=== PATIENT | female | born 1970 | race Hispanic/Latino ===

== ENCOUNTER 2018-03-12 22:17 | Inpatient (IN) | payer OTHER ==
[2018-03-12 23:12] LABS: Absolute Lymphocytes (CBC) 3.1 K/uL (0.7-4.9); Absolute Monocytes 0.7 K/uL (0.1-1.3); Basophils % 0.6 % (0-1.3); Eosinophils % 1.7 % (0-4.4); Lymphocytes % 28.1 % (15.3-44.8); MCV 89.2 fL (80-100); MPV 8.4 fL (7.6-11.3); Monocytes % 6.1 % (3.3-12.3); RBC Red Blood Cell Count 4.37 M/uL (3.86-4.86)
[2018-03-12] MEDS ORDERED: MORPHINE 4 MG/ML SYR ONE (23:13)
[2018-03-12] MEDS ORDERED: NA CHLORIDE 0.9% 2,000 ML ONE (23:13)
[2018-03-12] MEDS ORDERED: ONDANSETRON 4 MG/2 ML VIAL ONE (23:13)
[2018-03-12 23:29] LABS: Urine Blood NEGATIVE (NEG); Urine Glucose NEGATIVE (NEG); Urine Protein NEGATIVE (NEG)
[2018-03-12 23:30] LABS: Urine RBC <5 /HPF (NONE SEEN)
[2018-03-12 23:30] LABS: ALT/SGPT 24 U/L (12-78); AST/SGOT 13 U/L (15-37); Albumin 3.5 g/dL (3.4-5.0); Alkaline Phosphatase 88 U/L (45-117); Amylase Level 52 U/L (25-115); BUN Blood Urea Nitrogen 13 mg/dL (7-18); Bicarbonate 31 mmol/L (21-32); Bilirubin Direct 0.1 mg/dL (0-0.2); Bilirubin Total 0.3 mg/dL (0.2-1.0); Glucose Level 93 mg/dL (74-106); Lipase 123 U/L (73-393); Potassium 3.5 mmol/L (3.5-5.1); Protein, Total 7.2 g/dL (6.4-8.2); Sodium Level 142 mmol/L (136-145)
[2018-03-12 23:31] LABS: Urine Bacteria <20 /HPF (<20); Urine Culture Reflex Order NOT NEEDED
[2018-03-13] MEDS ORDERED: MORPHINE 4 MG/ML SYR ONE (01:11)
--- NOTE | 2018-03-13 01:21 | EDPHYS ---
Physician Documentation [facility] Name: Catherine Rockwell Age: 48 yrs Sex: Female : 1970 Arrival Date: 03/12/2018 Time: 22:22 Bed 18 Private MD: ED Physician Sourav Webster HPI: 03/12 22:54 This 48 yrs old Female presents to ER via Ambulatory with complaints of pkl Abdominal Pain, Pelvic Pain. 22:54 The patient presents with abdominal pain in the left lower quadrant. Onset: The pkl symptoms/episode began/occurred 2 month(s) ago, and became worse today. 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 - Social history:: Smoking status: Patient uses tobacco products, smokes one-half pack cigarettes per day. - Ebola Screening: : No symptoms or risks identified at this time. ROS: 22:54 Eyes: Negative for injury, pain, redness, and discharge, ENT: Negative for injury, pkl pain, and discharge, Neck: Negative for injury, pain, and swelling, Cardiovascular: Negative for chest pain, palpitations, and edema, Respiratory: Negative for shortness of breath, cough, wheezing, and pleuritic chest pain. 22:54 Abdomen/GI: Positive for abdominal pain, of the left lower quadrant. 22:54 Back: Negative for acute changes. 22:54 : Negative for urinary symptoms. 22:54 MS/extremity: Negative for acute changes. 22:54 Skin: Negative for rash. 22:54 Neuro: Negative for altered mental status. Exam: 22:54 Head/Face: Normocephalic, atraumatic. Eyes: Pupils equal round and reactive to light, pkl extra-ocular motions intact. Lids and lashes normal. Conjunctiva and sclera are non-icteric and not injected. Cornea within normal limits. Periorbital areas with no swelling, redness, or edema. ENT: Nares patent. No nasal discharge, no septal abnormalities noted. Tympanic membranes are normal and external auditory canals are clear. Oropharynx with no redness, swelling, or masses, exudates, or evidence of obstruction, uvula midline. Mucous membranes moist. Neck: Trachea midline, no thyromegaly or masses palpated, and no cervical lymphadenopathy. Supple, full range of motion without nuchal rigidity, or vertebral point tenderness. No Meningismus. Chest/axilla: Normal chest wall appearance and motion. Nontender with no deformity. No lesions are appreciated. Cardiovascular: Regular rate and rhythm with a normal S1 and S2. No gallops, murmurs, or rubs. Normal PMI, no JVD. No pulse deficits. Respiratory: Lungs have equal breath sounds bilaterally, clear to auscultation and percussion. No rales, rhonchi or wheezes noted. No increased work of breathing, no retractions or nasal flaring. 22:54 Abdomen/GI: Bowel sounds: normal, Palpation: soft, mild abdominal tenderness, in the left lower quadrant. 22:54 Back: Exam negative for acute changes. 22:54 : Exam negative for acute changes. 22:54 Musculoskeletal/extremity: Exam is negative for acute changes. 22:54 Skin: Exam negative for rash. 22:54 Neuro: Orientation: is normal, Mentation: is normal, Cranial nerves: grossly normal, Motor: is normal. Vital Signs: 22:32 BP 120 / 49; Pulse 97; Resp 18; Temp 97.9(O); Pulse Ox 97% on R/A; Weight 90.72 kg; lp1 Height 5 ft. 3 in. (160.02 cm); Pain 6/10; 03/13 00:55 BP 122 / 55; Pulse 85; Resp 18; Pulse Ox 99% on R/A; Pain 5/10; lp1 02:02 BP 135 / 58; Pulse 88; Resp 16; Pulse Ox 99% ; Pain 0/10; ao 03/12 22:32 Body Mass Index 35.43 (90.72 kg, 160.02 cm) lp1 MDM: 03/12 22:44 Patient medically screened. pkl 03/13 00:21 Data reviewed: vital signs, nurses notes, lab test result(s), radiologic studies, CT pkl scan. 01:16 ED course: Talked to Dr. Lee. Admit. pkl 03/12 22:52 Order name: Amylase, Serum pkl 03/12 22:52 Order name: Basic Metabolic Panel pkl 03/12 22:52 Order name: CBC with Diff; Complete Time: 23:26 pkl 03/12 22:52 Order name: Creatinine for Radiology; Complete Time: 23:32 pkl 03/12 22:52 Order name: Hepatic Function; Complete Time: 23:32 pkl 03/12 22:52 Order name: Lipase; Complete Time: 23:32 pkl 03/12 22:52 Order name: Urine Microscopic Only; Complete Time: 23:32 pkl 03/12 22:52 Order name: CT Abd/Pelvis - W/Contrast pkl 03/12 22:53 Order name: Amylase Level; Complete Time: 23:32 EDMS 03/12 22:53 Order name: Basic Metabolic Panel; Complete Time: 23:32 EDMS 03/12 23:02 Order name: Urine Dipstick--Ancillary (enter results); Complete Time: 23:32 2 03/12 23:02 Order name: Urine --Ancillary (enter results); Complete Time: 23:32 2 03/12 22:52 Order name: IV Saline Lock; Complete Time: 23:17 pkl 03/12 22:52 Order name: Labs collected and sent; Complete Time: 23:16 pkl 03/12 22:52 Order name: Urine Dipstick-Ancillary (obtain specimen); Complete Time: 23:16 pkl Administered Medications: 03/12 23:16 Drug: NS 0.9% 1000 ml Route: IV; Rate: 1000 ml; Site: left antecubital; lp1 03/13 02:16 Follow up: IV Status: Completed infusion; IV Intake: 1000ml ao 03/12 23:16 Drug: morphine 4 mg Route: IVP; Site: left antecubital; lp1 03/13 00:00 Follow up: Response: Pain is decreased lp1 03/12 23:16 Drug: Zofran 4 mg Route: IVP; Site: left antecubital; lp1 03/13 00:00 Follow up: Response: No adverse reaction lp1 01:10 Drug: morphine 4 mg Route: IVP; Site: left antecubital; ao 01:48 Follow up: Response: No adverse reaction ao 02:00 Drug: NS 0.9% 1000 ml Route: IV; Rate: 125 ml/hr; Site: left antecubital; ao 02:16 Follow up: IV Status: Infusion continued upon admission ao Disposition: 03/13/18 01:20 Hospitalization ordered by Vijay Lee for Inpatient Admission. Preliminary diagnosis is Diverticulitis with contained perforation. - Bed requested for Telemetry/MedSurg (Inpatient). - Status is Inpatient Admission. fc - Condition is Stable. - Problem is new. - Symptoms are unchanged. UTI on Admission? No Signatures: Dispatcher [employer] EDMS Asuncion Brown RN RN Sourav Summers MD MD pkRosangela Julian RN RN Yeimi Dinero RN RN lp1 Osiel Mclean RN RN ao Corrections: (The following items were deleted from the chart) 01:56 01:20 Hospitalization Ordered by Vijay Lee MD for Inpatient Admission. Preliminary kl diagnosis is Diverticulitis with contained perforation. Bed requested for Telemetry/MedSurg (Inpatient). Status is Inpatient Admission. Condition is Stable. Problem is new. Symptoms are unchanged. UTI on Admission? No. pkl 02:24 01:56 03/13/2018 01:20 Hospitalization Ordered by Vijay Lee MD for Inpatient fc Admission. Preliminary diagnosis is Diverticulitis with contained perforation. Bed requested for Telemetry/MedSurg (Inpatient). Status is Inpatient Admission. Condition is Stable. Problem is new. Symptoms are unchanged. UTI on Admission? No. kl
--- NOTE | 2018-03-13 01:21 | ER ---
Nurse's Notes [facility] Name: Catherine Rockwell Age: 48 yrs Sex: Female : 1970 Arrival Date: 03/12/2018 Time: 22:22 Bed 18 Private MD: Diagnosis: Diverticulitis with contained perforation Presentation: 03/12 22:31 Presenting complaint: Patient states: Pelvic pressure/pain that has been for 2 months, lp1 but today began to have pain to LLQ of abdomen; Denies any fever, N/V; Diarrhea x 1 today. Transition of care: patient was not received from another setting of care. Onset of symptoms was March 12, 2018. Risk Assessment: Do you want to hurt yourself or someone else? Patient reports no desire to harm self or others. Initial Sepsis Screen: Does the patient meet any 2 criteria? No. Patient's initial sepsis screen is negative. Does the patient have a suspected source of infection? No. Patient's initial sepsis screen is negative. Care prior to arrival: None. 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 - Social history:: Smoking status: Patient uses tobacco products, smokes one-half pack cigarettes per day. - Ebola Screening: : No symptoms or risks identified at this time. Screenin:36 Abuse screen: Denies threats or abuse. Denies injuries from another. Nutritional lp1 screening: No deficits noted. Tuberculosis screening: No symptoms or risk factors identified. Fall Risk None identified. Assessment: 22:34 General: Appears in no apparent distress. Behavior is appropriate for age. Pain: lp1 Complains of pain in suprapubic area and left lower quadrant Pain currently is 6 out of 10 on a pain scale. Quality of pain is described as "spasm-like" Pain began today. Neuro: Level of Consciousness is awake, alert, obeys commands. Cardiovascular: Patient's skin is warm and dry. Respiratory: Respiratory effort is even, unlabored. GI: Abdomen is non-distended, Bowel sounds present X 4 quads. Abdomen is tender to palpation in suprapubic area and left lower quadrant. : Denies burning with urination, discharge. EENT: No signs and/or symptoms were reported regarding the EENT system. Derm: Skin is pink, warm \\T\\ dry. Musculoskeletal: Circulation, motion, and sensation intact. 23:17 Reassessment: CT notified of patient completing oral contrast at 2309. lp1 03/13 00:55 Reassessment: Returned from CT; States pain to LLQ of abdomen is coming back; Provider lp1 notified. 01:20 Reassessment: Received report from TESS Jalloh who was move to a different pot. Patient ao is AOX3 with stable VS. Patient o be medicated with morphine for patient. Awaiting on admission orders at this time. Patient is aware of admission. 02:02 Reassessment: Patient appears in no apparent distress at this time. Patient and/or ao family updated on plan of care and expected duration. Pain level reassessed. Patient is alert, oriented x 3, equal unlabored respirations, skin warm/dry/pink. Waiting on room assignment. Vital Signs: 03/12 22:32 BP 120 / 49; Pulse 97; Resp 18; Temp 97.9(O); Pulse Ox 97% on R/A; Weight 90.72 kg; lp1 Height 5 ft. 3 in. (160.02 cm); Pain 6/10; 03/13 00:55 BP 122 / 55; Pulse 85; Resp 18; Pulse Ox 99% on R/A; Pain 5/10; lp1 02:02 BP 135 / 58; Pulse 88; Resp 16; Pulse Ox 99% ; Pain 0/10; ao 03/12 22:32 Body Mass Index 35.43 (90.72 kg, 160.02 cm) lp1 ED Course: 03/12 22:22 Patient arrived in ED. es 22:31 Yeimi Dinero, RN is Primary Nurse. lp1 22:32 Triage completed. lp1 22:33 Arm band placed on right wrist. lp1 22:36 Patient has correct armband on for positive identification. Bed in low position. lp1 22:44 Sourav Webster MD is Attending Physician. pkl 23:00 Inserted saline lock: 20 gauge in left antecubital area, using aseptic technique. Blood lp1 collected. 23:00 Urine collected: clean catch specimen, clear. lp1 09 00:[address] via wheelchair. kw1 00:41 CT Abd/Pelvis - W/Contrast In Process Unspecified. EDMS 00:42 CT completed. Patient tolerated procedure well. Patient moved back from CT. kw1 00:59 Report given to Osiel Mclean RN. lp1 01:18 Vijay Lee MD is Hospitalizing Provider. pkl 02:12 No provider procedures requiring assistance completed. Patient admitted, IV remains in ao place. Administered Medications: 03/12 23:16 Drug: NS 0.9% 1000 ml Route: IV; Rate: 1000 ml; Site: left antecubital; lp1 03/13 02:16 Follow up: IV Status: Completed infusion; IV Intake: 1000ml ao 03/12 23:16 Drug: morphine 4 mg Route: IVP; Site: left antecubital; lp1 03/13 00:00 Follow up: Response: Pain is decreased lp1 03/12 23:16 Drug: Zofran 4 mg Route: IVP; Site: left antecubital; lp1 03/13 00:00 Follow up: Response: No adverse reaction lp1 01:10 Drug: morphine 4 mg Route: IVP; Site: left antecubital; ao 01:48 Follow up: Response: No adverse reaction ao 02:00 Drug: NS 0.9% 1000 ml Route: IV; Rate: 125 ml/hr; Site: left antecubital; ao 02:16 Follow up: IV Status: Infusion continued upon admission ao Intake: 02:16 IV: 1000ml; Total: 1000ml. ao Outcome: 01:20 Decision to Hospitalize by Provider. pkl 02:15 Admitted to Med/surg accompanied by nurse, room 204, Report called to TESS Colón ao 02:15 Condition: stable 02:15 Instructed on the need for admit. 02:24 Patient left the ED. fc Signatures: Dispatcher [employer] EDMS Sourav Webster MD MD pkClover Reaves Felicia, RN RN Yeimi Dinero RN RN lp1 Osiel Mclean RN RN ao Wilhelm, Kimberly kw1
[2018-03-13] MEDS ORDERED: ACETAMINOPHEN 500 MG TAB PO PRN (01:31)
[2018-03-13] MEDS: D5 0.45 NS 1,000 ML IV SCH ×4 (02:38→22:24)
[2018-03-13] MEDS: Levofloxacin500mg IV 500 MG/100 ML BAG IV SCH (02:42)
[2018-03-13] MEDS ORDERED: PNEUMOCOCCAL VACCINE 0.5 ML IMVAC ONE (05:00)
[2018-03-13] MEDS: MORPHINE 4 MG/ML SYR IV PRN ×5 (05:14→22:25)
[2018-03-13] MEDS: METRONIDAZOLE 500mg IVPB 500 MG/100 ML BAG IV SCH ×3 (05:15→18:10)
--- NOTE | 2018-03-13 06:57 | RAD REPORT ---
EXAM DESCRIPTION: CT - Abdomen Pelvis W Contrast - 03/13/2018 3:34 am CLINICAL HISTORY: Abdominal pain, pelvic pressure and pain, left lower quadrant localization A preliminary report was provided at the time of the study and reviewed prior to final report. COMPARISON: None. TECHNIQUE: Biphasic, helical CT imaging of the abdomen and pelvis was performed following 100 ml non -ionic IV contrast. Oral contrast was given. All CT scans are performed using dose optimization technique as appropriate and may include automated exposure control or mA/KV adjustment according to patient size. FINDINGS: No suspicious findings in the lung bases. The liver, spleen, and pancreas show no suspicious findings. Liver is borderline fatty infiltrated. G allbladder is absent. Biliary tree within normal limits for post cholecystectomy patient. Symmetric renal function is seen with no hydronephrosis or suspicious renal mass. No pyelonephritis o r acute renal parenchymal process. No adrenal abnormality. No gastric dilatation or wall thickening. No small bowel abnormality. Appendix is normal. From cecum through descending colon there is no significant finding. Patient has a relatively mild sigmoid diverticulosis pattern. At the proximal sigmoid there is relati vely mild wall thickening. Extending anteriorly and medially towards the midline there is a 3.5 centi meter area of edematous/inflammatory stranding and punctate free air. The stranding and abuts the ant erior bladder wall with secondary urinary bladder wall involvement. No air within the lumen of the bl adder. Trace amount of fluid is present within the central portion of the inflammatory extraluminal m ass. This is not yet a drainable fluid collection. Uterus is absent. No suspicious ovarian finding. There is a small 15 millimeter cyst of the right ova ry. No pneumatosis. No other area of free air. No abnormal fluid collection. No hernia, mass or bulk y lymphadenopathy. No suspicious bony findings. IMPRESSION: Acute diverticulitis of the proximal sigmoid colon with a 3.5 centimeter area of extralu flako inflammatory stranding, free air and trace free fluid. This collection is medial to the sigmoid colon where there is secondary involvement of the anterior u rinary bladder wall. This is not yet a drainable fluid collection.
--- NOTE | 2018-03-13 15:25 | P.HP ---
Date of Service: 03/13/18 PC: This 48-year-old female presents emergency room with severe lower abdominal pain for diagnosis and treatment. HPC: Patient has been having intermittent pain off and on for the last few weeks. Describes it as appearing to be used cramping in nature. Located just beyond the pubic symphysis. It shoots up the inside his house she describes it. PMH: Morbid obesity PSHx: Negative SOC: No known allergy SYS REVIEW: No cough, wheeze, shortness of breath. No chest pain or palpitations. States he may have sleep apnea. No altercation bowel habit. O/E awake alert comfortable at the moment HEENT: Not jaundiced Chest: Air movement equal bilaterally ABD: Soft. Mild suprapubic tenderness but no guarding or rebound LOCO: Intact DATA: CT scan shows diverticular disease with 2 small areas of inflammatory processes p.m. the bladder IMPRESSION: Diverticulitis, possible developing abscess PLAN: The patient has been admitted to the hospital for observation and pain control. She will also receive entered the antibiotics. We will follow closer clinical results and her white cell count. At the current time she is stable, and is not requiring any emergency surgical intervention. The patient leave the hospital for the next 24-48 hr on IV antibiotics. She will most likely be discharged on the time an oral medication. We will talk to her further down the line about possible elective resection. She inner has been understand, questions were answered, and they are content with this outlined treatment.
[2018-03-14] MEDS: METRONIDAZOLE 500mg IVPB 500 MG/100 ML BAG IV SCH ×5 (00:21→23:44)
[2018-03-14] MEDS: Levofloxacin500mg IV 500 MG/100 ML BAG IV SCH (01:27)
[2018-03-14] MEDS: MORPHINE 4 MG/ML SYR IV PRN ×2 (03:58→13:00)
[2018-03-14 05:45] LABS: Absolute Lymphocytes (CBC) 1.9 K/uL (0.7-4.9); Absolute Monocytes 0.5 K/uL (0.1-1.3); Absolute Neutrophil 7.7 K/uL (1.8-8.0); Basophils % 0.7 % (0-1.3); Hematocrit 36.7 % (36.0-45.0); Lymphocytes % 18.3 % (15.3-44.8); MCV 89.8 fL (80-100); MPV 8.4 fL (7.6-11.3); Monocytes % 5.3 % (3.3-12.3); RBC Red Blood Cell Count 4.09 M/uL (3.86-4.86)
[2018-03-14] MEDS: PROMETHAZINE 25 MG/ML VIAL IV PRN ×2 (05:47→19:40)
[2018-03-14 05:52] LABS: BUN Blood Urea Nitrogen 6 mg/dL (7-18); Bicarbonate 28 mmol/L (21-32); Glucose Level 130 mg/dL (74-106); Potassium 3.8 mmol/L (3.5-5.1); Sodium Level 138 mmol/L (136-145)
[2018-03-14] MEDS: D5 0.45 NS 1,000 ML IV SCH ×2 (10:28→18:06)
--- NOTE | 2018-03-14 15:39 | P.PN ---
Date of Service: 03/14/18 No complaints today, tolerated her full liquids. Feels much better. Has only had 1 route 2 twinges of pain from her lower abdomen. O: Abdomen is soft, nontender, no guarding or rebound. White cell count is improved. A: Improving P: Continue IV antibiotics, advance diet as tolerated. Anticipate discharge soon.
[2018-03-14] MEDS: HYDROCODONE/APAP 7.5/325 MG TAB PO PRN (18:06)
[2018-03-15] MEDS: Levofloxacin500mg IV 500 MG/100 ML BAG IV SCH (01:50)
[2018-03-15] MEDS: MORPHINE 4 MG/ML SYR IV PRN ×2 (03:04→22:20)
[2018-03-15] MEDS: METRONIDAZOLE 500mg IVPB 500 MG/100 ML BAG IV SCH ×3 (05:00→18:19)
[2018-03-15] MEDS: D5 0.45 NS 1,000 ML IV SCH ×3 (09:46→18:20)
[2018-03-15] MEDS: HYDROCODONE/APAP 7.5/325 MG TAB PO PRN ×2 (10:22→14:28)
--- NOTE | 2018-03-15 22:36 | P.PN ---
Date of Service: 03/15/18 S: Patient states she is doing better today, less pain. He has some discomfort late this evening. Had 2 bowel movements, and is tolerating a diet. States her discomfort occurs when her bladder gets full. O: Abdomen is soft, minimal tenderness on deep palpation A: White cell count is normal with slight left shift P: I will repeat her CBC in the a.m.. If it remains normal, and she is still tolerating a diet, will discharge her at that time. She will be sent home on antibiotics as well as pain medicine. She will follow up with me in my office on Tuesday. At that point we will evaluate whether not of repeat CT scan would be of benefit. I have discussed this plan with the patient and her spouse. lázaro
[2018-03-16] MEDS: METRONIDAZOLE 500mg IVPB 500 MG/100 ML BAG IV SCH ×3 (00:19→13:39)
[2018-03-16] MEDS: Levofloxacin500mg IV 500 MG/100 ML BAG IV SCH (01:51)
[2018-03-16] MEDS: D5 0.45 NS 1,000 ML IV SCH ×2 (01:51→10:00)
[2018-03-16] MEDS: MORPHINE 4 MG/ML SYR IV PRN (02:02)
[2018-03-16 04:45] LABS: Absolute Lymphocytes (CBC) 2.6 K/uL (0.7-4.9); Absolute Monocytes 0.8 K/uL (0.1-1.3); Absolute Neutrophil 7.7 K/uL (1.8-8.0); Basophils % 0.5 % (0-1.3); Eosinophils % 1.8 % (0-4.4); Hematocrit 40.4 % (36.0-45.0); MCH 30.3 pg (27.0-35.0); MCV 89.5 fL (80-100); MPV 8.6 fL (7.6-11.3); Monocytes % 7.2 % (3.3-12.3); RBC Red Blood Cell Count 4.52 M/uL (3.86-4.86)
[2018-03-16] MEDS: PROMETHAZINE 25 MG/ML VIAL IV PRN (14:32)
--- NOTE | 2018-03-16 17:05 | RAD REPORT ---
EXAM DESCRIPTION: CT - Chest Abd Pelvis Wo Con - 03/16/2018 4:50 pm CLINICAL HISTORY: Chest and abdominal pain. COMPARISON: March 12, 2018 TECHNIQUE: Computed axial tomography of the chest, abdomen and pelvis was obtained. Oral contrast wa s given. IV contrast was not requested. All CT scans are performed using dose optimization technique as appropriate and may include automated exposure control or mA/KV adjustment according to patient size. FINDINGS: The evaluation of mediastinum, chanell, vessels and solid organs is limited secondary to the lack of IV contrast administration No mediastinal or hilar lymphadenopathy is seen. A pleural effusion is not present. A pericardial effusion is not seen. Lungs are clear. The liver, spleen, pancreas, adrenals and kidneys appear grossly normal. The gallbladder has been removed The wall of the proximal sigmoid colon is thickened. Diverticula are noted. The phlegmonous collectio n anteromedial to the sigmoid colon is minimally diminished in size. A couple of the air bubbles have resolved. The wall of the adjacent bladder is thickened. A fluid-filled abscess is not noted IMPRESSION: Minimal improvement in a perforated sigmoid diverticulitis
--- NOTE | 2018-03-16 17:31 | P.DS ---
Admission Date: 03/13/18 Discharge Date: 03/16/18 Disposition: ROUTINE DISCHARGE Discharge Condition: GOOD Reason for Admission: Abdominal pain Brief History of Present Illness: This patient presented emergency room with severe abdominal pain for diagnosis and treatment. Has noticed that she has been having pain, particularly when she has to empty her bladder. Describes it as severe, shooting pain, up into her back. Hospital Course: The patient was seen in the emergency room. A CT scan demonstrated in the area between the bladder and the sigmoid colon with some phlegmonous changes and some small pockets of air in the subcutaneous tissue. The patient was admitted with a presumptive diagnosis of diverticulitis with inflammatory changes. She was started on IV antibiotics. She has responded to the point were her pain is a lot less, she is tolerating a diet, and she feels much better. The white cell count this morning showed that her white count had bumped to 11,000. The repeat CT scan shows minimal improvement to the area with IV antibiotics however some of the air pockets appear to have resolved. I have discussed with her and her her options. At the current time she would like to go home , continue on oral antibiotics, and have some pain medicine as backup. She understands issues she wished are running temperature, fever, notice a pain in the quality of her discomfort that she has returned to the emergency room, or contact me. She will be see me in my office on Tuesday. I have explained to within is possible that she may develop an abscess, but its location being so close to the anterior wall with no intervening bowel it may possibly be percutaneously drained. To take her to the operating room now for a sigmoid resection would necessitate the most likely having to perform a colostomy and a second-stage procedure. She would prefer outpatient therapy to see if all her issues resolve with a follow-up CT scan a couple weeks. Vital Signs/Physical Exam: Temp Pulse Resp BP Pulse Ox 97.7 F 81 18 120/73 94 03/16/18 12:00 03/16/18 12:00 03/16/18 12:00 03/16/18 12:00 03/16/18 12:00 Laboratory Data at Discharge: WBC 11.4 K/uL (4.3-10.9) H 03/16/18 04:15 Hgb 13.7 g/dL (12.0-15.0) 03/16/18 04:15 Hct 40.4 % (36.0-45.0) 03/16/18 04:15 Plt Count 303 K/uL (152-406) 03/16/18 04:15 Sodium 138 mmol/L (136-145) 03/14/18 05:20 Potassium 3.8 mmol/L (3.5-5.1) 03/14/18 05:20 BUN 6 mg/dL (7-18) L 03/14/18 05:20 Creatinine 0.70 mg/dL (0.55-1.3) 03/14/18 05:20 Glucose 130 mg/dL (74-106) H 03/14/18 05:20 Total Bilirubin 0.3 mg/dL (0.2-1.0) 03/12/18 23:00 AST 13 U/L (15-37) L 03/12/18 23:00 ALT 24 U/L (12-78) 03/12/18 23:00 Alkaline Phosphatase 88 U/L (45-117) 03/12/18 23:00 Amylase 52 U/L (25-115) 03/12/18 23:00 Lipase 123 U/L (73-393) 03/12/18 23:00 Home Medications: Biotin 1 tab PO DAILY 03/13/18 Lactobacillus Acidophilus [Acidophilus] 1 tab PO DAILY 03/13/18
== END 2018-03-16 18:51 | disposition home or self-care (01) | DRG 392 ==
LOC: ER 22:17 → ERHOLD 03-13 01:29 → 2ND 03-13 02:07
PROVIDERS: ADMIT Surgery; ATTEND Surgery
DX: K57.92 Diverticulitis of intestine, part unspecified, without perforation or abscess without bleeding (principal); Z23 Encounter for immunization
CPT/HCPCS: 36415; 71250; 74176; 74177; 80048; 80076; 81003; 81015; 81025; 82150; 83690; 85025; 90670; 96361; 96374; 96375; 99285; G0009; J2405; J2550; J7030; Q9967

== ENCOUNTER 2019-01-04 16:18 | Inpatient (IN) | payer OTHER ==
--- OUTSIDE RECORDS SUMMARY | 2019-01-04 16:23 | XMS REPORT | Continuity of Care Document ---
:1970 Author Organization [facility] Care Team Providers Name Role Phone [employer] Unavailable Unavailable Problems Problem Status Onset Classification Date Comments Source Date Reported Discharge 01/05/2017 [place] Diagnosis: 7 [place] Diverticulitis Discharge 01/05/2017 [place] Diagnosis: Urinary 7 [place] tract infection Discharge 10/12/2016 [place] Diagnosis: Upper 7 [place] respiratory infection FEVER Active [place] 7 [place] Discharge 10/11/2016 [place] Diagnosis: Cough 7 [place] Discharge 10/11/2016 [place] Diagnosis: Tobacco 7 [place] use disorder Discharge 10/11/2016 [place] Diagnosis: Viral 7 [place] syndrome FEVER, DIARRHEA Active [place] 7 [place] Medications Medication Details Route Status Patient Ordering Order Source Instructions Provider Date Acetaminophen 300 1 - 2 tab, PO, Active MH MG / Codeine Q4H, PRN Pain, X 2017 [place] Phosphate 30 MG 3 day, # 20 tab, [place] Oral Tablet 0 Refill(s) [Tylenol with Codeine #3] ciprofloxacin 500 500 mg=1 tab, Active 01/02/ MH mg oral tablet PO, Q12H, X 10 2017 [place] day, # 20 tab, 0 [place] Refill(s) Metronidazole 500 500 mg=1 tab, Active 01/02/ MH MG Oral Tablet PO, Q8H, X 10 2017 [place] [Flagyl] day, # 30 tab, 0 [place] Refill(s) 200 ML 400 mg, 200 mL, Inactive Ciprofloxacin 2 Route: IVPB, 2016 [place] MG/ML Injection Drug form: INJ, [place] [id number], Dosing Weight 82.045, kg, Start date: 01/02/17 3:00:00 CDT, Duration: 10 day, Stop date: 01/11/17 15:00:00 CDT, ABX Indication: Intra-abdominal InfectionNotes: Do not refrigerate Flagyl 500 mg, 100 mL, No Longer Route: IVPB, Active 2016 [place] Drug form: INJ, [place] Q8H, Dosing Weight 82.045, kg, Start date: 01/01/17 22:00:00 CDT, Duration: 10 day, Stop date: 01/11/17 14:00:00 CDT, ABX Indication: Intra-abdominal InfectionNotes: (Same as: Flagyl) Avoid alcohol. sodium chloride 1,000 mL, Rate: No Longer 0.9% 1000 ml INJ 100 ml/hr, Active 2016 [place] 1,000 mL Infuse over: 10 [place] hr, Route: IV, Dosing Weight 82.045 kg, Total Volume: 1,000, Start date: 01/01/17 14:08:00 CDT, Duration: 30 day, Stop date: 01/31/17 14:07:00 CDT tramadol 50 mg, 1 tab, No Longer hydrochloride 50 Route: PO, Drug Active 2016 [place] MG Oral Tablet form: TAB, Q6H, [place] Dosing Weight 82.045, kg, PRN Pain Score 1-3, Start date: 01/01/17 14:06:00 CDT, Duration: 30 day, Stop date: 01/31/17 14:05:00 CDTNotes: Not to exceed 400mg/day. (Same As: Ultram) Morphine 2 mg, 0.5 mL, No Longer Route: IVP, Drug Active 2016 [place] form: SOLN, Q4H, [place] Dosing Weight 82.045, kg, PRN Pain Score 4-6, Start date: 01/01/17 14:06:00 CDT, Duration: 30 day, Stop date: 01/31/17 14:05:00 CDTNotes: (Same as:MORPhine Sulfate) Zofran 4 mg, 2 mL, No Longer Route: IVP, Drug Active 2016 [place] form: INJ, Q4H, [place] Dosing Weight 82.045, kg, PRN Nausea, Start date: 01/01/17 14:06:00 CDT, Duration: 30 day, Stop date: 01/31/17 14:05:00 CDTNotes: (Same as: Zofran) MEDICATION WASTE Product Size: 4 mg Product Wasted: ___ mg Tylenol 650 mg, 2 tab, No Longer Route: PO, Drug Active 2016 [place] form: TAB, Q4H, [place] Dosing Weight 82.045, kg, PRN For Temp > 100.4 F, Start date: 01/01/17 14:06:00 CDT, Duration: 30 day, Stop date: 01/31/17 14:05:00 CDTNotes: Do not exceed 4 gm/day. (Same as: Tylenol) Dilaudid 1 mg, Route: Inactive IVP, ONCE, 2016 [place] Dosing Weight [place] 82.045, kg, Priority: STAT, Start date: 01/01/17 13:13:00 CDT, Stop date: 01/01/17 13:13:00 CDT Flagyl 500 mg, Route: Inactive IVPB, ONCE, 2016 [place] Dosing Weight [place] 82.045, kg, Priority: STAT, Start date: 01/01/17 13:05:00 CDT, Duration: 1 doses or times, Stop date: 01/01/17 13:05:00 CDT, ABX Indication: Intra-abdominal Infection Cipro 400 mg, 200 mL, Inactive Route: IVPB, 2016 [place] Drug form: INJ, [place] ONCE, Dosing Weight 82.045, kg, Priority: STAT, Start date: 01/01/17 13:05:00 CDT, Duration: 1 doses or times, Stop date: 01/01/17 13:05:00 CDT, ABX Indication: Intra-abdominal InfectionNotes: Do not refrigerate Metronidazole 500 500 mg=1 tab, No Longer MG Oral Tablet PO, Q8H, X 10 Active 2016 [place] [Flagyl] day, # 30 tab, 0 [place] Refill(s) Ondansetron 4 mg, Route: Inactive IVP, ONCE, 2016 [place] Dosing Weight [place] 82.045, kg, Priority: STAT, Start date: 01/01/17 12:11:00 CDT, Stop date: 01/01/17 12:11:00 CDT Ketorolac 30 mg, Route: Inactive IVP, ONCE, 2016 [place] Dosing Weight [place] 82.045, kg, Priority: STAT, Start date: 01/01/17 12:11:00 CDT, Stop date: 01/01/17 12:11:00 CDT Sodium Chloride 1,000 mL, 2,000 Inactive 0.154 MEQ/ML ml/hr, Infuse 2017 [place] Injectable Over: 30 [place] Solution minutes, Route: IV, ONCE, Priority: STAT, Dosing Weight 82.045 kg, Start date: 01/01/17 12:11:00 CDT, Duration: 1 doses or times, Stop date: 01/01/17 12:11:00 CDT Saline Flush 0.9% 10 mL, Route: No Longer IVP, Drug Form: Active 2017 [place] INJ, Dosing [place] Weight 82.045, kg, PRN, PRN Line Flush, Start date: 01/01/17 12:11:00 CDT, Duration: 30 day, Stop date: 01/31/17 12:10:00 CDTNotes: (Same as: BD Posiflush) Tylenol 650 mg, 2 tab, Inactive Route: PO, Drug 2017 [place] form: TAB, ONCE, [place] Dosing Weight 89.148, kg, Priority: STAT, Start date: 10/09/16 5:55:00 CDT, Stop date: 10/09/16 5:55:00 CDTNotes: Do not exceed 4 gm/day. (Same as: Tylenol) 12 HR Loratadine 1 tab, PO, Q12H, Active 5 MG / X 7 day, # 14 2016 [place] Pseudoephedrine tab, 0 Refill(s) [place] sulfate 120 MG Extended Release Tablet [Claritin-D] ibuprofen 600 mg 600 mg=1 tab, Active oral tablet PO, Q8H, PRN 2017 [place] Pain or Fever, Land Take with food, X 10 day, # 30 tab, 0 Refill(s) acetaminophen 500 500 mg=1 tab, Active mg oral tablet PO, Q4H, PRN 2017 [place] Pain, X 10 day, Land # 60 tab, 0 Refill(s) Albuterol 0.833 3 mL, Route: Inactive MG/ML / NEB, Drug Form: 2017 [place] Ipratropium SOLN, Dosing [place] 0.167 Weight 89.148, MG/ML Inhalant kg, ONCE, STAT, Solution Start date: 10/09/16 5:37:00 CDT, Stop date: 10/09/16 5:37:00 CDTNotes: (Same as: Duoneb) Ibuprofen 600 mg, 1 tab, Inactive Route: PO, Drug 2016 [place] form: TAB, ONCE, Land Dosing Weight 89.148, kg, Priority: STAT, Start date: 10/09/16 5:37:00 CDT, Stop date: 10/09/16 5:37:00 CDTNotes: (Same as: Motrin) "Do Not Crush" Take with food. 200 ACTUAT 2 puff, Active Albuterol 0.09 INHALATION, Q6H, 2016 [place] MG/ACTUAT Metered PRN Cough, # 9 Land Dose Inhaler gm, 0 Refill(s) Albuterol 0.83 2.49 mg, Route: Inactive MG/ML Inhalant NEB, Drug form: 2017 [place] Solution SOLN, ONCE, Land Dosing Weight 89.364, kg, Priority: STAT, Start date: 10/08/16 22:00:00 CDT, Stop date: 10/08/16 22:00:00 CDT Ketorolac 30 mg, 1 mL, Inactive Route: IM, Drug 2016 [place] form: INJ, ONCE, [place] Dosing Weight 89.364, kg, Priority: STAT, Start date: 10/08/16 21:43:00 CDT, Stop date: 10/08/16 21:43:00 CDTNotes: (Same as:Toradol) IV bolus must be given >15 seconds. Give IM administration slowly and deeply into the muscle. Not for use > 4 days MEDICATION WASTE Product Size: 30 mg Product Wasted: ___ mg Zofran ODT 8 mg, 2 tab, Inactive Route: PO, Drug 2016 [place] form: TABDIS, [place] ONCE, Dosing Weight 89.364, kg, Priority: STAT, Start date: 10/08/16 21:40:00 CDT, Stop date: 10/08/16 21:40:00 CDTNotes: (Same as: Zofran ODT) Ibuprofen 600 mg, Route: Inactive PO, Drug form: 2016 [place] TAB, ONCE, [place] Dosing Weight 89.364, kg, Priority: STAT, Start date: 10/08/16 21:40:00 CDT, Stop date: 10/08/16 21:40:00 CDT Allergies, Adverse Reactions, Alerts No Known Medication Allergies Immunizations No Data Provided for This Section Results Order Name Results Value Reference Date Interpretation Comments Source Range CHEM PANEL Magnesium Lvl 1.8 1.8 - 2.4 01/02 [place] CHEM PANEL Phosphorus 3.0 2.5 - 4.5 01/02 [place] CHEM PANEL eGFR 101 01/02 Result Comment: The [place] eGFR is Land calculated using the CKD-EPI formula. In most young, healthy individuals the eGFR will be >90 mL/min/1.73m2 . The eGFR declines with age. An eGFR of 60-89 may be normal in some populations, particularly the elderly, for whom the CKD-EPI formula has not been extensively validated. Use of the eGFR is not recommended in the following populations:< br/>
Zelda viduals with unstable creatinine concentration s, including patients and those with serious co-morbid conditions.<b r/>
Patie nts with extremes in muscle mass or diet.

The data above are obtained from the National Kidney Disease Education Program (NKDEP) which additionally recommends that when the eGFR is used in patients with extremes of body mass index for purposes of drug dosing, the eGFR should be multiplied by the estimated BMI. CHEM PANEL Potassium Lvl 3.7 3.5 - 5.1 01/02 [place] CHEM PANEL Chloride Lvl 110 95 - 109 01/02 [place] CHEM PANEL Creatinine Lvl 0.73 0.50 - 01/02 [facility] 1.40 [place] CHEM PANEL Sodium Lvl 143 135 - 145 01/02 [place] CHEM PANEL CO2 29 24 - 32 01/02 [place] CHEM PANEL AGAP 7.7 10.0 - 01/02 [facility] 20.0 [place] CHEM PANEL Calcium Lvl 7.5 8.5 - 10.5 01/02 [place] CHEM PANEL Glucose Lvl 97 70 - 99 01/02 [place] CHEM PANEL BUN 9 7 - 22 07/ /2016 [place] HEMATOLOGY Platelet 188 133 - 450 07/ /2016 [place] HEMATOLOGY RDW 12.6 11.5 - 07/ MH 14.5 /2016 [place] HEMATOLOGY MPV 9.0 7.4 - 10.4 07/ /2016 [place] HEMATOLOGY Hgb 11.4 12.0 - 07/ MH 16.0 /2016 [place] HEMATOLOGY MCV 90.2 80.0 - 07/ MH 98.0 /2017 [place] HEMATOLOGY Hct 34.3 36.0 - 07/ MH 48.0 /2016 [place] HEMATOLOGY WBC 9.0 3.7 - 10.4 07/ /2016 [place] HEMATOLOGY RBC 3.80 4.20 - 07 MH 5.40 /2016 [place] HEMATOLOGY MCH 30.0 27.0 - 07/ MH 31.0 /2016 [place] HEMATOLOGY MCHC 33.2 32.0 - 07 MH 36.0 /2016 [place] HEMATOLOGY Lymphocytes 24.8 20.0 - 07 MH 40.0 /2016 [place] HEMATOLOGY Segs 66.6 45.0 - 07/ MH 75.0 /2016 [place] HEMATOLOGY Monocytes 6.4 2.0 - 12.0 / /2016 [place] HEMATOLOGY Eosinophils 1.3 0.0 - 4.0 / [place] HEMATOLOGY Basophils 0.9 0.0 - 1.0 / /2016 [place] HEMATOLOGY Segs-Bands # 6.0 1.5 - 8.1 01/02 [place] HEMATOLOGY Basophils # 0.1 0.0 - 0.2 / [place] HEMATOLOGY Monocytes # 0.6 0.0 - 0.8 / [place] HEMATOLOGY Eosinophils # 0.1 0.0 - 0.5 / [place] HEMATOLOGY Lymphocytes # 2.2 1.0 - 5.5 01/02 [place] CHEM PANEL Lactic Acid 1.6 0.5 - 2.2 07/ MH Lvl /2016 [place] CHEM PANEL Lipase Lvl 102 73 - 393 01/01 [place] CHEM PANEL eGFR 77 07/ [facility] Comment: The [place] eGFR is [place] calculated using the CKD-EPI formula. In most young, healthy individuals the eGFR will be >90 mL/min/1.73m2 . The eGFR declines with age. An eGFR of 60-89 may be normal in some populations, particularly the elderly, for whom the CKD-EPI formula has not been extensively validated. Use of the eGFR is not recommended in the following populations:< br/>
Zelda viduals with unstable creatinine concentration s, including patients and those with serious co-morbid conditions.<b r/>
Patie nts with extremes in muscle mass or diet.

The data above are obtained from the National Kidney Disease Education Program (NKDEP) which additionally recommends that when the eGFR is used in patients with extremes of body mass index for purposes of drug dosing, the eGFR should be multiplied by the estimated BMI. CHEM PANEL Bili Total 0.8 0.2 - 1.3 01/01 [place] CHEM PANEL AST 11 0 - 37 01/01 [place] CHEM PANEL ALT 22 0 - 65 01/01 [place] CHEM PANEL Alk Phos 82 39 - 136 01/01 [place] CHEM PANEL CO2 27 24 - 32 01/01 [place] CHEM PANEL Albumin Lvl 3.8 3.5 - 5.0 01/01 [place] CHEM PANEL Total Protein 7.9 6.4 - 8.4 01/01 [place] CHEM PANEL Calcium Lvl 9.4 8.5 - 10.5 01/01 [place] CHEM PANEL Potassium Lvl 3.7 3.5 - 5.1 01/01 [place] CHEM PANEL Chloride Lvl 104 95 - 109 01/01 [place] CHEM PANEL Sodium Lvl 140 135 - 145 01/01 [place] CHEM PANEL Glucose Lvl 111 70 - 99 01/01 [place] CHEM PANEL Creatinine Lvl 0.91 0.50 - 07/ MH 1.40 /2017 [place] CHEM PANEL BUN 12 7 - 22 01/01 [place] CHEM PANEL A/G Ratio 0.9 0.7 - 1.6 01/01 [place] CHEM PANEL AGAP 12.7 10.0 - 07/ MH 20.0 /2016 [place] CHEM PANEL Globulin 4.1 2.7 - 4.2 01/01 [place] CHEM PANEL B/C Ratio 13 6 - 25 07/ /2016 [place] HEMATOLOGY Segs 80.5 45.0 - 07 MH 75.0 /2016 [place] HEMATOLOGY Eosinophils 0.3 0.0 - 4.0 01/01 [place] HEMATOLOGY Lymphocytes 13.9 20.0 - 07 MH 40.0 /2016 [place] HEMATOLOGY Monocytes 5.1 2.0 - 12.0 01/01 [place] HEMATOLOGY Plt Morph Normal 01/01 MH (01/01/17 12:16 PM) [place] HEMATOLOGY RBC Morph Normal 01/01 MH (01/01/17 12:16 PM) [place] HEMATOLOGY Basophils # 0.0 0.0 - 0.2 01/01 [place] HEMATOLOGY Eosinophils # 0.1 0.0 - 0.5 01/01 [place] HEMATOLOGY Basophils 0.2 0.0 - 1.0 01/01 [place] HEMATOLOGY Segs-Bands # 13.7 1.5 - 8.1 01/01 [place] HEMATOLOGY Lymphocytes # 2.4 1.0 - 5.5 01/01 [place] HEMATOLOGY Monocytes # 0.9 0.0 - 0.8 01/01 [place] HEMATOLOGY MPV 9.1 7.4 - 10.4 01/01 [place] HEMATOLOGY Platelet 272 133 - 450 01/01 [place] HEMATOLOGY Hct 44.3 36.0 - 01/01 MH 48.0 /2016 [place] HEMATOLOGY MCV 89.6 80.0 - 01/01 MH 98.0 /2016 [place] HEMATOLOGY MCH 29.6 27.0 - 07 MH 31.0 [place] HEMATOLOGY RDW 12.7 11.5 - 07 MH 14.5 /2016 [place] HEMATOLOGY MCHC 33.1 32.0 - 07 MH 36.0 /2016 [place] HEMATOLOGY WBC 17.0 3.7 - 10.4 01/01 [place] HEMATOLOGY Hgb 14.7 12.0 - 01/01 MH 16.0 [place] HEMATOLOGY RBC 4.95 4.20 - 01/01 MH 5.40 /2016 [place] URINE AND UA Protein Negative Negative 01/01 [facility] mg/dL mg/dL [place] URINE AND UA Ketones Negative Negative 01/01 [facility] mg/dL mg/dL [place] URINE AND UA Glucose Negative Negative 01/01 [facility] mg/dL mg/dL [place] URINE AND UA Color Yellow Yellow 01/01 [facility] *NA* /2016 [place] (01/01/17 12:16 PM) [place] URINE AND UA Turbidity Slight Clear 01/01 [facility] *ABN* /2016 [place] (01/01/17 12:16 PM) [place] URINE AND UA pH 6.0 5.0 - 8.0 01/01 STOOL [place] URINE AND UA Spec Grav 1.016 <=1.030 01/01 STOOL [place] URINE AND UA <=1.0 0.1 - 1.0 01/01 [facility] Urobilinogen mg/dL /2016 [place] URINE AND UA RBC 1 0 - 2 01/01 STOOL [place] URINE AND UA WBC 6 0 - 5 01/01 STOOL [place] URINE AND UA Hyal Cast 1 0 - 2 01/01 STOOL [place] URINE AND UA Mucus Few /LPF None Seen 01/01 [facility] /LPF /2016 [place] URINE AND UA Bili Negative Negative 01/01 [facility] *NA* /2016 [place] (01/01/17 12:16 PM) [place] URINE AND UA Blood Negative Negative 01/01 [facility] (01/01/17 12:16 PM) [place] URINE AND UA Leuk Est Trace Negative 01/01 [facility] *ABN* /2016 [place] (01/01/17 12:16 PM) [place] URINE AND UA Nitrite Negative Negative 01/01 [facility] (01/01/17 12:16 PM) [place] URINE AND UA Sq Epi Moderate Few /LPF 01/01 MH STOOL /LPF /2016 [place] URINE AND UA 2.0 0.1 - 1.0 10/09 [facility] Urobilinogen /2016 [place] URINE AND UA Sq Epi Many /LPF Few /LPF 10/09 STOOL [place] URINE AND UA Nitrite Negative Negative 10/09 [facility] (10/09/16 5:21 AM) [place] URINE AND UA WBC 5 0 - 5 10/09 STOOL [place] URINE AND UA Leuk Est Negative Negative 10/09 [facility] (10/09/16 5:21 AM) [place] URINE AND UA Mucus Few /LPF None Seen 10/09 STOOL /LPF /2016 [place] URINE AND UA Spec Grav 1.030 <=1.030 10/09 STOOL [place] URINE AND UA RBC 4 0 - 2 10/09 STOOL [place] URINE AND UA Glucose Negative Negative 10/09 [facility] mg/dL mg/dL [place] URINE AND UA Blood Small Negative 10/09 [facility] *ABN* [place] (10/09/16 5:21 AM) [place] URINE AND UA Bili Negative Negative 10/09 [facility] *NA* [place] (10/09/16 5:21 AM) [place] URINE AND UA Ketones Negative Negative 10/09 [facility] mg/dL mg/dL [place] URINE AND UA Protein 30 mg/dL Negative 10/09 [facility] mg/dL [place] URINE AND UA pH 5.0 5.0 - 8.0 10/09 STOOL [place] URINE AND UA Turbidity Marked Clear 10/09 [facility] *ABN* [facility] (10/09/16 5:21 AM) [place] URINE AND UA Color Dark Yellow Yellow 10/09 [facility] *NA* [place] (10/09/16 5:21 AM) [place] URINE CHEM U Preg Negative Negative 10/09 (10/09/16 5:21 AM) [place] VIRAL - Influ B Negative Negative 10/09 SEROLOGY (10/08/16 9:33 PM) [place] VIRAL - Influ A Negative Negative 10/09 SEROLOGY (10/08/16 9:33 PM) [place] Pathology Reports No Data Provided for This Section Diagnostic Reports Report Value Date Source Renal Stone CT EXAM: CT ABDOMEN/PELVIS WITHOUT CONTRAST (RENAL STONE) 2016 [facility] DATE: 01/01/2017 12:11 PM CDT . CLINICAL INDICATION: Constant left flank pain radiating to the pelvis, vomiting TECHNIQUE: Volumetric acquisition of abdomen from the level of the domes of the diaphragm to the symphysis pubis using 5mm collimation without the use of intravenous or oral contrast as per our renal CT protocol. Axial and coronal images were reviewed. This exam was performed according to our departmental dose-optimization protocol, which includes automated exposure control, adjustment of the mA and/ or kV according to patient size and/or use of iterative reconstruction technique. DLP - 626 mGy-cm COMPARISON: Unavailable FINDINGS: Kidneys: Unremarkable kidneys and ureters Urinary bladder: Unremarkable. GI tract: -- Rectum: Unremarkable. -- Colon: Inflammatory thickening of the distal descending colon syncope sigmoid junction. There is moderate colonic diverticulosis. -- Appendix: Unremarkable. -- Small bowel: Unremarkable. -- Stomach: Unremarkable. -- GE junction: Unremarkable Liver: Unremarkable noncontrast evaluation. Spleen: Unremarkable noncontrast evaluation. Adrenal Glands: Unremarkable Pancreas: Unremarkable noncontrast evaluation Reproductive organs: Unremarkable. Vasculature: Unremarkable noncontrast evaluation Gallbladder/biliary tree: Cholecystectomy Mesentery: Unremarkable. Lymph Nodes: No Lymphadenopathy Skeleton: Unremarkable. Pelvis: Unremarkable Lung bases: Unremarkable . Heart: Unremarkable where visualized. IMPRESSION: 1. Findings most in keeping with acute, uncomplicated descending colon diverticulitis 2. Unremarkable kidneys and ureters Chest 1view DX CLINICAL HISTORY PROVIDED: Cough and fever - 46-year-old female presents with fever and cough. 10/09/2016 [place] : 1970. PROCEDURE: Frontal chest radiograph has been obtained. COMPARISON: No prior chest imaging available. FINDINGS: Cardiac silhouette: Within normal limits. Remaining mediastinal and Yany: Within normal limits. Pulmonary consolidation: None. Pleural effusion: None. Pneumothorax: None. Bones: No acute abnormality. IMPRESSION: 1. No acute cardiopulmonary process. Consultation Notes No Data Provided for This Section Discharge Summaries No Data Provided for This Section History and Physicals No Data Provided for This Section Vital Signs Vital Sign Value Date Comments Source Temperature Oral (F) 98.9 F 01/02/2017 [place] Systolic (mm Hg) 118 01/02/2017 MH [place] Diastolic (mm Hg) 75 01/02/2017 [place] Heart Rate 82 01/02/2017 [place] Respitory Rate 16 01/02/2017 MH [place] Heart Rate 80 01/02/2017 MH [place] Respitory Rate 16 01/02/2017 MH [place] Temperature Oral (F) 97.9 F 01/02/2017 MH [place] Systolic (mm Hg) 93 01/02/2017 MH [place] Diastolic (mm Hg) 60 01/02/2017 [place] Temperature Oral (F) 98.1 F 01/02/2017 MH [place] Respitory Rate 16 01/02/2017 MH [place] Heart Rate 80 01/02/2017 MH [place] Systolic (mm Hg) 96 01/02/2017 [place] Diastolic (mm Hg) 59 01/02/2017 [place] Height 160.02 cm 01/01/2017 [place] BMI Calculated 31.95 01/01/2017 [place] Weight 81.818 01/01/2017 [place] Weight 82.045 01/01/2017 [place] BMI Calculated 32.04 01/01/2017 [place] Height 160.02 cm 01/01/2017 [place] Temperature Oral (F) 100.0 F 10/09/2016 MH [place] Systolic (mm Hg) 115 10/09/2016 MH [place] Diastolic (mm Hg) 89 10/09/2016 [place] Respitory Rate 18 10/09/2016 [place] Heart Rate 99 10/09/2016 MH [place] Systolic (mm Hg) 129 10/09/2016 [place] Diastolic (mm Hg) 99 10/09/2016 [place] Temperature Oral (F) 100.7 F 10/09/2016 [place] Weight 89.148 10/09/2016 [place] Heart Rate 102 10/09/2016 [place] Respitory Rate 18 10/09/2016 [place] Respitory Rate 18 10/09/2016 [place] Heart Rate 99 10/09/2016 [place] Systolic (mm Hg) 115 10/09/2016 MH [place] Diastolic (mm Hg) 62 10/09/2016 [place] Temperature Oral (F) 99.2 F 10/09/2016 [place] Height 160.02 cm 10/09/2016 [place] BMI Calculated 34.9 10/09/2016 [place] Weight 89.364 10/09/2016 [place] Systolic (mm Hg) 110 10/09/2016 MH [place] Diastolic (mm Hg) 65 10/09/2016 [place] Temperature Oral (F) 99.6 F 10/09/2016 [place] Respitory Rate 20 10/09/2016 [place] Heart Rate 109 10/09/2016 [place] Encounters Location Location Encounter Encounter Reason Attending ADM DC Status Source Details Type Number For Provider Date [facility] [id number] Bob 10/09 10/09 LAZ Whittaker [facility]2016 [facility] [place] [facility] [id number] [place] 10/09 10/09 LAZ Hutchinson [facility] [place] [facility] [id number] Casie Devine 01/01 01/02 LAZ Mckenna /2016 [facility] [place] Durani [facility] Procedures Procedure Code Date Perfomer Comments Source Cholecystectomy [id number] [place] Hysterectomy [id number] [place] Assessment and Plan Assessment and Plan Date Source Extracted from:Title: Discharge Summary * 01/02/2017 Clary Crawley Author: Casie Harrison MD Date: 01/02/17 Discharge Plan Discharge Summary Plan Discharge Status: improved. Discharge instructions given: to patient. Discharge disposition: discharge to home self care. Prescriptions: written and given to patient. Course Improving. Education and Follow-up Counseled: patient. Extracted from:Title: Admission H&P * Author: Casie Harrison MD Date: 01/01/17 Impression and Plan 1. Acute diverticulitis. clear liq diet, IV fluids, cipro and flagyl IV. 2. Acute LLQ abdominal pain. 2/2 above. 3. Leukocytosis. repeat labs in AM 4. Tobacco use d/o. counselled Plan of Care No Data Provided for This Section Social History Social History Date Source Social History TypeResponse 01/01/2017 Clary Crawley Substance Abuse Use: None. Alcohol Current, Frequency: 1-2 times per week. Smoking Status Current every day smoker; Type: Cigarettes; Ready to change: No; Concerns about tobacco use in household: No; Exposure to Tobacco Smoke pt smokes; Cigarette Smoking Last 365 Days No; Reg Smoking Cessation Counseling Yes Family History No Data Provided for This Section Advance Directives No Data Provided for This Section Functional Status No Data Provided for This Section
[2019-01-04 17:34] LABS: Absolute Lymphocytes (CBC) 2.8 K/uL (0.7-4.9); Basophils % 0.7 % (0-1.3); Eosinophils % 0.8 % (0-4.4); Hematocrit 47.6 % (36.0-45.0); Lymphocytes % 18.8 % (15.3-44.8); MPV 9.3 fL (7.6-11.3); Monocytes % 5.1 % (3.3-12.3)
[2019-01-04] MEDS ORDERED: NA CHLORIDE 0.9% 1,000 ML ONE (17:39)
[2019-01-04] MEDS ORDERED: MORPHINE 4 MG/ML SYR ONE ×2 (17:39→21:12)
[2019-01-04] MEDS ORDERED: FAMOTIDINE 20 MG/2 ML VIAL IV ONE (17:39)
[2019-01-04] MEDS ORDERED: ONDANSETRON 4 MG/2 ML VIAL ONE ×2 (17:39→21:13)
[2019-01-04 17:53] LABS: ALT/SGPT 33 U/L (12-78); AST/SGOT 19 U/L (15-37); Alkaline Phosphatase 102 U/L (45-117); BUN Blood Urea Nitrogen 13 mg/dL (7-18); Bicarbonate 28 mmol/L (21-32); Bilirubin Direct < 0.1 mg/dL (0-0.2); Bilirubin Total 0.4 mg/dL (0.2-1.0); Glucose Level 131 mg/dL (74-106); Lipase 63 U/L (73-393); Potassium 3.6 mmol/L (3.5-5.1); Protein, Total 8.3 g/dL (6.4-8.2); Sodium Level 140 mmol/L (136-145)
[2019-01-04 18:20] LABS: Urine Bacteria <20 /HPF (<20); Urine Culture Reflex Order NOT NEEDED; Urine RBC <5 /HPF (NONE SEEN)
[2019-01-04 20:10] LABS: Urine Blood NEGATIVE (NEG); Urine Glucose NEGATIVE (NEG); Urine Protein NEGATIVE (NEG); Urine Specific Gravity <1.005 (1.005-1.030)
--- NOTE | 2019-01-04 20:24 | RAD REPORT ---
EXAM DESCRIPTION: CT - Abdomen Pelvis W Contrast - 01/04/2019 8:14 pm CLINICAL HISTORY: Abdominal pain. COMPARISON: March 2018 TECHNIQUE: Computed axial tomography of the abdomen and pelvis was obtained. 100 cc Isovue-300 is ad ministered intravenously. Oral contrast was given. All CT scans are performed using dose optimization technique as appropriate and may include automated exposure control or mA/KV adjustment according to patient size. FINDINGS: Cholecystectomy. Mild fatty liver Spleen, pancreas, adrenals and kidneys appear unremarkable. The appendix is normal caliber. Diverticula stem from the colon. Thickening of the wall of the sigmoid colon is present. Soft tissue extends from the sigmoid to the bladder. 12 millimeter low-density area is present containing an air bubble. This is compatible with a small abscess. IMPRESSION: Sigmoid diverticulitis with small abscess abutting the bladder.
--- NOTE | 2019-01-04 20:48 | EDPHYS ---
Physician Documentation [facility] Name: Catherine Rockwell Age: 48 yrs Sex: Female : 1970 Arrival Date: 01/04/2019 Time: 16:22 Bed 28 Private MD: Unknown, Unknown ED Physician Anselmo Osman HPI: 01/04 17:20 This 48 yrs old Female presents to ER via Ambulatory with complaints of cp Abdominal Cramping, Abdominal Pain, Diarrhea. 17:20 The patient presents with abdominal pain left side of abdomen. cp 17:20 Onset: The symptoms/episode began/occurred this morning. Associated signs and symptoms: cp Pertinent positives: nausea, vomiting, and diarrhea, Pertinent negatives: blood in stools, constipation, vomiting blood. The symptoms are described as constant. Modifying factors: the symptoms are aggravated by movement, pressure. Severity of pain: in the emergency department the pain is unchanged despite home interventions. 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 - Social history:: Smoking status: Patient/guardian denies using tobacco. - Ebola Screening: : No symptoms or risks identified at this time. ROS: 17:30 Constitutional: Negative for body aches, chills, fever, poor PO intake. cp 17:30 Eyes: Negative for injury, pain, redness, and discharge. cp 17:30 ENT: Negative for drainage from ear(s), ear pain, sore throat, difficulty swallowing, difficulty handling secretions. 17:30 Cardiovascular: Negative for chest pain, palpitations. 17:30 Respiratory: Negative for cough, shortness of breath, wheezing. 17:30 Abdomen/GI: Positive for abdominal pain, nausea, vomiting, and diarrhea, Negative for constipation, hematemesis, black/tarry stool, rectal bleeding. 17:30 : Negative for urinary symptoms. 17:30 Neuro: Negative for altered mental status, headache, weakness. 17:30 All other systems are negative. Exam: 17:35 Constitutional: The patient appears in no acute distress, alert, awake, cp non-diaphoretic, non-toxic, well developed, well nourished, uncomfortable. 17:35 Head/Face: Normocephalic, atraumatic. cp 17:35 Eyes: Periorbital structures: appear normal, Conjunctiva: normal, no exudate, no injection, Sclera: no appreciated abnormality, Lids and lashes: appear normal, bilaterally. 17:35 ENT: External ear(s): are unremarkable, Nose: is normal, Mouth: Lips: moist, Oral mucosa: pink and intact, moist, Posterior pharynx: is normal, airway is patent, no erythema, no exudate. 17:35 Chest/axilla: Inspection: normal, Palpation: is normal, no crepitus, no tenderness. 17:35 Cardiovascular: Rate: normal, Rhythm: regular. 17:35 Respiratory: the patient does not display signs of respiratory distress, Respirations: normal, no use of accessory muscles, no retractions, no splinting, no tachypnea, labored breathing, is not present, Breath sounds: are clear throughout, no decreased breath sounds, no stridor, no wheezing. 17:35 Abdomen/GI: Inspection: abdomen appears normal, Bowel sounds: active, all quadrants, Palpation: soft, in all quadrants, moderate abdominal tenderness, in the anterior aspect of left lateral abdomen, left upper quadrant and left lower quadrant, rebound tenderness, is not appreciated, voluntary guarding. 17:35 Back: CVA tenderness, is absent. Vital Signs: 16:44 BP 148 / 79; Pulse 107; Resp 18 S; Temp 98.4(TE); Pulse Ox 100% on R/A; Height 5 ft. 3 aa5 in. (160.02 cm) (R); Pain 10/10; 16:48 Weight 95.71 kg (M); aa5 17:30 BP 124 / 84; Pulse 89; Resp 17 S; Pulse Ox 100% on R/A; ca1 17:47 BP 124 / 75; Pulse 94; Resp 15; Temp 98.3; Pulse Ox 97% ; rv 18:07 Pain 3/10; rv 19:18 BP 116 / 82; Pulse 92; Resp 16; Pulse Ox 100% on R/A; jb4 20:00 BP 127 / 77; Pulse 88; Resp 18; Pulse Ox 96% on R/A; jb4 21:47 BP 122 / 61; Pulse 94; Resp 18; Pulse Ox 95% on R/A; jb4 22:50 BP 103 / 78; Pulse 76; Resp 16; Temp 98.8(O); Pulse Ox 94% on R/A; jb4 16:48 Body Mass Index 37.38 (95.71 kg, 160.02 cm) aa5 MDM: 16:53 Patient medically screened. edel 18:00 Differential diagnosis: bowel obstruction, cholecystitis, Cholelithiasis, cp diverticulitis, non-specific abd pain, pancreatitis. 20:43 Physician consultation: Benitez Molina MD was contacted at 20:43, regarding consult, cp patient's condition, would like admission per Dr. Rayo Roth MD. 20:45 Data reviewed: vital signs, nurses notes, lab test result(s), radiologic studies, CT cp scan. 20:46 Physician consultation: Rayo Roth MD was called at 20:46, was contacted at 20:46, cp regarding admission, to the medical/surgical unit. patient's condition. 01/04 17:14 Order name: Basic Metabolic Panel 01/04 17:14 Order name: CBC with Diff; Complete Time: 17:57 01/04 17:57 Interpretation: Normal except: WBC 14.8; RBC 5.30; HGB 15.4; HCT 47.6; MANJU% 74.6; NEUT cp A 11.0. 01/04 17:14 Order name: Creatinine for Radiology; Complete Time: 17:57 01/04 17:14 Order name: Hepatic Function; Complete Time: 17:57 01/04 18:46 Interpretation: Normal except: TP 8.3; GLOB 4.3; A/G 0.9. / 17:14 Order name: Lipase; Complete Time: 17:57 cp 01/04 17:14 Order name: Urine Microscopic Only; Complete Time: 18:46 01/04 18:46 Interpretation: Reviewed. 01/04 17:14 Order name: CT Abd/Pelvis - PO and IV Contrast; Complete Time: 20:30 /04 20:45 Interpretation: Report reviewed. 01/04 17:14 Order name: Basic Metabolic Panel; Complete Time: 17:57 EDMS 01/04 17:57 Interpretation: Normal except: GLUC 131; GFR 61. cp 01/04 17:35 Order name: Urine Dipstick--Ancillary (enter results) ag 01/04 17:35 Order name: Urine Dipstick-Ancillary EDMS 01/04 22:19 Order name: Abdomen Acute Series; Complete Time: 23:17 EDMS 01/04 17:14 Order name: IV Saline Lock; Complete Time: 17:29 cp 01/04 17:14 Order name: Labs collected and sent; Complete Time: 17:29 cp 01/04 17:14 Order name: Urine Dipstick-Ancillary (obtain specimen); Complete Time: 17:29 cp 01/04 17:14 Order name: Urine Test (obtain specimen); Complete Time: 17:29 cp 01/04 20:34 Order name: NPO; Complete Time: 20:37 cp 01/04 22:18 Order name: CONS Physician Consult EDGA 01/04 22:19 Order name: NPO EDMS Administered Medications: 17:20 Drug: Pepcid 20 mg Route: IVP; Site: left antecubital; rv 18:05 Follow up: Response: No adverse reaction rv 17:20 Drug: NS 0.9% 1000 ml Route: IV; Rate: 1 bolus; Site: left antecubital; rv 19:30 Follow up: Response: No adverse reaction; IV Status: Completed infusion; IV Intake: jb4 1000ml 17:22 Drug: Zofran 4 mg Route: IVP; Site: left antecubital; rv 18:07 Follow up: Response: Nausea is decreased rv 17:26 Drug: morphine 4 mg Route: IVP; Site: left antecubital; rv 18:07 Follow up: Pain 3/10 Adult; Response: Marked relief of symptoms; Pain is decreased rv 20:50 Drug: Ciprofloxacin 400 mg Volume: 200 ml; Route: IVPB; Infused Over: 60 mins; Site: [facility] left antecubital; 21:50 Follow up: Response: No adverse reaction; IV Status: Completed infusion; IV Intake: jb4 200ml 20:51 Drug: metroNIDAZOLE 500 mg Volume: 100 ml; Route: IVPB; Infused Over: 30 mins; Site: [facility] left antecubital; 21:21 Follow up: Response: No adverse reaction; IV Status: Completed infusion; IV Intake: jb4 100ml 20:55 Drug: Zofran 4 mg Route: IVP; Site: left antecubital; jb4 21:25 Follow up: Response: No adverse reaction; Nausea is decreased jb4 21:00 Drug: morphine 4 mg Route: IVP; Site: left antecubital; jb4 21:30 Follow up: Response: No adverse reaction; Pain is decreased jb4 Disposition: 01/04/19 20:47 Hospitalization ordered by Rayo Roth for Inpatient Admission. Preliminary diagnosis is Diverticulitis of large intestine with perforation and abscess without bleeding - Sigmoid. - Bed requested for Telemetry/MedSurg (Inpatient). - Status is Inpatient Admission. jb4 - Condition is Stable. - Problem is new. - Symptoms have improved. UTI on Admission? No Addendum: 01/10/2019 16:48 Co-signature as Attending Physician, Anselmo Osman MD I agree with the assessment and c streeter plan of care. Signatures: Dispatcher [employer] EDAnselmo Monson MD MD cha Calderon, Audri, RN RN aa5 Anselmo Wong PA PA Jackie Delgadillo RN RN cg Vijay Oh, TESS RN jb4 Alfred Diaz RN RN rv Corrections: (The following items were deleted from the chart) 01/04 22:21 20:47 Hospitalization Ordered by Rayo Roth MD for Inpatient Admission. Preliminary cg diagnosis is Diverticulitis of large intestine with perforation and abscess without bleeding - Sigmoid. Bed requested for Telemetry/MedSurg (Inpatient). Status is Inpatient Admission. Condition is Stable. Problem is new. Symptoms have improved. UTI on Admission? No. cp 23:36 22:21 01/04/2019 20:47 Hospitalization Ordered by Rayo Roth MD for Inpatient jb4 Admission. Preliminary diagnosis is Diverticulitis of large intestine with perforation and abscess without bleeding - Sigmoid. Bed requested for Telemetry/MedSurg (Inpatient). Status is Inpatient Admission. Condition is Stable. Problem is new. Symptoms have improved. UTI on Admission? No. cg
--- NOTE | 2019-01-04 20:48 | ER ---
Nurse's Notes [facility] Name: Catherine Rockwell Age: 48 yrs Sex: Female : 1970 Arrival Date: 01/04/2019 Time: 16:22 Bed 28 Private MD: Unknown, Unknown Diagnosis: Diverticulitis of large intestine with perforation and abscess without bleeding-Sigmoid Presentation: 01/04 16:41 Presenting complaint: Patient states: generalized abd pain and nausea/vomiting/diarrhea aa5 that began this morning. Transition of care: patient was not received from another setting of care. Onset of symptoms was January 04, 2019. Risk Assessment: Do you want to hurt yourself or someone else? Patient reports no desire to harm self or others. Initial Sepsis Screen: Does the patient meet any 2 criteria? No. Patient's initial sepsis screen is negative. Does the patient have a suspected source of infection? No. Patient's initial sepsis screen is negative. Care prior to arrival: None. 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 - Social history:: Smoking status: Patient/guardian denies using tobacco. - Ebola Screening: : No symptoms or risks identified at this time. Screenin:58 Abuse screen: Denies threats or abuse. Denies injuries from another. Nutritional rv screening: No deficits noted. Tuberculosis screening: No symptoms or risk factors identified. Fall Risk None identified. Assessment: 16:58 General: Appears in no apparent distress. comfortable, Behavior is calm, cooperative. rv Pain: Complains of pain in abdomen. Neuro: Level of Consciousness is awake, alert, obeys commands, Oriented to person, place, time, situation. Cardiovascular: Patient's skin is warm and dry. Respiratory: Airway is patent. GI: Bowel sounds present X 4 quads. Abd is soft and non tender X 4 quads. : No signs and/or symptoms were reported regarding the genitourinary system. EENT: No signs and/or symptoms were reported regarding the EENT system. Derm: Skin is intact. Musculoskeletal: No signs and/or symptoms reported regarding the musculoskeletal system. 17:48 Reassessment: Patient appears in no apparent distress at this time. Patient and/or rv family updated on plan of care and expected duration. Pain level reassessed. Patient is alert, oriented x 3, equal unlabored respirations, skin warm/dry/pink. 17:50 Reassessment: finished the contrast at 1735. rv 19:18 Reassessment: Patient appears in no apparent distress at this time. Patient and/or jb4 family updated on plan of care and expected duration. Pain level reassessed. Patient is alert, oriented x 3, equal unlabored respirations, skin warm/dry/pink. 20:24 Reassessment: Patient appears in no apparent distress at this time. Patient and/or jb4 family updated on plan of care and expected duration. Pain level reassessed. Patient is alert, oriented x 3, equal unlabored respirations, skin warm/dry/pink. 21:47 Reassessment: Patient appears in no apparent distress at this time. Patient and/or jb4 family updated on plan of care and expected duration. Pain level reassessed. Patient is alert, oriented x 3, equal unlabored respirations, skin warm/dry/pink. Patient states feeling better. 22:50 Reassessment: Patient appears in no apparent distress at this time. Patient and/or jb4 family updated on plan of care and expected duration. Pain level reassessed. Patient is alert, oriented x 3, equal unlabored respirations, skin warm/dry/pink. Patient states feeling better. 23:32 Reassessment: Patient appears in no apparent distress at this time. Patient and/or jb4 family updated on plan of care and expected duration. Pain level reassessed. Patient is alert, oriented x 3, equal unlabored respirations, skin warm/dry/pink. Pt transferred upstairs via wheelchair, belongings with patient. Vital Signs: 16:44 BP 148 / 79; Pulse 107; Resp 18 S; Temp 98.4(TE); Pulse Ox 100% on R/A; Height 5 ft. 3 aa5 in. (160.02 cm) (R); Pain 10/10; 16:48 Weight 95.71 kg (M); aa5 17:30 BP 124 / 84; Pulse 89; Resp 17 S; Pulse Ox 100% on R/A; ca1 17:47 BP 124 / 75; Pulse 94; Resp 15; Temp 98.3; Pulse Ox 97% ; rv 18:07 Pain 3/10; rv 19:18 BP 116 / 82; Pulse 92; Resp 16; Pulse Ox 100% on R/A; jb4 20:00 BP 127 / 77; Pulse 88; Resp 18; Pulse Ox 96% on R/A; jb4 21:47 BP 122 / 61; Pulse 94; Resp 18; Pulse Ox 95% on R/A; jb4 22:50 BP 103 / 78; Pulse 76; Resp 16; Temp 98.8(O); Pulse Ox 94% on R/A; jb4 16:48 Body Mass Index 37.38 (95.71 kg, 160.02 cm) aa5 ED Course: 16:22 Patient arrived in ED. ag5 16:23 Unknown, Unknown is Private Physician. ag5 16:41 Anselmo Wong PA is PHCP. cp 16:41 Anselmo Osman MD is Attending Physician. cp 16:41 Arm band placed on. aa5 16:43 Triage completed. aa5 16:46 Alfred Diaz, TESS is Primary Nurse. rv 16:58 Inserted saline lock: 20 gauge in left antecubital area, using aseptic technique. Blood rv collected. 16:59 Patient has correct armband on for positive identification. Bed in low position. Call rv light in reach. Side rails up X 1. Pulse ox on. NIBP on. 17:36 Basic Metabolic Panel Sent. rv 19:[address] via wheelchair. nj 19:36 CT completed. Patient tolerated procedure well. Patient moved back from CT. nj 19:36 CT Abd/Pelvis - PO and IV Contrast In Process Unspecified. EDMS 20:46 Rayo Roth MD is Hospitalizing Provider. cp 22:37 Abdomen Acute Series In Process Unspecified. EDMS 23:32 No provider procedures requiring assistance completed. Patient admitted, IV remains in jb4 place. Administered Medications: 17:20 Drug: Pepcid 20 mg Route: IVP; Site: left antecubital; rv 18:05 Follow up: Response: No adverse reaction rv 17:20 Drug: NS 0.9% 1000 ml Route: IV; Rate: 1 bolus; Site: left antecubital; rv 19:30 Follow up: Response: No adverse reaction; IV Status: Completed infusion; IV Intake: jb4 1000ml 17:22 Drug: Zofran 4 mg Route: IVP; Site: left antecubital; rv 18:07 Follow up: Response: Nausea is decreased rv 17:26 Drug: morphine 4 mg Route: IVP; Site: left antecubital; rv 18:07 Follow up: Pain 310 Adult; Response: Marked relief of symptoms; Pain is decreased rv 20:50 Drug: Ciprofloxacin 400 mg Volume: 200 ml; Route: IVPB; Infused Over: 60 mins; Site: [facility] left antecubital; 21:50 Follow up: Response: No adverse reaction; IV Status: Completed infusion; IV Intake: jb4 200ml 20:51 Drug: metroNIDAZOLE 500 mg Volume: 100 ml; Route: IVPB; Infused Over: 30 mins; Site: [facility] left antecubital; 21:21 Follow up: Response: No adverse reaction; IV Status: Completed infusion; IV Intake: jb4 100ml 20:55 Drug: Zofran 4 mg Route: IVP; Site: left antecubital; jb4 21:25 Follow up: Response: No adverse reaction; Nausea is decreased jb4 21:00 Drug: morphine 4 mg Route: IVP; Site: left antecubital; jb4 21:30 Follow up: Response: No adverse reaction; Pain is decreased jb4 Intake: 19:30 IV: 1000ml; Total: 1000ml. jb4 21:21 IV: 100ml; Total: 1100ml. jb4 21:50 IV: 200ml; Total: 1300ml. jb4 Outcome: 20:47 Decision to Hospitalize by Provider. cp 23:32 Admitted to Tele accompanied by nurse, via wheelchair, room 415, with chart, Report jb4 called to TESS billings 23:32 Condition: stable 23:32 Discharge instructions given to patient, Instructed on the need for admit, Demonstrated understanding of instructions. 23:36 Patient left the ED. jb4 Signatures: Dispatcher [employer] EDPA Nneka Hunter RN RN aa5 Anselmo Wong PA PA Vijay Luque RN RN jb4 Michael Hicks Ronaldo, RN RN La Espinoza RN RN ca1 Joseph Dodge ag5 Corrections: (The following items were deleted from the chart) 23:36 23:32 Reassessment: Patient appears in no apparent distress at this time. Patient jb4 and/or family updated on plan of care and expected duration. Pain level reassessed. Patient is alert, oriented x 3, equal unlabored respirations, skin warm/dry/pink. Pt transferred upstairs via strecher, belongings with patient. jb4
[2019-01-04] MEDS ORDERED: CIPROFLOXACIN 400mg IV 400 MG/200 ML BAG IV ONE (20:55)
[2019-01-04] MEDS ORDERED: METRONIDAZOLE 500mg IVPB 500 MG/100 ML BAG IV ONE (20:55)
[2019-01-04] MEDS ORDERED: ACETAMINOPHEN 500 MG TAB PO PRN (22:08)
--- NOTE | 2019-01-04 23:06 | RAD REPORT ---
EXAM DESCRIPTION: RAD - Abdomen Acute Series - 01/04/2019 10:38 pm CLINICAL HISTORY: Abdominal pain FINDINGS: Free air is not seen beneath the diaphragm. Lungs appear clear. Diverticula stem from the colon
[2019-01-04] MEDS ORDERED: KCL 20 MEQ/100 mL IVPB 20 MEQ/100 ML BAG IV SCH (23:45)
[2019-01-05] MEDS: NA CHLORIDE 0.9% 1,000 ML IV SCH ×3 (00:06→23:48)
[2019-01-05] MEDS: Levofloxacin500mg IV 500 MG/100 ML BAG IV SCH ×2 (00:37→23:48)
[2019-01-05] MEDS: HYDROMORPHONE HCL 1 MG/ML INJ IV PRN ×6 (00:43→22:05)
[2019-01-05] MEDS: ONDANSETRON 4 MG/2 ML VIAL IV PRN ×4 (03:08→22:05)
[2019-01-05] MEDS: METRONIDAZOLE 500mg IVPB 500 MG/100 ML BAG IV SCH ×4 (03:08→23:48)
[2019-01-05 06:30] LABS: Absolute Lymphocytes (CBC) 2.4 K/uL (0.7-4.9); Basophils % 0.4 % (0-1.3); Eosinophils % 1.8 % (0-4.4); Hematocrit 41.2 % (36.0-45.0); Lymphocytes % 23.6 % (15.3-44.8); MPV 9.3 fL (7.6-11.3); Monocytes % 7.2 % (3.3-12.3); RBC Red Blood Cell Count 4.62 M/uL (3.86-4.86)
[2019-01-05 06:45] LABS: Albumin 3.3 g/dL (3.4-5.0); Bilirubin Total 0.8 mg/dL (0.2-1.0); Magnesium 1.8 mg/dL (1.8-2.4); Phosphorus 3.7 mg/dL (2.5-4.9); Potassium 3.9 mmol/L (3.5-5.1)
[2019-01-05] MEDS ORDERED: KCL 20 MEQ/100 mL IVPB 20 MEQ/100 ML BAG IV SCH (08:00)
--- NOTE | 2019-01-05 08:24 | P.HP ---
Date of Service: 01/04/19 [id number]
--- NOTE | 2019-01-05 09:22 | HP ---
Date of Admission: 01/04/2019 Reason For Admission: 1.Abdominal pain. 2.The patient with sigmoid colitis status post perforation. History Of Present Illness: This is a 48-year-old female, who has a history of diverticulosis, who s tarted having significant abdominal pain after cooking breakfast. Pain was diffuse. She said when s he had her prior episode of diverticulitis, she had pain in one area of her left lower quadrant. How ever, this time the pain was all over her abdomen. Her wanted her to come into the hospital right away, but she wanted to wait and see if it would improve. However, her abdominal pain was not improving, so she came into the emergency room for further evaluation. In the ER, she had a CT of th e abdomen and pelvis, which revealed a perforated sigmoid diverticulum. She had a small abscess, whi ch measured about 12 mm. She will be admitted to the hospital for IV antibiotic treatment and surgic al evaluation. The patient will need inpatient hospitalization to get treated for this perforated si gmoid colon. We will discuss with Surgery regarding long-term plan of care. Review of Systems: A 10-point review of systems is otherwise unremarkable. Past Medical History: Denies any significant medical issues. Past Surgical History: Hysterectomy, bilateral tubal ligation, cholecystectomy, ankle surgery. Allergies: NO KNOWN DRUG ALLERGIES. Social History: She does smoke nor does she drink or do any drugs. Home Medications: Denies any home medications. Family History: Noncontributory. Physical Examination: VITAL SIGNS: The patient has a temp of 98.4, heart rate was 107, respirations 18, blood pressure 150 /80, saturating 100%, pain is 10/10. General: The patient is lying in bed, comfortable, no distress. Awake, alert, oriented to person, p lace, and time. HEENT: Normocephalic, atraumatic. Pupils are equal and reactive to light. Extraocular muscles inta ct. There is no JVP. No bruits. Oropharynx pink, moist. No lymphadenopathy. No thyromegaly. TMs normal. Cardiovascular: Regular rate and rhythm. No murmur. Lungs: Clear bilaterally. Abdomen: Soft, tender in the left lower quadrant. No rebound. No guarding. Bowel sounds positive. Extremities: No clubbing, no cyanosis, no edema. Neurologic: Cranial nerves 2 through 12 intact. Motor is 5/5. Sensation intact to light touch. Skin: No deformities. No lymphadenopathy noted on physical exam. Laboratory Data: Labs have been reviewed. Assessment: Perforated sigmoid diverticulum with diverticulitis and abscess formation. Plan: 1.We will continue with IV antibiotic therapy. 2.Continue with IV hydration. 3.General SURGERY consultation. 4.Pain control. 5.Repeat abdominal films in the morning. 6.GI and DVT prophylaxis. FADY Voice ID: [id number]
--- NOTE | 2019-01-05 09:26 | P.PN ---
Subjective Date of Service: 01/05/19 Primary Care Provider: Dr. Luz Chief Complaint: Abdominal pain Subjective: Other (Abdominal pain improved with medication. Some diarrhea noted today.) Physical Examination - Vital Signs Temperature: 97.1 F Blood Pressure: 103/63 Pulse: 75 Respirations: 16 Pulse Ox (%): 98 - Physical Exam General: Alert, In no apparent distress, Oriented x3, Cooperative HEENT: Atraumatic Neck: Supple Respiratory: Clear to auscultation bilaterally, Normal air movement Cardiovascular: Normal pulses, Regular rate/rhythm Gastrointestinal: Hypoactive, Soft and benign, Non-distended, No masses, No rebound, No guarding, Tenderness (Pain to the lower quad) Integumentary: No tenderness/swelling, No erythema, No warmth, No cyanosis Neurological: Normal speech, Normal strength at 5/5 x4 extr, Normal tone, Normal affect - Studies Laboratory Data (last 24 hrs) 01/04/19 16:55: Creatinine 0.93 01/04/19 16:55: WBC 14.8 H, Hgb 15.4 H, Hct 47.6 H, Plt Count 287 01/04/19 16:55: Sodium 140, Potassium 3.6, BUN 13, Creatinine 0.98, Glucose 131 H, Total Bilirubin 0.4, AST 19, ALT 33, Alkaline Phosphatase 102, Lipase 63 L Medications List Reviewed: Yes Assessment & Plan Discharge Plan: Home Plan to discharge in: Greater than 2 days Physician Review Additional Text: Impression: Abdominal pain secondary to sigmoid diverticulitis with small abscess with history of diverticulitis Plan: Abdominal pain secondary to sigmoid diverticulitis with small abscess with history of diverticulitis: Continue with IV antibiotic therapy and IV fluids. Will continue with DVT prophylaxis. Will provide incentive spirometer. Continue with medication for nausea and pain. Case discussed with surgery. Will continue to monitor closely. Will keep the patient NPO for at least 24-48 hr. Will consider advancement of diet once significantly improved. Will consult infectious disease for further recommendation. Patient may require long -term IV antibiotic therapy. Surgical intervention will likely be required but hopefully this can be done as an outpatient if clinically improved. Await further recommendations from surgery and infectious disease. Time Spent Managing Pts Care (In Minutes): 55
--- NOTE | 2019-01-05 17:04 | CON ---
History Of Present Illness: The patient is a 48-year-old female I was consulted for colitis and abdo flako abscess. The patient is being followed by surgical team. The patient denies any headache. Co ntinued to have nausea. No vomiting. Also had diarrhea. The patient was initially admitted for sig moid colitis with status post perforation with abscess formation. The patient is continuing to have some abdominal discomfort also, but feels better now that she is on IV antibiotic. Past Medical History: None. Past Surgical History: Hysterectomy, bilateral tubal ligation, cholecystectomy, ankle surgery. Social History: Nonsmoker. Occasional drinker, social drinking. Family History: Noncontributory. Medications: Tylenol, Lovenox, Dilaudid, Levaquin, Flagyl. Allergies: NO KNOWN ALLERGIES. Review of Systems: A 10-point review was performed. Physical Examination: General: This is a 48-year-old female, lying in bed, not in any acute cardiopulmonary distress. Vital Signs: Temperature 97, pulse 81, respirations 17, blood pressure 107/66. HEENT: Unremarkable. Neck: Supple. Lungs: Clear to auscultation. Heart: S1, S2. Regular. Abdomen: Bowel sounds present. Tenderness in upper quadrant. EXTREMITIES: No edema. Laboratory Data: Shows WBC 10.3, down from 14.8, hemoglobin 13.8, platelets 257. Sodium 142, potass ium 3.9, chloride 108, bicarb 27, BUN 11, creatinine 0.93, glucose 125. Micro data; No blood culture s done. Stool cultures are pending. CT scan of the abdomen shows sigmoid diverticulitis with small abscess abutting the bladder. Assessment And Plan: Abdominal pain secondary to sigmoid diverticulitis with small abscess; leukocyt osis, improving on Levaquin and Flagyl. Continue current antibiotic for a total of 2 weeks. We will follow the patient as needed. Thank you for consult. OLIVA/MODL Voice ID: [id number] Report ID: [id number]
[2019-01-05] MEDS: ENOXAPARIN 30 MG/0.3 ML SQ SCH (17:37)
--- NOTE | 2019-01-05 18:49 | CON ---
Date of Consultation: 01/05/2019 Diagnosis: Diverticulitis. History Of Present Illness: This is a case of a 48-year-old patient, who comes with abdominal pain f or at least 3 days' duration associated with bloating, vomiting, and nausea. She denies any prior ep isodes. Denies any recent travelling out of the country. Denies any family members sick at home. S he denies any dysuria, hematuria, hematochezia, or melena. The patient has no previous colonoscopies . Social History: She does not smoke. She does not drink alcohol. No drugs. Past Surgical History: Hysterectomy, cholecystectomy, ankle surgery, and bilateral tubal ligation. Medications: None. Allergies: NONE. Family History: Noncontributory. Review of Systems: Ten points otherwise unremarkable. Physical Examination: General: The patient is awake and alert. HEENT: Pupils are equal and reactive, anicteric. Neck: Supple. Chest: Clear. Abdomen: Soft and depressible. There is left lower quadrant tenderness with guarding. No rebound. Pelvic: Deferred. Rectal: Deferred. Extremities: Good capillary refill. Laboratory Data: Blood work shows WBC count of 14.8, hemoglobin 15.4. Potassium 3.9. CAT scan of a bdomen and pelvis interpreted by Dr. Weaver as sigmoid diverticulitis small abscess. No free air in the abdomen. Assessment: This is a 48-year-old patient with sigmoid diverticulitis, possible small abscess, so we are going to keep the patient n.p.o., on IV fluid. We explained to her the options of emergent lapa rotomy, possible resection, possible ostomy. Obviously she preferred conservative treatme nt with antibiotics and n.p.o. for several days and continue accordingly. She understand that even t negra she survives this event or she does not have any surgery during this event, she is still going to be evaluated for possible elective resection. She was advised to come to our office when she gets discharged. Over the weekend, Dr. Knight will be following this patient. The patient understands. DAVID/MOHAMUD Voice ID: [id number] Report ID: [id number]
[2019-01-06] MEDS: HYDROMORPHONE HCL 1 MG/ML INJ IV PRN ×3 (02:28→21:48)
[2019-01-06] MEDS: NA CHLORIDE 0.9% 1,000 ML IV SCH ×2 (04:39→17:31)
[2019-01-06] MEDS: ONDANSETRON 4 MG/2 ML VIAL IV PRN ×3 (05:10→18:20)
[2019-01-06] MEDS: METRONIDAZOLE 500mg IVPB 500 MG/100 ML BAG IV SCH ×3 (05:10→17:32)
[2019-01-06 06:02] LABS: Absolute Lymphocytes (CBC) 2.7 K/uL (0.7-4.9); Basophils % 0.5 % (0-1.3); Eosinophils % 0.9 % (0-4.4); Hematocrit 39.9 % (36.0-45.0); MPV 9.3 fL (7.6-11.3); Monocytes % 6.2 % (3.3-12.3); RBC Red Blood Cell Count 4.49 M/uL (3.86-4.86)
[2019-01-06 06:24] LABS: Magnesium 1.8 mg/dL (1.8-2.4); Potassium 3.7 mmol/L (3.5-5.1)
[2019-01-06] MEDS ORDERED: MAGNESIUM SULFATE 1 gm IVPB 1 GM/100 ML BAG IV ONE (09:00)
[2019-01-06] MEDS ORDERED: KCL 20 MEQ/100 mL IVPB 20 MEQ/100 ML BAG IV SCH (09:00)
--- NOTE | 2019-01-06 09:53 | P.PN ---
Subjective Date of Service: 01/06/19 Primary Care Provider: Dr. Luz Chief Complaint: Abdominal pain Subjective: Improving (Patient is pain free, having bowel function, no nausea) Physical Examination - Vital Signs Temperature: 97.1 F Blood Pressure: 107/74 Pulse: 86 Respirations: 18 Pulse Ox (%): 97 - Physical Exam General: Alert, In no apparent distress, Cooperative Gastrointestinal: Soft and benign, Non-distended, No ascites, No tenderness, No masses, No rebound, No guarding - Studies Medications List Reviewed: Yes Assessment And Plan - Current Problems (Diagnosis) (1) Diverticulitis Onset Date: 03/14/18 Current Visit: No Status: Acute Plan: - start clear liquids, advance to soft if tolerated - 2 weeks of antibiotics - colonoscopy after discharge - serial exams Physician Review Additional Text: Impression: Abdominal pain secondary to sigmoid diverticulitis with small abscess with history of diverticulitis Plan: Abdominal pain secondary to sigmoid diverticulitis with small abscess with history of diverticulitis: Continue with IV antibiotic therapy and IV fluids. Will continue with DVT prophylaxis. Will provide incentive spirometer. Continue with medication for nausea and pain. Case discussed with surgery. Will continue to monitor closely. Will keep the patient NPO for at least 24-48 hr. Will consider advancement of diet once significantly improved. Will consult infectious disease for further recommendation. Patient may require long -term IV antibiotic therapy. Surgical intervention will likely be required but hopefully this can be done as an outpatient if clinically improved. Await further recommendations from surgery and infectious disease.
[2019-01-06] MEDS ORDERED: TRAMADOL HCL 50 MG TAB PO PRN (10:17)
[2019-01-06] MEDS ORDERED: HYDROCODONE/APAP 7.5/325 MG TAB PO PRN (10:18)
--- NOTE | 2019-01-06 10:20 | P.PN ---
Subjective Date of Service: 01/06/19 Primary Care Provider: Dr. Luz Chief Complaint: Abdominal pain Subjective: Improving, Doing well Physical Examination - Vital Signs Temperature: 97.1 F Blood Pressure: 107/74 Pulse: 86 Respirations: 18 Pulse Ox (%): 97 - Physical Exam General: Alert, In no apparent distress, Oriented x3, Cooperative HEENT: Atraumatic Neck: Supple Respiratory: Clear to auscultation bilaterally, Normal air movement Cardiovascular: Normal pulses, Regular rate/rhythm Gastrointestinal: Normal bowel sounds, Soft and benign, Non-distended, No tenderness, No masses, No rebound, No guarding Musculoskeletal: No erythema, No tenderness, No warmth Integumentary: No tenderness/swelling, No erythema, No warmth, No cyanosis Neurological: Normal speech, Normal strength at 5/5 x4 extr, Normal tone, Normal affect - Studies Medications List Reviewed: Yes Assessment & Plan Discharge Plan: Home Plan to discharge in: 24 Hours Physician Review Additional Text: Impression: Abdominal pain secondary to sigmoid diverticulitis with small abscess with history of diverticulitis Plan: Abdominal pain secondary to sigmoid diverticulitis with small abscess with history of diverticulitis: Continue with IV antibiotic therapy and IV fluids. Patient without nausea, vomiting and abdominal pain. Case discussed with surgery. Will start clear liquid diet and advanced to GI soft as tolerated. Likely discharge in the next 24 hr if clinically improved. Will continue to reassess. Patient will require antibiotic therapy for at least 2 weeks. Time Spent Managing Pts Care (In Minutes): 55
[2019-01-06] MEDS: ENOXAPARIN 30 MG/0.3 ML SQ SCH (17:32)
[2019-01-07] MEDS: Levofloxacin500mg IV 500 MG/100 ML BAG IV SCH (00:30)
[2019-01-07] MEDS: NA CHLORIDE 0.9% 1,000 ML IV SCH ×2 (06:32→11:00)
[2019-01-07] MEDS: METRONIDAZOLE 500mg IVPB 500 MG/100 ML BAG IV SCH ×3 (06:32→11:28)
[2019-01-07 06:50] LABS: Absolute Lymphocytes (CBC) 1.5 K/uL (0.7-4.9); Basophils % 0.3 % (0-1.3); Eosinophils % 0.6 % (0-4.4); Hematocrit 38.9 % (36.0-45.0); Lymphocytes % 13.5 % (15.3-44.8); MPV 9.1 fL (7.6-11.3); Monocytes % 6.7 % (3.3-12.3); RBC Red Blood Cell Count 4.43 M/uL (3.86-4.86)
[2019-01-07 07:06] LABS: Magnesium 1.8 mg/dL (1.8-2.4); Potassium 3.7 mmol/L (3.5-5.1)
[2019-01-07] MEDS ORDERED: MAGNESIUM SULFATE 1 gm IVPB 1 GM/100 ML BAG IV ONE (09:53)
[2019-01-07] MEDS ORDERED: POTASSIUM CL SA 10 MEQ TAB PO ONE (09:53)
--- NOTE | 2019-01-07 09:57 | P.DS ---
Admission Date: 01/04/19 Discharge Date: 01/07/19 Primary Care Provider: Dr. Luz Disposition: ROUTINE DISCHARGE Discharge Condition: GOOD Reason for Admission: Abdominal pain Consultations: Surgery-Dr. Molina/Dr. Knight Procedures: CT Scan: FINDINGS: Cholecystectomy. Mild fatty liver Spleen, pancreas, adrenals and kidneys appear unremarkable. The appendix is normal caliber. Diverticula stem from the colon. Thickening of the wall of the sigmoid colon is present. Soft tissue extends from the sigmoid to the bladder. 12 millimeter low- density area is present containing an air bubble. This is compatible with a small abscess. IMPRESSION: Sigmoid diverticulitis with small abscess abutting the bladder. Medical Problem List: Abdominal pain secondary to sigmoid diverticulitis with small abscess with history of diverticulitis Fatty liver Obesity, BMI 37 Brief History of Present Illness: 48-year-old female presented emergency room with abdominal pain. Patient with history of diverticulitis. Pain was mainly to the left lower quadrant. CT scan showed acute sigmoid diverticulitis with small abscess. Patient was admitted for further evaluation and treatment. Hospital Course: Patient presented with abdominal pain secondary to sigmoid diverticulitis with small abscess. Patient with prior history of diverticulitis. Patient received IV fluids and antibiotic therapy. Patient seen and evaluated by surgery. No surgical intervention was required. Patient was given a trial of oral intake. Patient has done well without significant pain, nausea or vomiting. At discharge patient will continue with Cipro 500 mg 1 pill twice daily and Flagyl 500 mg 3 times a day for 2 weeks. Patient may take Tylenol or ibuprofen as needed for pain. A limited supply of tramadol 50 mg 1 pill twice daily as needed for pain will be provided. Patient will continue with a GI low residue soft diet. Recommend to follow up with surgery in 1-2 weeks to follow up this hospitalization. Patient will require colonoscopy in 4-8 weeks to further evaluate. This may be done with the help of GI consultation. Patient will likely require repeat CT scan after treatment to further evaluate her condition. Patient may require surgical intervention as well as an outpatient to further treat. Patient educated if with increasing pain, nausea and vomiting at home, she is to return to the hospital for further evaluation. Patient with underlying fatty liver. Lifestyle modification education provided. Education on fatty liver provided. Patient may benefit with GI evaluation as an outpatient to further monitor. Vital Signs/Physical Exam: Temp Pulse Resp BP Pulse Ox 97.2 F 94 H 18 114/57 L 94 01/07/19 08:00 01/07/19 08:00 01/07/19 08:00 01/07/19 08:00 01/07/19 08:00 General: Alert, In no apparent distress, Oriented x3, Cooperative HEENT: Atraumatic Neck: Supple Respiratory: Clear to auscultation bilaterally, Normal air movement Cardiovascular: Normal pulses, Regular rate/rhythm Gastrointestinal: Normal bowel sounds, Soft and benign, Non-distended, No tenderness, No masses, No rebound, No guarding Musculoskeletal: No erythema, No tenderness, No warmth Integumentary: No tenderness/swelling, No erythema, No warmth, No cyanosis Neurological: Normal speech, Normal strength at 5/5 x4 extr, Normal tone, Normal affect Laboratory Data at Discharge: WBC 11.5 K/uL (4.3-10.9) H 01/07/19 06:06 Hgb 13.4 g/dL (12.0-15.0) 01/07/19 06:06 Hct 38.9 % (36.0-45.0) 01/07/19 06:06 Plt Count 249 K/uL (152-406) 01/07/19 06:06 Sodium 139 mmol/L (136-145) 01/07/19 06:06 Potassium 3.7 mmol/L (3.5-5.1) 01/07/19 06:06 BUN 7 mg/dL (7-18) 01/07/19 06:06 Creatinine 0.90 mg/dL (0.55-1.3) 01/07/19 06:06 Glucose 108 mg/dL (74-106) H 01/07/19 06:06 Phosphorus 3.7 mg/dL (2.5-4.9) 01/05/19 05:54 Magnesium 1.8 mg/dL (1.8-2.4) 01/07/19 06:06 Total Bilirubin 0.8 mg/dL (0.2-1.0) 01/05/19 05:54 AST 19 U/L (15-37) 01/05/19 05:54 ALT 31 U/L (12-78) 01/05/19 05:54 Alkaline Phosphatase 83 U/L (45-117) 01/05/19 05:54 Lipase 63 U/L (73-393) L 01/04/19 16:55 Home Medications: Ciprofloxacin HCl [Cipro 500 MG Tablet] 500 mg PO BID #28 tab 01/07/19 metroNIDAZOLE [Flagyl] 500 mg PO Q8H #42 tablet 01/07/19 traMADol HCL [Ultram*] 50 mg PO TIDP PRN #10 tab 01/07/19 New Medications: Ciprofloxacin HCl [Cipro 500 MG Tablet] 500 mg PO BID #28 tab metroNIDAZOLE [Flagyl] 500 mg PO Q8H #42 tablet traMADol HCL [Ultram*] 50 mg PO TIDP PRN #10 tab PRN Reason: Pain Scale 2-4 (Mild) Patient Discharge Instructions: 1. Recommend a follow up with her PCP in 1 week to follow up this hospitalization. 2. Patient presented with abdominal pain secondary to sigmoid diverticulitis with small abscess. Patient with prior history of diverticulitis. Patient received IV fluids and antibiotic therapy. Patient seen and evaluated by surgery. No surgical intervention was required. Patient was given a trial of oral intake. Patient has done well without significant pain, nausea or vomiting. At discharge patient will continue with Cipro 500 mg 1 pill twice daily and Flagyl 500 mg 3 times a day for 2 weeks. Patient may take Tylenol or ibuprofen as needed for pain. A limited supply of tramadol 50 mg 1 pill twice daily as needed for pain will be provided. Patient will continue with a GI low residue soft diet. Recommend to follow up with surgery in 1-2 weeks to follow up this hospitalization. Patient will require colonoscopy in 4-8 weeks to further evaluate. This may be done with the help of GI consultation. Patient will likely require repeat CT scan after treatment to further evaluate her condition. Patient may require surgical intervention as well as an outpatient to further treat. Patient educated if with increasing pain, nausea and vomiting at home, she is to return to the hospital for further evaluation. 3. Patient with underlying fatty liver. Lifestyle modification education provided. Education on fatty liver provided. Patient may benefit with GI evaluation as an outpatient to further monitor. Diet: GI low residue diet Activity: Ad jero Time spent managing pt's care (in minutes): 55
== END 2019-01-07 16:18 | disposition home or self-care (01) | DRG 392 ==
LOC: ER 16:18 → ERHOLD 22:53 → 4TH 23:16
PROVIDERS: ADMIT Hospitalist; ATTEND Hospitalist
DX: K57.20 Diverticulitis of large intestine with perforation and abscess without bleeding (principal); K76.0 Fatty (change of) liver, not elsewhere classified; E66.9 Obesity, unspecified; Z68.37 Body mass index [BMI] 37.0-37.9, adult
CPT/HCPCS: 36415; 74022; 74177; 80048; 80053; 80076; 81003; 81015; 83690; 83735; 84100; 84145; 85025; 87045; 87046; 87177; 87209; 87493; 96361; 96365; 96375; 99285; J0744; J1170; J1650; J2405; J3475; J7030; Q9967

== ENCOUNTER 2019-02-05 18:20 | Emergency (ER) | payer OTHER ==
--- OUTSIDE RECORDS SUMMARY | 2019-02-05 18:24 | XMS REPORT | Continuity of Care Document ---
:1970 Author Organization [facility] Care Team Providers Name Role Phone [facility] Unavailable Unavailable Problems Problem Status Onset Classification [...] [facility] MG/ML Injection Drug form: INJ, [place] [id number], Dosing Weight 82.045, kg, Start date: 01/02/17 [...] Form: 2017 [facility] Ipratropium SOLN, Dosing [place] Renick 0.167 Weight 89.148, MG/ML Inhalant kg, ONCE, [...] Magnesium Lvl 1.8 1.8 - 2.4 01/02 [place] [facility] Phosphorus 3.0 2.5 - 4.5 01/02 [place] [facility] eGFR 101 01/02 Result Comment: [...] Potassium Lvl 3.7 3.5 - 5.1 01/02 [place] [facility] Chloride Lvl 110 95 - 109 01/02 [place] [facility] Creatinine Lvl 0.73 0.50 - 01/02 [facility] 1.40 [place] [facility]EL Sodium Lvl 143 135 - 145 01/02 [place] [facility]EL CO2 29 24 - 32 01/02 [place] [facility]M PANEL AGAP 7.7 10.0 - 01/02 MH 20.0 [place] [facility]M PANEL Calcium Lvl 7.5 8.5 - 10.5 01/02 [place] [facility]M PANEL Glucose Lvl 97 70 - 99 01/02 [place] [facility] PANEL BUN 9 7 - 22 07/ /2016 [place] HEMATOLOGY Platelet 188 133 - 450 07/ /2016 [place] HEMATOLOGY RDW 12.6 11.5 - 07/ MH 14.5 /2016 [place] HEMATOLOGY MPV 9.0 7.4 - 10.4 07/ /2016 [place] HEMATOLOGY Hgb 11.4 12.0 - 07/ MH 16.0 /2016 [place] HEMATOLOGY MCV 90.2 80.0 - 07/ MH 98.0 /2017 [place] HEMATOLOGY Hct 34.3 36.0 - 07/ MH 48.0 /2016 [place] HEMATOLOGY WBC 9.0 3.7 - 10.4 07/ /2016 [place] HEMATOLOGY RBC 3.80 4.20 - 07 MH 5.40 /2016 [place] HEMATOLOGY MCH 30.0 27.0 - 07/ MH 31.0 /2016 [place] HEMATOLOGY MCHC 33.2 32.0 - 07 MH 36.0 /2016 [place] HEMATOLOGY Lymphocytes 24.8 20.0 - 07 MH 40.0 /2016 [place] HEMATOLOGY Segs 66.6 45.0 - 07/ MH 75.0 /2016 [place] HEMATOLOGY Monocytes 6.4 2.0 - 12.0 / /2016 [place] HEMATOLOGY Eosinophils 1.3 0.0 - 4.0 / [place] [facility]AT[facility] Basophils 0.9 0.0 - 1.0 / /2016 [place] HEMATOLOGY Segs-Bands # 6.0 1.5 - 8.1 01/02 [place] HEMATOLOGY Basophils # 0.1 0.0 - 0.2 / [place] HEMATOLOG[facility] Monocytes # 0.6 0.0 - 0.8 / [place] HEMATOLOGY Eosinophils # 0.1 0.0 - 0.5 / [place] HEMATOLOGY Lymphocytes # 2.2 1.0 - 5.5 01/02 [place] CHEM PANEL Lactic Acid 1.6 0.5 - 2.2 07/ MH Lvl /2016 [place] CHEM PANEL Lipase Lvl 102 73 - 393 01/01 [place] CHEM PANEL eGFR 77 07/ [facility] Comment: The [facility] eGFR is Land calculated [...] Bili Total 0.8 0.2 - 1.3 01/01 [place] CHEM PANEL AST 11 0 - 37 01/01 [place] CHEM PANEL ALT 22 0 - 65 01/01 [place] [facility]M PANEL Alk Phos 82 39 - 136 01/01 [place] CHEM PANEL CO2 27 24 - 32 01/01 [place] CHEM PANEL Albumin Lvl 3.8 3.5 - 5.0 01/01 [place] CHEM PANEL Total Protein 7.9 6.4 - 8.4 01/01 [place] CHEM PANEL Calcium Lvl 9.4 8.5 - 10.5 01/01 [place] CHEM PANEL Potassium Lvl 3.7 3.5 - 5.1 01/01 [place] CHEM PANEL Chloride Lvl 104 95 - 109 01/01 [place] CHEM PANEL Sodium Lvl 140 135 - 145 01/01 [place] CHEM PANEL Glucose Lvl 111 70 - 99 01/01 [place] CHEM PANEL Creatinine Lvl 0.91 0.50 - 07/ MH 1.40 /2017 [place] CHEM PANEL BUN 12 7 - 22 01/01 [place] [facility] PANEL A/G Ratio 0.9 0.7 - 1.6 01/01 [place] CHEM PANEL AGAP 12.7 10.0 - 07/ MH 20.0 /2016 [place] CHEM PANEL Globulin 4.1 2.7 - 4.2 01/01 [place] [facility]M PANEL B/C Ratio 13 6 - 25 07/ /2016 [place] HEMATOLOGY Segs 80.5 45.0 - 07 MH 75.0 /2016 [place] HEMATOLOGY Eosinophils 0.3 0.0 - 4.0 01/01 [place] HEMATOLOGY Lymphocytes 13.9 20.0 - 07 MH 40.0 /2016 [place] HEMATOLOGY Monocytes 5.1 2.0 - 12.0 01/01 [place] HEMATOLOGY Plt Morph Normal 01/01 MH (01/01/17 12:16 PM) [place] HEMATOLOGY RBC Morph Normal 01/01 MH (01/01/17 12:16 PM) [place] HEMATOLOGY Basophils # 0.0 0.0 - 0.2 01/01 [place] HEMATOLOGY Eosinophils # 0.1 0.0 - 0.5 01/01 [place] HEMATOLOGY Basophils 0.2 0.0 - 1.0 01/01 [place] HEMATOLOGY Segs-Bands # 13.7 1.5 - 8.1 01/01 [place] HEMATOLOGY Lymphocytes # 2.4 1.0 - 5.5 01/01 [place] HEMATOLOGY Monocytes # 0.9 0.0 - 0.8 01/01 [place] HEMATOLOGY MPV 9.1 7.4 - 10.4 01/01 [place] HEMATOLOGY Platelet 272 133 - 450 01/01 [place] HEMATOLOGY Hct 44.3 36.0 - 01/01 MH 48.0 /2016 [place] HEMATOLOGY MCV 89.6 80.0 - 01/01 MH 98.0 /2016 [place] HEMATOLOGY MCH 29.6 27.0 - 07 MH 31.0 [place] HEMATOLOGY RDW 12.7 11.5 - 07 MH 14.5 /2016 [place] HEMATOLOGY MCHC 33.1 32.0 - 07 MH 36.0 /2016 [place] HEMATOLOGY WBC 17.0 3.7 - 10.4 01/01 [place] HEMATOLOGY Hgb 14.7 12.0 - 01/01 MH 16.0 [place] HEMATOLOGY RBC 4.95 4.20 - 01/01 MH 5.40 /2016 [place] URINE AND UA Protein Negative Negative 01/01 [facility] mg/dL mg/dL [place] URINE AND UA Ketones Negative Negative 01/01 [facility] mg/dL mg/dL [place] URINE AND UA Glucose Negative Negative 01/01 [facility] mg/dL mg/dL [place] URINE AND UA Color Yellow Yellow 01/01 [facility] *NA* /2016 [place] (01/01/17 12:16 PM) [place] URINE AND UA Turbidity Slight Clear 01/01 [facility] *ABN* /2016 [place] (01/01/17 12:16 PM) [place] URINE AND UA pH 6.0 5.0 - 8.0 01/01 [facility] [place] URINE AND UA Spec Grav 1.016 <=1.030 01/01 [facility] [place] URINE AND UA <=1.0 0.1 - 1.0 01/01 [facility] Urobilinogen mg/dL /2016 [place] URINE AND UA RBC 1 0 - 2 01/01 [facility] [place] URINE AND UA WBC 6 0 - 5 01/01 [facility] [place] URINE AND UA Hyal Cast 1 0 - 2 01/01 [facility] [place] URINE AND UA Mucus Few /LPF None Seen 01/01 [facility] /LPF /2016 [place] URINE AND UA Bili Negative Negative 01/01 [facility] *NA* /2016 [place] (01/01/17 12:16 PM) [place] URINE AND UA Blood Negative Negative 01/01 [facility] (01/01/17 12:16 PM) [place] URINE AND UA Leuk Est Trace Negative 01/01 [facility] *ABN* /2016 [place] (01/01/17 12:16 PM) [place] URINE AND UA Nitrite Negative Negative 01/01 [facility] (01/01/17 12:16 PM) [place] URINE AND UA Sq Epi Moderate Few /LPF 01/01 MH [facility] /LPF /2016 [place] URINE AND UA 2.0 0.1 - 1.0 10/09 [facility] Urobilinogen /2016 [place] URINE AND UA Sq Epi Many /LPF Few /LPF 10/09 ST[facility]OL [place] URINE AND UA Nitrite Negative Negative 10/09 [facility] (10/09/16 5:21 AM) [place] URINE AND UA WBC 5 0 - 5 10/09 STOOL [place] URINE AND UA Leuk Est Negative Negative 10/09 [facility] (10/09/16 5:21 AM) [place] URINE AND UA Mucus Few /LPF None Seen 10/09 [facility] /LPF /2016 [place] URINE AND UA Spec Grav 1.030 <=1.030 10/09 STOOL [place] URINE AND UA RBC 4 0 - 2 10/09 ST[facility] [place] URINE AND UA Glucose Negative Negative 10/09 [facility] mg/dL mg/dL [place] URINE AND UA Blood Small Negative 10/09 [facility] *ABN* [place] (10/09/16 5:21 AM) [place] URINE AND UA Bili Negative Negative 10/09 [facility] *NA* [place] (10/09/16 5:21 AM) [place] URINE AND UA Ketones Negative Negative 10/09 [facility] mg/dL mg/dL [place] URINE AND UA Protein 30 mg/dL Negative 10/09 [facility] mg/dL [place] URINE AND UA pH 5.0 5.0 - 8.0 10/09 STOOL [place] URINE AND UA Turbidity Marked Clear 10/09 [facility] *ABN* [facility] (10/09/16 5:21 AM) [place] URINE AND UA Color Dark Yellow Yellow 10/09 [facility] *NA* [place] (10/09/16 5:21 AM) [place] URINE CHEM U Preg Negative Negative 10/09 (10/09/16 5:21 AM) [place] VIRAL - Influ B Negative Negative 10/09 SEROLOGY (10/08/16 9:33 PM) [place] VIRAL - Influ A Negative Negative 10/09 SEROLOGY (10/08/16 9:33 PM) [place] Pathology Reports No Data Provided for This Section Diagnostic Reports Report Value Date Source Renal Stone CT EXAM: CT ABDOMEN/PELVIS WITHOUT CONTRAST (RENAL STONE) 2016 [facility] DATE: 01/01/2017 12:11 PM CDT . CLINICAL [...] female presents with fever and cough. 10/09/2016 [place] : 1970. PROCEDURE: Frontal chest radiograph has [...] Source Temperature Oral (F) 98.9 F 01/02/2017 [place] Systolic (mm Hg) 118 01/02/2017 MH [place] Diastolic (mm Hg) 75 01/02/2017 [place] Heart Rate 82 01/02/2017 [place] Respitory Rate 16 01/02/2017 MH [place] Heart Rate 80 01/02/2017 MH [place] Respitory Rate 16 01/02/2017 MH [place] Temperature Oral (F) 97.9 F 01/02/2017 MH [place] Systolic (mm Hg) 93 01/02/2017 MH [place] Diastolic (mm Hg) 60 01/02/2017 [place] Temperature Oral (F) 98.1 F 01/02/2017 MH [place] Respitory Rate 16 01/02/2017 MH [place] Heart Rate 80 01/02/2017 MH [place] Systolic (mm Hg) 96 01/02/2017 [place] Diastolic (mm Hg) 59 01/02/2017 [place] Height 160.02 cm 01/01/2017 [place] BMI Calculated 31.95 01/01/2017 [place] Weight 81.818 01/01/2017 [place] Weight 82.045 01/01/2017 [place] BMI Calculated 32.04 01/01/2017 [place] Height 160.02 cm 01/01/2017 [place] Temperature Oral (F) 100.0 F 10/09/2016 MH [place] Systolic (mm Hg) 115 10/09/2016 MH [place] Diastolic (mm Hg) 89 10/09/2016 [place] Respitory Rate 18 10/09/2016 [place] Heart Rate 99 10/09/2016 MH [place] Systolic (mm Hg) 129 10/09/2016 [place] Diastolic (mm Hg) 99 10/09/2016 [place] Temperature Oral (F) 100.7 F 10/09/2016 [place] Weight 89.148 10/09/2016 [place] Heart Rate 102 10/09/2016 [place] Respitory Rate 18 10/09/2016 [place] Respitory Rate 18 10/09/2016 [place] Heart Rate 99 10/09/2016 [place] Systolic (mm Hg) 115 10/09/2016 MH [place] Diastolic (mm Hg) 62 10/09/2016 [place] Temperature Oral (F) 99.2 F 10/09/2016 [place] Height 160.02 cm 10/09/2016 [place] BMI Calculated 34.9 10/09/2016 [place] Weight 89.364 10/09/2016 [place] Systolic (mm Hg) 110 10/09/2016 MH [place] Diastolic (mm Hg) 65 10/09/2016 [place] Temperature Oral (F) 99.6 F 10/09/2016 [place] Respitory Rate 20 10/09/2016 [place] Heart Rate 109 10/09/2016 [place] Encounters Location Location Encounter Encounter Reason Attending ADM DC Status Source Details Type Number For Provider Date Date [facility] [id number] Bob 10/09 10/09 LAZ Whittaker /2016 [facility] [id number] [place] 10/09 10/09 LAZ Hutchinson [facility] [place] [facility] [id number] Casie Devine 01/01 01/02 LAZ Mckenna /2016 [facility] [place] [facility] Procedures Procedure Code Date Perfomer Comments Source Cholecystectomy [id number] [place] Hysterectomy [id number] [place] Assessment and Plan Assessment and Plan Date [...]
--- NOTE | 2019-02-05 20:31 | EDPHYS ---
Physician Documentation [facility] Name: Catherine Rockwell Age: 49 yrs Sex: Female : 1970 Arrival Date: 02/05/2019 Time: 18:24 Bed 9 Private MD: ED Physician Mohan Verduzco HPI: 02/05 20:16 This 49 yrs old Female presents to ER via Wheelchair with complaints of Back ps1 Pain. 20:32 Patient states that she was in [place] but fell approximately 2 months ago. No problems ps1 since. She states that she woke up this morning and had back pain without radiation. No fever. No immunocompromise. No saddle signs. No loss of rectal tone. Pain is rated as moderate, worse with ambulation. . 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 - Social history:: Smoking status: Patient uses tobacco products, denies chronic smoking, but will smoke occasionally. - Ebola Screening: : No symptoms or risks identified at this time. ROS: 20:32 Constitutional: Negative for fever, chills, and weight loss, Eyes: Negative for injury, ps1 pain, redness, and discharge, Cardiovascular: Negative for chest pain, palpitations, and edema, Respiratory: Negative for shortness of breath, cough, wheezing, and pleuritic chest pain, Abdomen/GI: Negative for abdominal pain, nausea, vomiting, diarrhea, and constipation, MS/Extremity: Negative for injury and deformity, Skin: Negative for injury, rash, and discoloration, Neuro: Negative for headache, weakness, numbness, tingling, and seizure. 20:32 Back: Positive for decreased range of motion, pain with movement. Exam: 20:32 Constitutional: This is a well developed, well nourished patient who is awake, alert, ps1 and in no acute distress. Head/Face: Normocephalic, atraumatic. Eyes: Pupils equal round and reactive to light, extra-ocular motions intact. Lids and lashes normal. Conjunctiva and sclera are non-icteric and not injected. Neck: Trachea midline, no thyromegaly or masses palpated, and no cervical lymphadenopathy. Supple, full range of motion without nuchal rigidity, or vertebral point tenderness. No Meningismus. Chest/axilla: Normal chest wall appearance and motion. Nontender with no deformity. No lesions are appreciated. Cardiovascular: Regular rate and rhythm. No gallops, murmurs, or rubs. Normal PMI, no JVD. No pulse deficits. Respiratory: Lungs have equal breath sounds bilaterally, clear to auscultation and percussion. No rales, rhonchi or wheezes noted. No increased work of breathing, no retractions or nasal flaring. Skin: Warm, dry with normal turgor. Normal color with no rashes, no lesions, and no evidence of cellulitis. MS/ Extremity: Pulses equal, no cyanosis. Neurovascular intact. Full, normal range of motion. Neuro: Awake and alert, GCS 15, oriented to person, place, time, and situation. Cranial nerves II-XII grossly intact. Sensory grossly intact. 20:32 Back: pain, that is mild, ROM is decreased, muscle spasm, is appreciated in the right mid back and right low back. Vital Signs: 18:36 BP 140 / 91; Pulse 81; Resp 16; Temp 97.8; Pulse Ox 100% on R/A; Weight 95.25 kg; hb Height 5 ft. 3 in. (160.02 cm); Pain 10/10; 18:36 Body Mass Index 37.20 (95.25 kg, 160.02 cm) hb MDM: 20:31 Patient medically screened. ps1 20:32 Data reviewed: vital signs, nurses notes. Counseling: I had a detailed discussion with ps1 the patient and/or guardian regarding: the historical points, exam findings, and any diagnostic results supporting the discharge/admit diagnosis, to return to the emergency department if symptoms worsen or persist or if there are any questions or concerns that arise at home. ED course: pain and ROM improved after OM with HVLA. Pt stable for discharge. . Administered Medications: No medications were administered Disposition: 02/05/19 20:31 Discharged to Home. Impression: Lumbago. - Condition is Stable. - Discharge Instructions: Back Pain, Adult. - Prescriptions for Anaprox DS 550 mg Oral Tablet - take 1 tablet by ORAL route every 12 hours As needed; 20 tablet. Robaxin 500 mg Oral Tablet - take 2 tablet by ORAL route every 6 hours As needed; 40 tablet. Medrol (Rashawn) 4 mg Oral Tablets, Dose Pack - take 1 tablet by ORAL route as directed - follow package instructions; 1 packet. - Medication Reconciliation Form, Thank You Letter, Antibiotic Education, Prescription Opioid Use form. - Follow up: Private Physician; When: As needed; Reason: Further diagnostic work-up, Recheck today's complaints, Re-evaluation by your physician. Follow up: Emergency Department; When: As needed; Reason: Worsening of condition. - Problem is new. - Symptoms are unchanged. Signatures: Anjali Isaacs RN RN aj1 Tea Reilly RN RN hb Mohan Verduzco MD MD ps1 Corrections: (The following items were deleted from the chart) 21:22 20:31 02/05/2019 20:31 Discharged to Home. Impression: Lumbago. Condition is Stable. aj1 Forms are Medication Reconciliation Form, Thank You Letter, Antibiotic Education, Prescription Opioid Use. Follow up: Private Physician; When: As needed; Reason: Further diagnostic work-up, Recheck today's complaints, Re-evaluation by your physician. Follow up: Emergency Department; When: As needed; Reason: Worsening of condition. Problem is new. Symptoms are unchanged. ps1
--- NOTE | 2019-02-05 20:31 | ER ---
Nurse's Notes [facility] Name: Catherine Rockwell Age: 49 yrs Sex: Female : 1970 Arrival Date: 02/05/2019 Time: 18:24 Bed 9 Private MD: Diagnosis: Lumbago Presentation: 02/05 18:35 Presenting complaint: Low back pain upon waking today. Denies injury. Transition of care: patient was not received from another setting of care. Onset of symptoms was February 05, 2019. Risk Assessment: Do you want to hurt yourself or someone else? Patient reports no desire to harm self or others. Initial Sepsis Screen: Does the patient meet any 2 criteria? No. Patient's initial sepsis screen is negative. Does the patient have a suspected source of infection? No. Patient's initial sepsis screen is negative. Care prior to arrival: None. 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 - Social history:: Smoking status: Patient uses tobacco products, denies chronic smoking, but will smoke occasionally. - Ebola Screening: : No symptoms or risks identified at this time. Screenin:18 Abuse screen: Denies threats or abuse. Denies injuries from another. Nutritional aj1 screening: No deficits noted. Tuberculosis screening: No symptoms or risk factors identified. 20:29 Fall Risk None identified. aj1 Assessment: 19:18 General: Appears in no apparent distress. uncomfortable, Behavior is calm, cooperative, aj1 appropriate for age. Pain: Complains of pain in low back area Pain does not radiate. Neuro: Level of Consciousness is awake, alert, obeys commands, Oriented to person, place, time, situation, Family Advocate are equal bilaterally. Cardiovascular: Patient's skin is warm and dry. Respiratory: Airway is patent Respiratory effort is even, unlabored, Respiratory pattern is regular, symmetrical. GI: No signs and/or symptoms were reported involving the gastrointestinal system. : No signs and/or symptoms were reported regarding the genitourinary system. EENT: No signs and/or symptoms were reported regarding the EENT system. Derm: No signs and/or symptoms reported regarding the dermatologic system. Skin is pink, warm \T\ dry. normal. Musculoskeletal: No signs and/or symptoms reported regarding the musculoskeletal system. Circulation, motion, and sensation intact. 20:00 Reassessment: Dr. Verduzco at bedside. aj1 20:29 Reassessment: Patient appears in no apparent distress at this time. No changes from aj1 previously documented assessment. Patient and/or family updated on plan of care and expected duration. Pain level reassessed. Patient is alert, oriented x 3, equal unlabored respirations, skin warm/dry/pink. 21:21 Reassessment: Patient appears in no apparent distress at this time. No changes from aj1 previously documented assessment. Patient and/or family updated on plan of care and expected duration. Pain level reassessed. Patient is alert, oriented x 3, equal unlabored respirations, skin warm/dry/pink. Vital Signs: 18:36 BP 140 / 91; Pulse 81; Resp 16; Temp 97.8; Pulse Ox 100% on R/A; Weight 95.25 kg; hb Height 5 ft. 3 in. (160.02 cm); Pain 10/10; 18:36 Body Mass Index 37.20 (95.25 kg, 160.02 cm) hb ED Course: 18:24 Patient arrived in ED. mr 18:35 Triage completed. hb 18:36 Arm band placed on right wrist. hb 19:18 Anjali Isaacs, RN is Primary Nurse. aj1 19:18 Patient has correct armband on for positive identification. Bed in low position. Call aj1 light in reach. 19:18 No provider procedures requiring assistance completed. aj1 19:31 Mohan Verduzco MD is Attending Physician. ps1 21:21 Patient did not have IV access during this emergency room visit. aj1 Administered Medications: No medications were administered Outcome: 20:31 Discharge ordered by . ps1 21:21 Discharged to home ambulatory. aj1 21:21 Condition: good 21:21 Discharge instructions given to patient, Instructed on discharge instructions, follow up and referral plans. medication usage, Demonstrated understanding of instructions, follow-up care, medications, Prescriptions given X 3. 21:22 Patient left the ED. aj1 Signatures: Anjali Isaacs RN RN aj1 Mora Orlando Heather, RN RN hb Singer, Phillip, MD MD ps1
== END 2019-02-05 21:22 | disposition home or self-care (01) ==
LOC: ER 18:20
DX: M54.5 Low back pain (principal); Z72.0 Tobacco use
CPT/HCPCS: 99282

== ENCOUNTER 2019-02-11 12:11 | Emergency (ER) | payer OTHER ==
--- OUTSIDE RECORDS SUMMARY | 2019-02-11 12:14 | XMS REPORT | Continuity of Care Document ---
:1970 Author Organization [employer] Care Team Providers Name Role Phone [employer] Unavailable Unavailable Problems Problem Status Onset Classification [...] [place] MG/ML Injection Drug form: INJ, [place] [id number], Dosing Weight 82.045, kg, Start date: 01/02/17 [...] Form: 2017 [place] Ipratropium SOLN, Dosing [place] 0.167 Weight 89.148, MG/ML Inhalant kg, ONCE, [...] Magnesium Lvl 1.8 1.8 - 2.4 01/02 [place] CHEM PANEL Phosphorus 3.0 2.5 - 4.5 01/02 [place] CHEM PANEL eGFR 101 01/02 Result Comment: [...] Potassium Lvl 3.7 3.5 - 5.1 01/02 [place] CHEM PANEL Chloride Lvl 110 95 - 109 01/02 [place] CHEM PANEL Creatinine Lvl 0.73 0.50 - 01/02 MH 1.40 [place] CHEM PANEL Sodium Lvl 143 135 - 145 01/02 [place] CHEM PANEL CO2 29 24 - 32 01/02 [place] CHEM PANEL AGAP 7.7 10.0 - 01/02 MH 20.0 [place] CHEM PANEL Calcium Lvl 7.5 8.5 - 10.5 01/02 [place] CHEM PANEL Glucose Lvl 97 70 - 99 01/02 [place] CHEM PANEL BUN 9 7 - 22 07/ /2016 [place] HEMATOLOGY Platelet 188 133 - 450 07/ /2016 [place] HEMATOLOGY RDW 12.6 11.5 - 07/ MH 14.5 /2016 [place] HEMATOLOGY MPV 9.0 7.4 - 10.4 07/ /2016 [place] HEMATOLOGY Hgb 11.4 12.0 - 07/ MH 16.0 /2016 [place] HEMATOLOGY MCV 90.2 80.0 - 07/ MH 98.0 /2017 [place] HEMATOLOGY Hct 34.3 36.0 - 07/ MH 48.0 /2016 [place] HEMATOLOGY WBC 9.0 3.7 - 10.4 07/ /2016 [place] HEMATOLOGY RBC 3.80 4.20 - 07 MH 5.40 /2016 [place] HEMATOLOGY MCH 30.0 27.0 - 07/ MH 31.0 /2016 [place] HEMATOLOGY MCHC 33.2 32.0 - 07 MH 36.0 /2016 [place] HEMATOLOGY Lymphocytes 24.8 20.0 - 07 MH 40.0 /2016 [place] HEMATOLOGY Segs 66.6 45.0 - 07/ MH 75.0 /2016 [place] HEMATOLOGY Monocytes 6.4 2.0 - 12.0 / /2016 [place] HEMATOLOGY Eosinophils 1.3 0.0 - 4.0 / [place] HEMATOLOGY Basophils 0.9 0.0 - 1.0 / /2016 [place] HEMATOLOGY Segs-Bands # 6.0 1.5 - 8.1 01/02 [place] HEMATOLOGY Basophils # 0.1 0.0 - 0.2 / [place] HEMATOLOGY Monocytes # 0.6 0.0 - 0.8 / [place] HEMATOLOGY Eosinophils # 0.1 0.0 - 0.5 / [place] HEMATOLOGY Lymphocytes # 2.2 1.0 - 5.5 01/02 [place] CHEM PANEL Lactic Acid 1.6 0.5 - 2.2 07/ MH Lvl /2016 [place] CHEM PANEL Lipase Lvl 102 73 - 393 01/01 [place] CHEM PANEL eGFR 77 07/ [facility] Comment: The Sugar eGFR is [...] Bili Total 0.8 0.2 - 1.3 01/01 [place] CHEM PANEL AST 11 0 - 37 01/01 [place] CHEM PANEL ALT 22 0 - 65 01/01 [place] CHEM PANEL Alk Phos 82 39 - 136 01/01 [place] CHEM PANEL CO2 27 24 - 32 01/01 [place] CHEM PANEL Albumin Lvl 3.8 3.5 - 5.0 01/01 [place] CHEM PANEL Total Protein 7.9 6.4 - 8.4 01/01 [place] CHEM PANEL Calcium Lvl 9.4 8.5 - 10.5 01/01 [place] CHEM PANEL Potassium Lvl 3.7 3.5 - 5.1 01/01 [place] CHEM PANEL Chloride Lvl 104 95 - 109 01/01 [place] CHEM PANEL Sodium Lvl 140 135 - 145 01/01 [place] CHEM PANEL Glucose Lvl 111 70 - 99 01/01 [place] CHEM PANEL Creatinine Lvl 0.91 0.50 - 07/ MH 1.40 /2017 [place] CHEM PANEL BUN 12 7 - 22 01/01 [place] CHEM PANEL A/G Ratio 0.9 0.7 - 1.6 01/01 [place] CHEM PANEL AGAP 12.7 10.0 - 07/ MH 20.0 /2016 [place] CHEM PANEL Globulin 4.1 2.7 - 4.2 01/01 [place] CHEM PANEL B/C Ratio 13 6 - 25 07/ /2016 [place] HEMATOLOGY Segs 80.5 45.0 - 07 MH 75.0 /2016 [place] HEMATOLOGY Eosinophils 0.3 0.0 - 4.0 01/01 [place] HEMATOLOGY Lymphocytes 13.9 20.0 - 07 MH 40.0 /2016 [place] HEMATOLOGY Monocytes 5.1 2.0 - 12.0 01/01 [place] HEMATOLOGY Plt Morph Normal 01/01 MH (01/01/17 12:16 PM) [place] HEMATOLOGY RBC Morph Normal 01/01 MH (01/01/17 12:16 PM) [place] HEMATOLOGY Basophils # 0.0 0.0 - 0.2 01/01 [place] HEMATOLOGY Eosinophils # 0.1 0.0 - 0.5 01/01 [place] HEMATOLOGY Basophils 0.2 0.0 - 1.0 01/01 [place] HEMATOLOGY Segs-Bands # 13.7 1.5 - 8.1 01/01 [place] HEMATOLOGY Lymphocytes # 2.4 1.0 - 5.5 01/01 [place] HEMATOLOGY Monocytes # 0.9 0.0 - 0.8 01/01 [place] HEMATOLOGY MPV 9.1 7.4 - 10.4 01/01 [place] HEMATOLOGY Platelet 272 133 - 450 01/01 [place] HEMATOLOGY Hct 44.3 36.0 - 01/01 MH 48.0 /2016 [place] HEMATOLOGY MCV 89.6 80.0 - 01/01 MH 98.0 /2016 [place] HEMATOLOGY MCH 29.6 27.0 - 07 MH 31.0 [place] HEMATOLOGY RDW 12.7 11.5 - 07 MH 14.5 /2016 [place] HEMATOLOGY MCHC 33.1 32.0 - 07 MH 36.0 /2016 [place] HEMATOLOGY WBC 17.0 3.7 - 10.4 01/01 [place] HEMATOLOGY Hgb 14.7 12.0 - 01/01 MH 16.0 [place] HEMATOLOGY RBC 4.95 4.20 - 01/01 MH 5.40 /2016 [place] URINE AND UA Protein Negative Negative 01/01 [facility] mg/dL mg/dL [place] URINE AND UA Ketones Negative Negative 01/01 [facility] mg/dL mg/dL [place] URINE AND UA Glucose Negative Negative 01/01 [facility] mg/dL mg/dL [place] URINE AND UA Color Yellow Yellow 01/01 [facility] *NA* /2016 [place] (01/01/17 12:16 PM) [place] URINE AND UA Turbidity Slight Clear 01/01 [facility] *ABN* /2016 [place] (01/01/17 12:16 PM) [place] URINE AND UA pH 6.0 5.0 - 8.0 01/01 [facility] [place] URINE AND UA Spec Grav 1.016 <=1.030 01/01 [facility] [place] URINE AND UA <=1.0 0.1 - 1.0 01/01 [facility] Urobilinogen mg/dL /2016 [place] URINE AND UA RBC 1 0 - 2 01/01 [facility] [place] URINE AND UA WBC 6 0 - 5 01/01 [facility] [place] URINE AND UA Hyal Cast 1 0 - 2 01/01 [facility] [place] URINE AND UA Mucus Few /LPF None Seen 01/01 [facility] /LPF /2016 [place] URINE AND UA Bili Negative Negative 01/01 [facility] *NA* /2016 [place] (01/01/17 12:16 PM) [place] URINE AND UA Blood Negative Negative 01/01 [facility] (01/01/17 12:16 PM) [place] URINE AND UA Leuk Est Trace Negative 01/01 [facility] *ABN* /2016 [place] (01/01/17 12:16 PM) [place] URINE AND UA Nitrite Negative Negative 01/01 [facility] (01/01/17 12:16 PM) [place] URINE AND UA Sq Epi Moderate Few /LPF 01/01 MH [facility] /LPF /2016 [place] URINE AND UA 2.0 0.1 - 1.0 10/09 [facility] Urobilinogen /2016 [place] URINE AND UA Sq Epi Many /LPF Few /LPF 10/09 [facility] [place] URINE AND UA Nitrite Negative Negative 10/09 [facility] (10/09/16 5:21 AM) [place] URINE AND UA WBC 5 0 - 5 10/09 STOOL [place] URINE AND UA Leuk Est Negative Negative 10/09 [facility] (10/09/16 5:21 AM) [place] URINE AND UA Mucus Few /LPF None Seen 10/09 [facility] /LPF /2016 [place] URINE AND UA Spec Grav 1.030 <=1.030 10/09 STOOL [place] URINE AND UA RBC 4 0 - 2 10/09 [facility] [place] URINE AND UA Glucose Negative Negative 10/09 [facility] mg/dL mg/dL [place] URINE AND UA Blood Small Negative 10/09 [facility] *ABN* [place] (10/09/16 5:21 AM) [place] URINE AND UA Bili Negative Negative 10/09 [facility] *NA* [place] (10/09/16 5:21 AM) [place] URINE AND UA Ketones Negative Negative 10/09 [facility] mg/dL mg/dL [place] URINE AND UA Protein 30 mg/dL Negative 10/09 [facility] mg/dL [place] URINE AND UA pH 5.0 5.0 - 8.0 10/09 STOOL [place] URINE AND UA Turbidity Marked Clear 10/09 [facility] *ABN* [facility] (10/09/16 5:21 AM) [place] URINE AND UA Color Dark Yellow Yellow 10/09 [facility] *NA* [place] (10/09/16 5:21 AM) [place] URINE CHEM U Preg Negative Negative 10/09 (10/09/16 5:21 AM) [place] VIRAL - Influ B Negative Negative 10/09 SEROLOGY (10/08/16 9:33 PM) [place] VIRAL - Influ A Negative Negative 10/09 SEROLOGY (10/08/16 9:33 PM) [place] Pathology Reports No Data Provided for This Section Diagnostic Reports Report Value Date Source Renal Stone CT EXAM: CT ABDOMEN/PELVIS WITHOUT CONTRAST (RENAL STONE) [address] [facility] DATE: 01/01/2017 12:11 PM CDT . [...] female presents with fever and cough. 10/09/2016 [place] : 1970. PROCEDURE: Frontal chest radiograph has [...] Source Temperature Oral (F) 98.9 F 01/02/2017 [place] Systolic (mm Hg) 118 01/02/2017 MH [place] Diastolic (mm Hg) 75 01/02/2017 [place] Heart Rate 82 01/02/2017 [place] Respitory Rate 16 01/02/2017 MH [place] Heart Rate 80 01/02/2017 MH [place] Respitory Rate 16 01/02/2017 MH [place] Temperature Oral (F) 97.9 F 01/02/2017 MH [place] Systolic (mm Hg) 93 01/02/2017 MH [place] Diastolic (mm Hg) 60 01/02/2017 [place] Temperature Oral (F) 98.1 F 01/02/2017 MH [place] Respitory Rate 16 01/02/2017 MH [place] Heart Rate 80 01/02/2017 MH [place] Systolic (mm Hg) 96 01/02/2017 [place] Diastolic (mm Hg) 59 01/02/2017 [place] Height 160.02 cm 01/01/2017 [place] BMI Calculated 31.95 01/01/2017 [place] Weight 81.818 01/01/2017 [place] Weight 82.045 01/01/2017 [place] BMI Calculated 32.04 01/01/2017 [place] Height 160.02 cm 01/01/2017 [place] Temperature Oral (F) 100.0 F 10/09/2016 MH [place] Systolic (mm Hg) 115 10/09/2016 MH [place] Diastolic (mm Hg) 89 10/09/2016 [place] Respitory Rate 18 10/09/2016 [place] Heart Rate 99 10/09/2016 MH [place] Systolic (mm Hg) 129 10/09/2016 [place] Diastolic (mm Hg) 99 10/09/2016 [place] Temperature Oral (F) 100.7 F 10/09/2016 [place] Weight 89.148 10/09/2016 [place] Heart Rate 102 10/09/2016 [place] Respitory Rate 18 10/09/2016 [place] Respitory Rate 18 10/09/2016 [place] Heart Rate 99 10/09/2016 [place] Systolic (mm Hg) 115 10/09/2016 MH [place] Diastolic (mm Hg) 62 10/09/2016 [place] Temperature Oral (F) 99.2 F 10/09/2016 [place] Height 160.02 cm 10/09/2016 [place] BMI Calculated 34.9 10/09/2016 [place] Weight 89.364 10/09/2016 [place] Systolic (mm Hg) 110 10/09/2016 MH [place] Diastolic (mm Hg) 65 10/09/2016 [place] Temperature Oral (F) 99.6 F 10/09/2016 [place] Respitory Rate 20 10/09/2016 [place] Heart Rate 109 10/09/2016 [place] Encounters Location Location Encounter Encounter Reason Attending ADM DC Status Source Details Type Number For Provider Date Date [facility] [id number] Bob 10/09 10/09 LAZ Whittaker /2016 [facility] [place] [facility] [id number] [place] 10/09 10/09 LAZ [place] [facility] [place] [facility] [id number] Casie Devine 01/01 01/02 LAZ Mckenna /2016 [facility] [place] [facility] Procedures Procedure Code Date Perfomer Comments Source Cholecystectomy [id number] [place] Hysterectomy [id number] [place] Assessment and Plan Assessment and Plan Date [...]
[2019-02-11] MEDS ORDERED: MORPHINE 4 MG/ML SYR ONE (12:57)
[2019-02-11] MEDS ORDERED: ONDANSETRON 4 MG/2 ML VIAL ONE (12:57)
[2019-02-11] MEDS ORDERED: NA CHLORIDE 0.9% 1,000 ML ONE (12:57)
[2019-02-11 13:04] LABS: Absolute Lymphocytes (CBC) 3.4 K/uL (0.7-4.9); Basophils % 0.8 % (0-1.3); Hematocrit 41.5 % (36.0-45.0); Lymphocytes % 23.8 % (15.3-44.8); MPV 8.7 fL (7.6-11.3); RBC Red Blood Cell Count 4.64 M/uL (3.86-4.86)
[2019-02-11 13:24] LABS: Albumin 3.8 g/dL (3.4-5.0); Bilirubin Direct 0.1 mg/dL (0-0.2); Bilirubin Total 0.5 mg/dL (0.2-1.0); Potassium 3.6 mmol/L (3.5-5.1); Protein, Total 7.5 g/dL (6.4-8.2)
[2019-02-11 13:27] LABS: Urine Blood TRACE (NEG); Urine Glucose NEGATIVE (NEG); Urine Protein NEGATIVE (NEG); Urine Specific Gravity >1.030 (1.005-1.030)
--- NOTE | 2019-02-11 14:03 | RAD REPORT ---
EXAM DESCRIPTION: CT - Abdomen Pelvis W Contrast - 02/11/2019 1:41 pm CLINICAL HISTORY: Abdominal pain COMPARISON: January 04, 2019 CT study, March 13, 2018 CT study TECHNIQUE: Biphasic, helical CT imaging of the abdomen and pelvis was performed following 100 ml non -ionic IV contrast. No oral contrast administered. All CT scans are performed using dose optimization technique as appropriate and may include automated exposure control or mA/KV adjustment according to patient size. FINDINGS: No suspicious findings in the lung bases. No focal liver lesion. Fatty infiltration is present. Spleen and pancreas show no acute findings. Cho lecystectomy clips are present. No biliary tree dilatation. Symmetric renal function is seen with no hydronephrosis or suspicious renal mass. No pyelonephritis o r acute parenchymal process. No adrenal abnormalities. No gastric dilatation or wall thickening. No acute small bowel finding. There is no appendicitis. Fro m the cecum through the descending colon there is no acute process. Patient has a mild evans diverticul osis pattern through this portion. Sigmoid colon has a slightly more prominent diverticulosis pattern . There is stranding between the proximal sigmoid colon in the dome of the bladder. This was present on the most recent comparison. Acute diverticulitis in this region was seen March 2018. A minimal residual or recurrence of the diverticulitis would be possible. The soft tissue extending from the c olon to the dome of the bladder raises concern for enterovesical fistula. No air in the urinary bladd er. Uterus is absent. No ovarian abnormality. No free air or pneumatosis. No inflammatory changes elsewhe re. No hernia, mass or bulky lymphadenopathy. No suspicious bony findings. IMPRESSION: Sigmoid diverticulosis is present and there is stranding in the fatty tissues between th e sigmoid colon and dome of the bladder similar or fractionally worse than January 04 imaging. Similar finding was present on the January 04 study. A minimal residual or recurrent diverticulitis is p ossible. Additionally, the soft tissue that extends from the dome of the bladder to the proximal sigmoid colon is suspicious for an existing or developing enterovesical fistula. Fatty infiltration of the liver.
[2019-02-11] MEDS ORDERED: PROMETHAZINE 25 MG/ML VIAL ONE (15:10)
--- NOTE | 2019-02-11 15:21 | EDPHYS ---
Physician Documentation [facility] Name: Catherine Rockwell Age: 49 yrs Sex: Female : 1970 Arrival Date: 02/11/2019 Time: 12:15 Bed 7 Private MD: ED Physician Anselmo Osman HPI: 02/11 12:46 This 49 yrs old Female presents to ER via Ambulatory with complaints of m Abdominal Pain. 12:46 The patient presents with abdominal pain. Onset: The symptoms/episode began/occurred jmm today. The symptoms radiate to abdomen. Associated signs and symptoms: Pertinent negatives: fever. This is a 49 year old female with a history of diverticulitis that presents to the ED with complaints of lower abdominal pain beginning this morning. Similar in character to previous episodes. Denies vomiting or diarrhea but complains of nausea. . 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 - Social history:: Smoking status: unknown. - Ebola Screening: : No symptoms or risks identified at this time. ROS: 12:46 Constitutional: Negative for fever, chills, and weight loss, Cardiovascular: Negative jmm for chest pain, palpitations, and edema, Respiratory: Negative for shortness of breath, cough, wheezing, and pleuritic chest pain. 12:46 Abdomen/GI: Positive for abdominal pain, nausea, Negative for vomiting, diarrhea. 12:46 All other systems are negative. Exam: 12:46 Constitutional: This is a well developed, well nourished patient who is awake, alert, jmm and in no acute distress. Head/Face: atraumatic. Eyes: EOMI, no conjunctival erythema appreciated ENT: Moist Mucus Membranes Neck: Trachea midline, Supple Chest/axilla: Normal chest wall appearance and motion. Cardiovascular: Regular rate and rhythm. No edema appreciated Respiratory: Normal respirations, no respiratory distress appreciated 12:46 Abdomen/GI: Inspection: abdomen appears normal, Bowel sounds: normal, Palpation: soft, mild abdominal tenderness, in the right lower quadrant and left lower quadrant. 12:46 Musculoskeletal/extremity: ROM: intact in all extremities. 12:46 Neuro: Orientation: is normal, Mentation: is normal, Memory: is normal. 12:46 Psych: Behavior/mood is pleasant, cooperative. Vital Signs: 12:46 BP 130 / 87; Pulse 84; Resp 16; Temp 98.4; Pulse Ox 98% on R/A; Pain 8/10; iw 13:21 BP 145 / 76; Pulse 93; Resp 16 S; Pulse Ox 92% on R/A; Pain 8/10; jl7 13:30 Pain 0/10; jl7 14:00 BP 119 / 63; Pulse 87; Resp 16 S; Pulse Ox 95% on R/A; Pain 0/10; jl7 MDM: 12:35 Patient medically screened. edel 15:17 Data reviewed: vital signs, nurses notes, lab test result(s), radiologic studies, CT [facility] scan. Counseling: I had a detailed discussion with the patient and/or guardian regarding: the historical points, exam findings, and any diagnostic results supporting the discharge/admit diagnosis, lab results, radiology results, the need for outpatient follow up, to return to the emergency department if symptoms worsen or persist or if there are any questions or concerns that arise at home. ED course: Patient is alert and non toxic in appearance. Patient's pain is relieved in the ED. I discussed with the patient the need for surgery follow up. Patient is otherwise given strict return precautions. Patient understood and agrees with the plan of care. . 02/11 12:43 Order name: Basic Metabolic Panel [facility] 02/11 12:43 Order name: CBC with Diff; Complete Time: 14:05 [facility] 02/11 12:43 Order name: Creatinine for Radiology; Complete Time: 14:05 [facility] 02/11 12:43 Order name: Hepatic Function; Complete Time: 14:05 [facility] 02/11 12:43 Order name: Lipase; Complete Time: 14:05 [facility] 02/11 12:44 Order name: Basic Metabolic Panel; Complete Time: 14:05 [facility] 02/11 12:43 Order name: CT Abd/Pelvis - IV Contrast Only; Complete Time: 14:05 [facility] 02/11 13:11 Order name: Urine Dipstick--Ancillary (enter results); Complete Time: 14:05 em1 02/11 13:11 Order name: Urine --Ancillary (enter results); Complete Time: 14:05 em1 02/11 12:43 Order name: IV Saline Lock; Complete Time: 12:58 [facility] 02/11 12:43 Order name: Labs collected and sent; Complete Time: 12:58 [facility] Administered Medications: 13:00 Drug: NS 0.9% 1000 ml Route: IV; Rate: 1 bolus; Site: right antecubital; jl7 15:44 Follow up: Response: No adverse reaction; IV Status: Completed infusion; IV Intake: jl7 950ml 13:01 Drug: Zofran 4 mg Route: IVP; Site: right antecubital; jl7 13:30 Follow up: Response: No adverse reaction; Nausea is decreased jl7 13:03 Drug: morphine 4 mg Route: IVP; Site: right antecubital; jl7 13:30 Follow up: Pain 0/10 Adult; Response: No adverse reaction; Pain is decreased jl7 14:24 Drug: LevaQUIN 750 mg Route: PO; jl7 15:13 Follow up: Response: No adverse reaction jl7 14:24 Drug: Flagyl 500 mg Route: PO; jl7 15:13 Follow up: Response: No adverse reaction jl7 15:13 Drug: Promethazine 12.5 mg Route: IVP; Site: right antecubital; jl7 15:35 Follow up: Response: No adverse reaction; Nausea is decreased jl7 Disposition: 02/12 09:35 Co-signature as Attending Physician, Anselmo Osman MD I agree with the assessment and edel plan of care. Disposition: 02/11/19 15:20 Discharged to Home. Impression: Diverticulitis. - Condition is Stable. - Discharge Instructions: Diverticulitis. - Prescriptions for Bentyl 20 mg Oral Tablet - take 2 tablet by ORAL route every 6 hours As needed; 40 tablet. Flagyl 500 mg Oral Tablet - take 1 tablet by ORAL route every 6 hours for 10 days; 40 tablet. Levaquin 750 mg Oral Tablet - take 1 tablet by ORAL route once daily for 10 days; 10 tablet. promethazine 25 mg Oral Tablet - take 1 tablet by ORAL route every 6 hours As needed; 20 tablet. - Medication Reconciliation Form, Thank You Letter, Antibiotic Education, Prescription Opioid Use, Work release form form. - Follow up: Huy Knight MD; When: 2 - 3 days; Reason: Recheck today's complaints, Continuance of care, Re-evaluation by your physician. Signatures: Dispatcher [employer] Anselmo Lopez MD MD cha Mickail, Joel, PA PA jmm Leal, Jahala RN RN jl7 Corrections: (The following items were deleted from the chart) 02/11 15:45 15:20 02/11/2019 15:20 Discharged to Home. Impression: Diverticulitis. Condition is jl7 Stable. Forms are Medication Reconciliation Form, Thank You Letter, Antibiotic Education, Prescription Opioid Use. Follow up: Huy Knight; When: 2 - 3 days; Reason: Recheck today's complaints, Continuance of care, Re-evaluation by your physician. suraj
--- NOTE | 2019-02-11 15:21 | ER ---
Nurse's Notes [facility] Name: Catherine Rockwell Age: 49 yrs Sex: Female : 1970 Arrival Date: 02/11/2019 Time: 12:15 Bed 7 Private MD: Diagnosis: Diverticulitis Presentation: 02/11 12:45 Presenting complaint: Patient states: hx of diverticulosis, thinks she is having a iw flare up. Transition of care: patient was not received from another setting of care. Onset of symptoms was February 11, 2019. Risk Assessment: Do you want to hurt yourself or someone else? Patient reports no desire to harm self or others. Initial Sepsis Screen: Does the patient meet any 2 criteria? No. Patient's initial sepsis screen is negative. Does the patient have a suspected source of infection? No. Patient's initial sepsis screen is negative. Care prior to arrival: None. 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 - Social history:: Smoking status: unknown. - Ebola Screening: : No symptoms or risks identified at this time. Screenin:21 Abuse screen: Denies threats or abuse. Denies injuries from another. Nutritional jl7 screening: No deficits noted. Tuberculosis screening: No symptoms or risk factors identified. Fall Risk IV access (20 points). Total Rodas Fall Scale indicates No Risk (0-24 pts). Assessment: 13:00 General: Appears in no apparent distress. uncomfortable, Behavior is calm, cooperative, jl7 appropriate for age. Pain: Complains of pain in umbilical area, right lower quadrant and left lower quadrant Pain does not radiate. Pain currently is 7 out of 10 on a pain scale. Quality of pain is described as aching, Pain began 1 day ago. Is continuous. Neuro: Level of Consciousness is awake, alert, obeys commands, Oriented to person, place, time, situation. Cardiovascular: Patient's skin is warm and dry. Respiratory: Airway is patent Respiratory effort is even, unlabored, Respiratory pattern is regular, symmetrical. GI: Abdomen is round non-distended, Bowel sounds present X 4 quads. Abd is soft X 4 quads Abdomen is tender to palpation X 4 quads. Reports diarrhea, nausea. : No signs and/or symptoms were reported regarding the genitourinary system. EENT: No signs and/or symptoms were reported regarding the EENT system. Derm: Skin is pink, warm \T\ dry. Musculoskeletal: No signs and/or symptoms reported regarding the musculoskeletal system. 13:30 Reassessment: Pt rates pain 0/10 at this time. Patient states feeling better. Patient jl7 states symptoms have improved. Vital Signs: 12:46 BP 130 / 87; Pulse 84; Resp 16; Temp 98.4; Pulse Ox 98% on R/A; Pain 8/10; iw 13:21 BP 145 / 76; Pulse 93; Resp 16 S; Pulse Ox 92% on R/A; Pain 8/10; jl7 13:30 Pain 0/10; jl7 14:00 BP 119 / 63; Pulse 87; Resp 16 S; Pulse Ox 95% on R/A; Pain 0/10; jl7 ED Course: 12:15 Patient arrived in ED. as 12:35 Merlin Garza PA is PHCP. jm 12:35 Anselmo Osman MD is Attending Physician. jm 12:46 Triage completed. iw 12:51 Lorena Messer, TESS is Primary Nurse. jl7 12:54 Patient maintains SpO2 saturation greater than 95% on room air. jp3 12:54 Initial lab(s) drawn, by oh, sent to lab. Urine collected: clean catch specimen, clear, jp3 tiffanie colored. Inserted saline lock: 20 gauge in right antecubital area, using aseptic technique. Blood collected. 12:57 Patient has correct armband on for positive identification. Bed in low position. Call jp3 light in reach. Side rails up X 1. Warm blanket given. Verbal reassurance given. Pulse ox on. NIBP on. 12:58 Basic Metabolic Panel Sent. jp3 12:58 CBC with Diff Sent. jp3 12:58 Creatinine for Radiology Sent. jp3 12:58 Hepatic Function Sent. jp3 12:58 Lipase Sent. jp3 13:00 Arm band placed on right wrist. jl7 13:41 CT completed. Patient tolerated procedure well. Patient moved back from CT. mw3 13:42 CT Abd/Pelvis - IV Contrast Only In Process Unspecified. EDMS 15:20 Huy Knight MD is Referral Physician. [facility] 15:43 No provider procedures requiring assistance completed. IV discontinued, intact, jl7 bleeding controlled, No redness/swelling at site. Pressure dressing applied. Administered Medications: 13:00 Drug: NS 0.9% 1000 ml Route: IV; Rate: 1 bolus; Site: right antecubital; jl7 15:44 Follow up: Response: No adverse reaction; IV Status: Completed infusion; IV Intake: jl7 950ml 13:01 Drug: Zofran 4 mg Route: IVP; Site: right antecubital; jl7 13:30 Follow up: Response: No adverse reaction; Nausea is decreased jl7 13:03 Drug: morphine 4 mg Route: IVP; Site: right antecubital; jl7 13:30 Follow up: Pain 0/10 Adult; Response: No adverse reaction; Pain is decreased jl7 14:24 Drug: LevaQUIN 750 mg Route: PO; jl7 15:13 Follow up: Response: No adverse reaction jl7 14:24 Drug: Flagyl 500 mg Route: PO; jl7 15:13 Follow up: Response: No adverse reaction jl7 15:13 Drug: Promethazine 12.5 mg Route: IVP; Site: right antecubital; jl7 15:35 Follow up: Response: No adverse reaction; Nausea is decreased jl7 Intake: 15:44 IV: 950ml; Total: 950ml. jl7 Outcome: 15:20 Discharge ordered by . [facility] 15:43 Discharged to home ambulatory, with family. jl7 15:43 Condition: stable 15:43 Discharge instructions given to patient, family, Instructed on discharge instructions, follow up and referral plans. medication usage, Demonstrated understanding of instructions, follow-up care, medications, Prescriptions given X 4. 15:45 Patient left the ED. jl7 Signatures: Dispatcher [employer] EDMS Merlin Garza PA PA jmm Martinez, Amelia as Williams, Irene, RN RN iw Leal, Jahala, RN RN jl7 Catherine Meza mw3 Sadi Bruno jp3
== END 2019-02-11 15:45 | disposition home or self-care (01) ==
LOC: ER 12:11
DX: K57.92 Diverticulitis of intestine, part unspecified, without perforation or abscess without bleeding (principal)
CPT/HCPCS: 96361; 85025; 80048; 36415; 81025; 80076; 81003; 83690; 74177; 96375; 96374; 99285; Q9967; J2550; J7030; J2405

== ENCOUNTER 2019-06-08 23:47 | Emergency (ER) | payer OTHER ==
[2019-06-09 00:43] LABS: Urine Glucose 2+ (NEG); Urine Specific Gravity 1.025 (1.005-1.030)
[2019-06-09 00:44] LABS: Urine Blood NEGATIVE (NEG); Urine Protein NEGATIVE (NEG); Urine pH 6.5 (5.0-7.0)
[2019-06-09] MEDS ORDERED: KETOROLAC 30 MG/ML INJ ONE (01:05)
[2019-06-09] MEDS ORDERED: FENTANYL CITR 100 MCG/2 ML ONE (01:05)
[2019-06-09 01:10] LABS: Urine Bacteria <20 /HPF (<20); Urine Culture Reflex Order NOT NEEDED; Urine RBC NONE SEEN /HPF (NONE SEEN)
--- NOTE | 2019-06-09 02:46 | ER ---
Nurse's Notes [facility] Name: Catherine Rockwell Age: 49 yrs Sex: Female : 1970 Arrival Date: 06/08/2019 Time: 23:53 Bed 1 Private MD: Diagnosis: Diverticulitis of small intestine without perforation or abscess without bleeding;Fistula of intestine Presentation: 06/09 00:19 Presenting complaint: Patient states: she has been having pressure on her bladder since bb yesterday feels like a UTI. Transition of care: patient was not received from another setting of care. Onset of symptoms was June 07, 2019. Risk Assessment: Do you want to hurt yourself or someone else? Patient reports no desire to harm self or others. Initial Sepsis Screen: Does the patient meet any 2 criteria? No. Patient's initial sepsis screen is negative. Does the patient have a suspected source of infection? No. Patient's initial sepsis screen is negative. Care prior to arrival: None. 00:19 Method Of Arrival: Ambulatory bb 00:19 Acuity: RIVERA 4 bb Triage Assessment: 00:21 General: Appears uncomfortable, Behavior is calm, cooperative. Pain: Complains of pain bb in suprapubic area Pain currently is 8 out of 10 on a pain scale. Neuro: Level of Consciousness is awake, alert, obeys commands, Oriented to person, place, time, situation. Cardiovascular: No deficits noted. Respiratory: Respiratory effort is even, unlabored, Respiratory pattern is regular. GI: Reports lower abdominal pain. : Reports burning with urination. Derm: Skin is pink, warm \T\ dry. Musculoskeletal: Circulation, motion, and sensation intact. 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 - Social history:: Smoking status: Patient uses tobacco products, denies chronic smoking, but will smoke occasionally. - Ebola Screening: : No symptoms or risks identified at this time. Screenin:23 Abuse screen: Denies threats or abuse. Nutritional screening: No deficits noted. bb Tuberculosis screening: No symptoms or risk factors identified. Fall Risk None identified. Assessment: 00:23 Reassessment: No changes from previously documented assessment. see triage note. bb 01:30 Reassessment: pt appears to be sleeping, eyes closed, resp unlabored, awaiting results bb of CT scan. 03:08 Reassessment: Patient is alert, oriented x 3, equal unlabored respirations, skin bb warm/dry/pink. pt verbalized understanding of and agrees to plan of care discharge instructions given pt ambulated with steady gait to exit accompanied by spouse. Vital Signs: 00:21 BP 118 / 87; Pulse 101; Resp 16 S; Temp 98.5(O); Pulse Ox 98% on R/A; Weight 95.25 kg bb (R); Height 5 ft. 3 in. (160.02 cm) (R); Pain 8/10; 03:09 BP 96 / 56; Pulse 90; Resp 14 S; Temp 98.7(O); Pulse Ox 96% on R/A; bb 00:21 Body Mass Index 37.20 (95.25 kg, 160.02 cm) bb ED Course: 06/08 23:53 Patient arrived in ED. cl3 12 00:08 Ari[facility] Whitfield [facility]-C [facility]. snw 00:08 Anselmo Osman MD is Attending Physician. snw 00:19 Pita Gray, TESS is Primary Nurse. bb 00:19 Urine Culture Sent. ar5 00:19 Urine Microscopic Only Sent. ar5 00:20 Triage completed. bb 00:21 Arm band placed on Patient placed in an exam room, on a stretcher, on pulse oximetry. bb Family accompanied patient. 00:23 Urine collected: clean catch specimen. bb 00:23 Patient has correct armband on for positive identification. Bed in low position. Call bb light in reach. 02:02 CT Stone Protocol In Process Unspecified. EDMS 02:44 Huy Knight MD is Referral Physician. snw 03:11 No provider procedures requiring assistance completed. Patient did not have IV access bb during this emergency room visit. Administered Medications: 01:17 Drug: fentaNYL (PF) 25 mcg {Note: RASS 0.} Route: IM; Site: right gluteus; bb 02:23 Follow up: Response: No adverse reaction; Pain is decreased bb 02:23 Follow up: Response: RASS: Drowsy (-1) bb 01:17 Drug: TORadol 30 mg Route: IM; Site: right deltoid; bb 02:23 Follow up: Response: No adverse reaction; Pain is decreased bb 02:52 CANCELLED (Duplicate Order): Phenergan 12.5 mg IVP once snw 03:00 Drug: Cipro 500 mg Route: PO; bb 03:10 Follow up: Response: No adverse reaction bb 03:00 Drug: Doxycycline 100 mg Route: PO; bb 03:10 Follow up: Response: No adverse reaction bb 03:00 Drug: Phenergan 25 mg Route: IM; Site: left gluteus; bb 03:10 Follow up: Response: No adverse reaction bb 03:08 Not Given (Patient Refused): Tylenol #3 (300 mg-30 mg) 1 tablet PO once; RASS on ADMIN: bb Combtv4, Very Agttd3, Agttd2, Rstlss1, AlertClm0, Drwsy-1, Lt Sdtn-2, Mod Sdtn-3, Dp Sdtn-4, UnArsble-5 Outcome: 02:45 Discharge ordered by . snw 03:11 Discharged to home ambulatory, with family. bb 03:11 Condition: stable 03:11 Discharge instructions given to patient, family, Instructed on discharge instructions, follow up and referral plans. medication usage, Demonstrated understanding of instructions, follow-up care, medications, Prescriptions given X 4. 03:11 Patient left the ED. bb Signatures: Dispatcher [employer] EDArielle Kunz, MARCIAL GUSMANP-Pita Ford, RN RN Barbara Pritchard ar5 Hector Brown cl3
--- NOTE | 2019-06-09 02:47 | EDPHYS ---
Physician Documentation [facility] Name: Catherine Rockwell Age: 49 yrs Sex: Female : 1970 Arrival Date: 06/08/2019 Time: 23:53 Bed 1 Private MD: ED Physician Anselmo Osman HPI: 06/09 01:08 This 49 yrs old Female presents to ER via Ambulatory with complaints of Pain snw With Urination. 01:08 Onset: The symptoms/episode began/occurred gradually, 3 week(s) ago, and became worse snw this morning, started having dysuria, and became persistent. Associated signs and symptoms: Pertinent positives: The patient does not have any pertinent positive signs or symptoms associated with pediatric illness. The patient has experienced similar episodes in the past. It is unknown whether or not the patient has recently seen a physician. 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 - Social history:: Smoking status: Patient uses tobacco products, denies chronic smoking, but will smoke occasionally. - Ebola Screening: : No symptoms or risks identified at this time. ROS: 01:06 Constitutional: Negative for fever, chills, and weight loss, Eyes: Negative for injury, snw pain, redness, and discharge, ENT: Negative for injury, pain, and discharge, Neck: Negative for injury, pain, and swelling, Cardiovascular: Negative for chest pain, palpitations, and edema, Respiratory: Negative for shortness of breath, cough, wheezing, and pleuritic chest pain, Abdomen/GI: positive for abdominal pain, negative for nausea, vomiting, diarrhea, and constipation, Back: Negative for injury and pain, : Negative for injury, bleeding, discharge, and swelling, suprapubic pressure MS/Extremity: Negative for injury and deformity, Skin: Negative for injury, rash, and discoloration, Neuro: Negative for headache, weakness, numbness, tingling, and seizure. Exam: 01:06 Constitutional: This is a well developed, well nourished patient who is awake, alert, snw and in no acute distress. Head/Face: Normocephalic, atraumatic. Eyes: Pupils equal round and reactive to light, extra-ocular motions intact. Lids and lashes normal. Conjunctiva and sclera are non-icteric and not injected. Cornea within normal limits. Periorbital areas with no swelling, redness, or edema. ENT: Nares patent. No nasal discharge, no septal abnormalities noted. Tympanic membranes are normal and external auditory canals are clear. Oropharynx with no redness, swelling, or masses, exudates, or evidence of obstruction, uvula midline. Mucous membranes moist. Neck: Trachea midline, no thyromegaly or masses palpated, and no cervical lymphadenopathy. Supple, full range of motion without nuchal rigidity, or vertebral point tenderness. No Meningismus. Chest/axilla: Normal chest wall appearance and motion. Nontender with no deformity. No lesions are appreciated. Cardiovascular: Regular rate and rhythm with a normal S1 and S2. No gallops, murmurs, or rubs. Normal PMI, no JVD. No pulse deficits. Respiratory: Lungs have equal breath sounds bilaterally, clear to auscultation and percussion. No rales, rhonchi or wheezes noted. No increased work of breathing, no retractions or nasal flaring. Back: No spinal tenderness. No costovertebral tenderness. Full range of motion. Skin: Warm, dry with normal turgor. Normal color with no rashes, no lesions, and no evidence of cellulitis. MS/ Extremity: Pulses equal, no cyanosis. Neurovascular intact. Full, normal range of motion. Neuro: Awake and alert, GCS 15, oriented to person, place, time, and situation. Cranial nerves II-XII grossly intact. Motor strength 5/5 in all extremities. Sensory grossly intact. Cerebellar exam normal. Normal gait. Psych: Awake, alert, with orientation to person, place and time. Behavior, mood, and affect are within normal limits. 01:06 Abdomen/GI: Inspection: obese Bowel sounds: normal, Palpation: moderate abdominal tenderness, in the suprapubic area. Vital Signs: 00:21 BP 118 / 87; Pulse 101; Resp 16 S; Temp 98.5(O); Pulse Ox 98% on R/A; Weight 95.25 kg bb (R); Height 5 ft. 3 in. (160.02 cm) (R); Pain 8/10; 03:09 BP 96 / 56; Pulse 90; Resp 14 S; Temp 98.7(O); Pulse Ox 96% on R/A; bb 00:21 Body Mass Index 37.20 (95.25 kg, 160.02 cm) bb MDM: 00:19 Patient medically screened. snw 02:48 Data reviewed: vital signs, nurses notes. Data interpreted: Pulse oximetry: on room air snw is 98 %. Interpretation: normal. Counseling: I had a detailed discussion with the patient and/or guardian regarding: the historical points, exam findings, and any diagnostic results supporting the discharge/admit diagnosis, radiology results, the need for outpatient follow up, to return to the emergency department if symptoms worsen or persist or if there are any questions or concerns that arise at home. Special discussion: Based on the patient's Hx, exam, and Dx evaluation, there is no indication for emergent surgery or inpatient Tx. It is understood by the patient/guardian that if the Sx's persist or worsen they need to return immediately for re-evaluation. I have referred the patient to see his PCP for further evaluation of high blood pressure. Based on the history and exam findings, there is no indication for further emergent testing or inpatient evaluation. I discussed with the patient/guardian the need to see the family support worker for further evaluation of the symptoms. I discussed with the patient/guardian the need to see the general surgeon for further evaluation of the symptoms. I discussed with the patient/guardian the need to see the primary care provider for further evaluation of the symptoms. 06/09 00:08 Order name: Urine Culture snw 06/09 00:08 Order name: Urine Microscopic Only; Complete Time: 01:09 snw 06/09 00:20 Order name: Urine Dipstick--Ancillary (enter results); Complete Time: 00:43 ar5 06/09 00:20 Order name: Urine --Ancillary (enter results); Complete Time: 00:43 ar5 06/09 01:11 Order name: CT Stone Protocol snw 06/09 00:08 Order name: Urine Dipstick-Ancillary (obtain specimen); Complete Time: 00:18 snw Administered Medications: 01:17 Drug: fentaNYL (PF) 25 mcg {Note: RASS 0.} Route: IM; Site: right gluteus; bb 02:23 Follow up: Response: No adverse reaction; Pain is decreased bb 02:23 Follow up: Response: RASS: Drowsy (-1) bb 01:17 Drug: TORadol 30 mg Route: IM; Site: right deltoid; bb 02:23 Follow up: Response: No adverse reaction; Pain is decreased bb 02:52 CANCELLED (Duplicate Order): Phenergan 12.5 mg IVP once snw 03:00 Drug: Cipro 500 mg Route: PO; bb 03:10 Follow up: Response: No adverse reaction bb 03:00 Drug: Doxycycline 100 mg Route: PO; bb 03:10 Follow up: Response: No adverse reaction bb 03:00 Drug: Phenergan 25 mg Route: IM; Site: left gluteus; bb 03:10 Follow up: Response: No adverse reaction bb 03:08 Not Given (Patient Refused): Tylenol #3 (300 mg-30 mg) 1 tablet PO once; RASS on ADMIN: bb Combtv4, Very Agttd3, Agttd2, Rstlss1, AlertClm0, Drwsy-1, Lt Sdtn-2, Mod Sdtn-3, Dp Sdtn-4, UnArsble-5 Disposition: 06/09/19 02:45 Discharged to Home. Impression: Diverticulitis of small intestine without perforation or abscess without bleeding, Fistula of intestine. - Condition is Stable. - Discharge Instructions: Clear Liquid Diet, Adult, Diverticulitis. - Prescriptions for Cipro 500 mg Oral Tablet - take 1 tablet by ORAL route every 12 hours for 10 days; 20 tablet. Tylenol- Codeine #3 300-30 mg Oral Tablet - take 2 tablets by ORAL route every 6 hours As needed; 20 tablet. Doxycycline Hyclate 100 mg Oral Tablet - take 1 tablet by ORAL route every 12 hours; 20 tablet. promethazine 25 mg Oral Tablet - take 1 tablet by ORAL route every 6 hours As needed; 20 tablet. - Medication Reconciliation Form, Thank You Letter, Antibiotic Education, Prescription Opioid Use form. - Follow up: Emergency Department; When: As needed; Reason: Worsening of condition. Follow up: Huy Knight MD; When: 2 - 3 days; Reason: Recheck today's complaints, Continuance of care. Addendum: 06/11/2019 09:24 Co-signature as Attending Physician, Anselmo Osman MD I agree with the assessment and c streeter plan of care. Signatures: Dispatcher [employer] EDMS Anselmo Osman MD MD cha Therrien, Shelly, PRODUCT PICKER-C PRODUCT PICKER-Csnw Pita Gray, RN RN bb Corrections: (The following items were deleted from the chart) 06/09 02:52 02:51 Phenergan 12.5 mg IVP once ordered. snw snw 03:11 02:45 06/09/2019 02:45 Discharged to Home. Impression: Diverticulitis of small bb intestine without perforation or abscess without bleeding; Fistula of intestine. Condition is Stable. Forms are Medication Reconciliation Form, Thank You Letter, Antibiotic Education, Prescription Opioid Use. Follow up: Emergency Department; When: As needed; Reason: Worsening of condition. Follow up: Huy Knight; When: 2 - 3 days; Reason: Recheck today's complaints, Continuance of care. snw
[2019-06-09] MEDS ORDERED: PROMETHAZINE 25 MG/ML VIAL ONE (03:01)
[2019-06-09 03:59] VITALS: BP 96/56; TEMP 98.7; O2SAT 96
--- NOTE | 2019-06-12 15:14 | RAD REPORT ---
EXAM DESCRIPTION: CT - Stone Protocol - 06/09/2019 6:14 am COMPARISON: None Indication: Abdominal pain TECHNIQUE: Multiple helical axial images were obtained through the abdomen and pelvis without intrav enous contrast. Sagittal and coronal reformatted images are reviewed as well. All CT scans at this facility use dose modulation, iterative reconstruction, and/or weight-based dosi ng when appropriate to reduce radiation dose to as low as reasonably achievable. FINDINGS: Lung bases: Unremarkable. Liver: Low-attenuation is present suggestive of fatty changes. Gallbladder/biliary: Cholecystectomy changes are present. No evidence of biliary ductal dilatation. Pancreas: Unremarkable. Spleen: Unremarkable. Adrenals: Unremarkable. Kidneys and ureters: No evidence of renal or ureteral stones. No hydronephrosis. Bladder: Unremarkable. Pelvic organs: Post hysterectomy changes are present. Bowel: Colonic diverticula are present. A portion of the mid sigmoid colon appears thickened with adj acent stranding suggestive of diverticulitis. No evidence of abscess. Probable fistulous communicatio n from the thickened sigmoid colon to the bladder dome is again noted. No evidence of bowel obstructi on. Appendix appears unremarkable. Peritoneum: No free air. No significant free fluid. Lymph nodes: Unremarkable. Vasculature: Unremarkable. Soft tissues: Unremarkable. Bones: Unremarkable. IMPRESSION: Sigmoid colon diverticulitis with probable fistulous communication to the bladder dome. Electronically signed by: Vijay Eaton MD 06/09/2019 2:36 AM [employer] AND B[employer] ARTIST Due to temporary technical issues with the PACS/Fluency reporting system, reports are being signed by the in house radiologist as a courtesy to ensure prompt reporting. The interpreting radiologist is f ully responsible for the content of the report.
== END 2019-06-09 03:11 | disposition home or self-care (01) ==
LOC: ER 23:47
DX: K57.12 Diverticulitis of small intestine without perforation or abscess without bleeding (principal); K63.2 Fistula of intestine; Z72.0 Tobacco use
CPT/HCPCS: 87088; 87086; 81025; 76377; 74176; 96372; 99284; J2550; J3010; 81003; 81015

== ENCOUNTER 2019-09-02 10:52 | Inpatient (IN) | payer OTHER ==
[2019-09-02] MEDS ORDERED: MORPHINE 4 MG/ML SYR ONE (11:59)
[2019-09-02] MEDS ORDERED: NA CHLORIDE 0.9% 1,000 ML ONE (12:00)
[2019-09-02] MEDS ORDERED: METRONIDAZOLE 500mg IVPB 500 MG/100 ML BAG IV ONE (12:00)
[2019-09-02] MEDS ORDERED: ONDANSETRON 4 MG/2 ML VIAL ONE ×2 (12:00→14:10)
[2019-09-02] MEDS ORDERED: CIPROFLOXACIN 400mg IV 400 MG/200 ML BAG IV ONE (12:00)
[2019-09-02] MEDS ORDERED: CEFTRIAXONE/SWI 1gm 1 GM/10 ML SYR ONE (12:00)
[2019-09-02 12:04] LABS: Absolute Lymphocytes (CBC) 2.5 K/uL (0.7-4.9); Basophils % 0.7 % (0-1.3); Hematocrit 44.8 % (36.0-45.0); Lymphocytes % 19.2 % (15.3-44.8); MPV 8.5 fL (7.6-11.3); RBC Red Blood Cell Count 5.06 M/uL (3.86-4.86)
[2019-09-02 12:19] LABS: Albumin 3.9 g/dL (3.4-5.0); Bilirubin Direct 0.2 mg/dL (0-0.2); Bilirubin Total 0.6 mg/dL (0.2-1.0); Potassium 3.9 mmol/L (3.5-5.1); Protein, Total 7.9 g/dL (6.4-8.2)
[2019-09-02] MEDS ORDERED: FENTANYL CITR 100 MCG/2 ML ONE (12:40)
[2019-09-02 13:04] LABS: Urine Blood 2+ (NEG); Urine Glucose NEGATIVE (NEG); Urine Protein NEGATIVE (NEG)
--- NOTE | 2019-09-02 13:51 | RAD REPORT ---
EXAM DESCRIPTION: CTAbdomen Pelvis W Contrast - 09/02/2019 1:39 pm CLINICAL HISTORY: Abdominal pain. ABD PAIN COMPARISON: Abdomen Pelvis W Contrast dated 02/11/2019; Abdomen Pelvis W Contrast dated 01/04/2019; Abdomen Pelvis W Contrast dated 03/13/2018 TECHNIQUE: Biphasic CT imaging of the abdomen and pelvis was performed with 100 ml non-ionic IV cont rast. All CT scans are performed using dose optimization technique as appropriate and may include automated exposure control or mA/KV adjustment according to patient size. FINDINGS: The lung bases are clear.Cholecystectomy clips. The liver demonstrates diffuse fatty infiltration. The spleen, pancreas, adrenal glands and kidneys a re within normal limits. No bowel obstruction, free air, free fluid or abscess. Sigmoid diverticulosis coli is present with mi ld inflammation surrounding the diverticula compatible with mild acute diverticulitis. A fistulous co nnection is seen between the sigmoid colon in the anterior superior aspect of the urinary bladder. Th e appendix is normal. No evidence of significant lymphadenopathy. No suspicious bony findings. IMPRESSION: Mild sigmoid acute diverticulitis is present. 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 Fatty liver.
[2019-09-02] MEDS ORDERED: HYDROMORPHONE HCL 1 MG/ML INJ ONE (14:10)
--- NOTE | 2019-09-02 14:29 | EDPHYS ---
Physician Documentation [facility] Name: Catherine Herring Age: 49 yrs Sex: Female : 1970 Arrival Date: 09/02/2019 Time: 10:55 Bed 8 Private MD: Anselmo Fernandes HPI: 09/01 11:37 This 49 yrs old Female presents to ER via Ambulatory with complaints of edel Urinary Problem, Abdominal Cramping. 11:37 The patient presents with abdominal pain in the lower abdomen, abdominal distention in edel the upper abdomen, in the lower abdomen. Onset: The symptoms/episode began/occurred 3 day(s) ago. The patient presents with urinary symptoms, dysuria, frequency, urgency. Onset: The symptoms/episode began/occurred 3 day(s) ago. Modifying factors: The symptoms are alleviated by nothing, the symptoms are aggravated by nothing. Associated signs and symptoms: Pertinent positives: nausea, urinary frequency. Severity of symptoms: At their worst the symptoms were moderate, in the emergency department the symptoms are unchanged. The patient is sexually active, reportedly has a single partner. 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 - Social history:: Smoking status: Patient reports the use of cigarette tobacco products, denies chronic smoking, but will smoke occasionally. - Family history:: not pertinent. ROS: 11:37 Constitutional: Negative for fever, chills, and weight loss, Eyes: Negative for injury, edel pain, redness, and discharge, ENT: Negative for injury, pain, and discharge, Neck: Negative for injury, pain, and swelling, Cardiovascular: Negative for chest pain, palpitations, and edema, Respiratory: Negative for shortness of breath, cough, wheezing, and pleuritic chest pain, Back: Negative for injury and pain, MS/Extremity: Negative for injury and deformity, Skin: Negative for injury, rash, and discoloration, Neuro: Negative for headache, weakness, numbness, tingling, and seizure, Psych: Negative for depression, anxiety, suicide ideation, homicidal ideation, and hallucinations, Allergy/Immunology: Negative for hives, rash, and allergies, Endocrine: Negative for neck swelling, polydipsia, polyuria, polyphagia, and marked weight changes, Hematologic/Lymphatic: Negative for swollen nodes, abnormal bleeding, and unusual bruising. 11:37 Abdomen/GI: Positive for abdominal pain, of the right lower quadrant and left lower quadrant. Exam: 11:37 Constitutional: This is a well developed, well nourished patient who is awake, alert, edel and in no acute distress. Head/Face: Normocephalic, atraumatic. Eyes: Pupils equal round and reactive to light, extra-ocular motions intact. Lids and lashes normal. Conjunctiva and sclera are non-icteric and not injected. Cornea within normal limits. Periorbital areas with no swelling, redness, or edema. ENT: Nares patent. No nasal discharge, no septal abnormalities noted. Tympanic membranes are normal and external auditory canals are clear. Oropharynx with no redness, swelling, or masses, exudates, or evidence of obstruction, uvula midline. Mucous membranes moist. Neck: Trachea midline, no thyromegaly or masses palpated, and no cervical lymphadenopathy. Supple, full range of motion without nuchal rigidity, or vertebral point tenderness. No Meningismus. Chest/axilla: Normal chest wall appearance and motion. Nontender with no deformity. No lesions are appreciated. Cardiovascular: Regular rate and rhythm with a normal S1 and S2. No gallops, murmurs, or rubs. Normal PMI, no JVD. No pulse deficits. Respiratory: Lungs have equal breath sounds bilaterally, clear to auscultation and percussion. No rales, rhonchi or wheezes noted. No increased work of breathing, no retractions or nasal flaring. Back: No spinal tenderness. No costovertebral tenderness. Full range of motion. Female : Normal external genitalia. Skin: Warm, dry with normal turgor. Normal color with no rashes, no lesions, and no evidence of cellulitis. MS/ Extremity: Pulses equal, no cyanosis. Neurovascular intact. Full, normal range of motion. Neuro: Awake and alert, GCS 15, oriented to person, place, time, and situation. Cranial nerves II-XII grossly intact. Motor strength 5/5 in all extremities. Sensory grossly intact. Cerebellar exam normal. Normal gait. 11:37 Abdomen/GI: Inspection: distension, that is moderate, in the right lower quadrant and left lower quadrant, Bowel sounds: normal, Liver: no appreciated palpable abnormalities, Hernia: not appreciated. Vital Signs: 11:06 BP 98 / 53; Pulse 102; Resp 18; Temp 98.4(O); Pulse Ox 96% on R/A; Weight 95.25 kg; iw Height 5 ft. 3 in. (160.02 cm); Pain 8/10; 13:00 BP 122 / 87; Pulse 88; Resp 18 S; Pulse Ox 99% on R/A; aa5 14:06 BP 105 / 63; Pulse 106; Resp 20 S; Pulse Ox 96% on R/A; aa5 15:00 BP 108 / 77; Pulse 102; Resp 16 S; Pulse Ox 97% on R/A; aa5 16:00 BP 111 / 61; Pulse 98; Resp 16 S; Pulse Ox 99% on R/A; aa5 11:06 Body Mass Index 37.20 (95.25 kg, 160.02 cm) iw MDM: 11:11 Patient medically screened. [facility] 11:39 Data reviewed: vital signs, nurses notes, lab test result(s), radiologic studies, CT edel scan. 09/01 11:28 Order name: Urine Dipstick--Ancillary (enter results); Complete Time: 14:21 fl 09/01 11:28 Order name: Urine --Ancillary (enter results); Complete Time: 14:21 fl 09/01 11:35 Order name: Basic Metabolic Panel; Complete Time: 12:30 [facility] 09/01 11:35 Order name: CBC with Diff; Complete Time: 12:30 [facility] 09/01 11:35 Order name: Creatinine for Radiology; Complete Time: 12:30 [facility] 09/01 11:35 Order name: Hepatic Function; Complete Time: 12:30 [facility] 09/01 11:35 Order name: Lipase; Complete Time: 12:30 [facility] 09/01 11:35 Order name: Urine Culture [facility] 09/01 11:36 Order name: CT Abd/Pelvis - PO and IV Contrast; Complete Time: 14:21 [facility] 09/01 11:35 Order name: IV Saline Lock; Complete Time: 11:58 [facility] 09/01 11:35 Order name: Labs collected and sent; Complete Time: 11:58 edel Administered Medications: 12:00 Drug: NS 0.9% 1000 ml Route: IV; Rate: 1 bolus; Site: right antecubital; aa5 12:00 Drug: Zofran (Ondansetron) 4 mg Route: IVP; Site: right antecubital; aa5 12:10 Follow up: Response: No adverse reaction aa5 12:02 Drug: morphine 4 mg Route: IVP; Site: right antecubital; aa5 12:10 Follow up: Response: No adverse reaction aa5 12:06 Drug: Rocephin 1 grams Route: IV; Rate: per protocol; Site: right antecubital; aa5 12:15 Follow up: Response: No adverse reaction aa5 12:15 Drug: Flagyl 500 mg Volume: 100 ml; Route: IVPB; Rate: 200 ml/hr; Infused Over: 30 aa5 mins; Site: right antecubital; 12:45 Follow up: Response: No adverse reaction; IV Status: Completed infusion aa5 12:55 Drug: Cipro 400 mg Volume: 200 ml; Route: IVPB; Infused Over: 60 mins; Site: right aa5 antecubital; 13:55 Follow up: Response: No adverse reaction; IV Status: Completed infusion aa5 12:55 Drug: fentaNYL (PF) 50 mcg Route: IVP; Site: right antecubital; aa5 13:05 Follow up: Response: No adverse reaction; Pain is decreased aa5 14:06 Drug: Dilaudid 1 mg Route: IVP; Site: right antecubital; aa5 14:20 Follow up: Response: No adverse reaction; Pain is decreased aa5 14:06 Drug: Zofran (Ondansetron) 4 mg Route: IVP; Site: right antecubital; aa5 14:20 Follow up: Response: No adverse reaction aa5 Disposition: 09/02/19 14:28 Hospitalization ordered by David Vidal for Inpatient Admission. Preliminary diagnosis are Diverticular disease of intestine, Diverticulitis of small intestine without perforation or abscess without bleeding, Elevated white blood cell count, Fever, unspecified. - Bed requested for Telemetry/MedSurg (Inpatient). - Status is Inpatient Admission. aa5 - Condition is Stable. - Problem is new. - Symptoms have improved. Signatures: Dispatcher [employer] EDAnselmo Monson MD MD cha Williams, Irene, RN TESS Viviana Frances ms Nneka Hunter, RN RN aa5 Corrections: (The following items were deleted from the chart) 15:37 14:28 Hospitalization Ordered by David Vidal for Inpatient Admission. Preliminary ms diagnosis is Diverticular disease of intestine; Diverticulitis of small intestine without perforation or abscess without bleeding; Elevated white blood cell count; Fever, unspecified. Bed requested for Telemetry/MedSurg (Inpatient). Status is Inpatient Admission. Condition is Stable. Problem is new. Symptoms have improved. [facility] 17:03 15:37 09/02/2019 14:28 Hospitalization Ordered by David Vidal for Inpatient aa5 Admission. Preliminary diagnosis is Diverticular disease of intestine; Diverticulitis of small intestine without perforation or abscess without bleeding; Elevated white blood cell count; Fever, unspecified. Bed requested for Telemetry/MedSurg (Inpatient). Status is Inpatient Admission. Condition is Stable. Problem is new. Symptoms have improved. ms
--- NOTE | 2019-09-02 14:29 | ER ---
Nurse's Notes [facility] Name: Catherine Herring Age: 49 yrs Sex: Female : 1970 Arrival Date: 09/02/2019 Time: 10:55 Bed 8 Private MD: Diagnosis: Diverticular disease of intestine;Diverticulitis of small intestine without perforation or abscess without bleeding;Elevated white blood cell count;Fever, unspecified Presentation: 09/01 11:06 Chief complaint: Patient states: feels like she has really bad UTI,has hx of a fistula iw and was told that if she ever has air coming out of her vagina to come to ER , is also having pain with urination X 3 days and has urgency , feels constipated. Coronavirus screen: The patient has NOT traveled to [place] in the past 14 days. Proceed with normal triage procedures. Ebola Screen: Patient negative for fever greater than or equal to 101.5 degrees Fahrenheit, and additional compatible Ebola Virus Disease symptoms Patient denies exposure to infectious person. Patient denies travel to an Ebola-affected area in the 21 days before illness onset. No symptoms or risks identified at this time. Initial Sepsis Screen: Does the patient meet any 2 criteria? No. Patient's initial sepsis screen is negative. Does the patient have a suspected source of infection?. Risk Assessment: Do you want to hurt yourself or someone else? Patient reports no desire to harm self or others. 11:06 Method Of Arrival: Ambulatory iw 11:06 Acuity: RIVERA 3 iw STRATEGIC SOURCING CONSULTANT: 11:09 LMP N/A - Hysterectomy iw Historical: - Allergies: 11:09 No Known Allergies; iw - Home Meds: 11:09 Adderall XR Oral [Active]; iw - PMHx: 11:09 Diverticulitis; iw - PSHx: 11:09 Partial hysterectomy; Tubal ligation; Cholecystectomy; iw - Immunization history:: Adult Immunizations not up to date. - Social history:: Smoking status: Patient reports the use of cigarette tobacco products, denies chronic smoking, but will smoke occasionally. - Family history:: not pertinent. Screenin:15 Abuse screen: Denies threats or abuse. Nutritional screening: No deficits noted. aa5 Tuberculosis screening: No symptoms or risk factors identified. Fall Risk None identified. Assessment: 11:15 General: Appears uncomfortable, Behavior is calm, cooperative. Pain: Complains of pain aa5 in left lower quadrant and right lower quadrant and left lower back Pain currently is 10 out of 10 on a pain scale. Quality of pain is described as sharp, Pain began 2-3 days ago. Is continuous. Neuro: Level of Consciousness is awake, alert, obeys commands, Oriented to person, place, time, situation. Cardiovascular: Heart tones S1 S2 present Rhythm is regular. Respiratory: Airway is patent Respiratory effort is even, unlabored, Respiratory pattern is regular, symmetrical. GI: Abdomen is round non-distended, Bowel sounds present X 4 quads. Abd is soft X 4 quads Abdomen is tender to palpation in right lower quadrant and left lower quadrant Reports nausea, vomiting. : Reports urinary frequency. EENT: No signs and/or symptoms were reported regarding the EENT system. Derm: Skin is pink, warm \\T\\ dry. Musculoskeletal: Range of motion: intact in all extremities. 12:07 Reassessment: Pt finished CT oral contrast at 1155, CT notified. . aa5 12:25 Reassessment: Patient is alert, oriented x 3, equal unlabored respirations, skin aa5 warm/dry/pink. Pt reports increased abd pain, pt states "the morphine helped but just for little bit and now it's worse". Dr. Osman notified. . 13:05 Reassessment: Patient is alert, oriented x 3, equal unlabored respirations, skin aa5 warm/dry/pink. Pt states "the pain is a little bit better". Awaiting CT scan. . 13:36 Reassessment: Pt in CT . aa5 14:05 Reassessment: Patient states symptoms have not improved. Pt back from CT scan. aa5 Reassessment: Patient is alert, oriented x 3, equal unlabored respirations, skin warm/dry/pink. General: Appears uncomfortable. 14:20 Reassessment: Patient is alert, oriented x 3, equal unlabored respirations, skin aa5 warm/dry/pink. Patient states feeling better. Patient states symptoms have improved. 16:05 Reassessment: Patient is alert, oriented x 3, equal unlabored respirations, skin aa5 warm/dry/pink. Pt notified of room assignment. . 16:05 General: Appears comfortable. aa5 16:10 Reassessment: Unsuccessful attempt to call report to admitting nurse. . aa5 Vital Signs: 11:06 BP 98 / 53; Pulse 102; Resp 18; Temp 98.4(O); Pulse Ox 96% on R/A; Weight 95.25 kg; iw Height 5 ft. 3 in. (160.02 cm); Pain 8/10; 13:00 BP 122 / 87; Pulse 88; Resp 18 S; Pulse Ox 99% on R/A; aa5 14:06 BP 105 / 63; Pulse 106; Resp 20 S; Pulse Ox 96% on R/A; aa5 15:00 BP 108 / 77; Pulse 102; Resp 16 S; Pulse Ox 97% on R/A; aa5 16:00 BP 111 / 61; Pulse 98; Resp 16 S; Pulse Ox 99% on R/A; aa5 11:06 Body Mass Index 37.20 (95.25 kg, 160.02 cm) iw ED Course: 10:55 Patient arrived in ED. as 11:09 Triage completed. iw 11:09 Arm band placed on. iw 11:11 Anselmo Osman MD is Attending Physician. edel 11:15 Patient has correct armband on for positive identification. Bed in low position. Call aa5 light in reach. Side rails up X2. Adult w/ patient. Pulse ox on. NIBP on. 11:22 Nneka Hunter, RN is Primary Nurse. aa5 11:42 Note: PO CONTRAST D/O \\T\\ 11;45. bq 11:55 Initial lab(s) drawn, by az, sent to lab. Inserted saline lock: 20 gauge in right aa5 antecubital area, using aseptic technique. Blood collected. 11:57 Urine collected: clean catch specimen, cloudy, tiffanie colored. jb1 13:40 CT completed. Patient tolerated procedure well. Patient moved back from CT. bq 13:40 CT Abd/Pelvis - PO and IV Contrast In Process Unspecified. EDMS 14:25 David Vidal is Hospitalizing Provider. edel 16:50 No provider procedures requiring assistance completed. Patient admitted, IV remains in aa5 place. Administered Medications: 12:00 Drug: NS 0.9% 1000 ml Route: IV; Rate: 1 bolus; Site: right antecubital; aa5 12:00 Drug: Zofran (Ondansetron) 4 mg Route: IVP; Site: right antecubital; aa5 12:10 Follow up: Response: No adverse reaction aa5 12:02 Drug: morphine 4 mg Route: IVP; Site: right antecubital; aa5 12:10 Follow up: Response: No adverse reaction aa5 12:06 Drug: Rocephin 1 grams Route: IV; Rate: per protocol; Site: right antecubital; aa5 12:15 Follow up: Response: No adverse reaction aa5 12:15 Drug: Flagyl 500 mg Volume: 100 ml; Route: IVPB; Rate: 200 ml/hr; Infused Over: 30 aa5 mins; Site: right antecubital; 12:45 Follow up: Response: No adverse reaction; IV Status: Completed infusion aa5 12:55 Drug: Cipro 400 mg Volume: 200 ml; Route: IVPB; Infused Over: 60 mins; Site: right aa5 antecubital; 13:55 Follow up: Response: No adverse reaction; IV Status: Completed infusion aa5 12:55 Drug: fentaNYL (PF) 50 mcg Route: IVP; Site: right antecubital; aa5 13:05 Follow up: Response: No adverse reaction; Pain is decreased aa5 14:06 Drug: Dilaudid 1 mg Route: IVP; Site: right antecubital; aa5 14:20 Follow up: Response: No adverse reaction; Pain is decreased aa5 14:06 Drug: Zofran (Ondansetron) 4 mg Route: IVP; Site: right antecubital; aa5 14:20 Follow up: Response: No adverse reaction aa5 Outcome: 14:28 Decision to Hospitalize by Provider. edel 16:50 Patient left the ED. aa5 16:50 Admitted to Med/surg accompanied by tech, family with patient, via wheelchair, with aa5 chart, Report called to [facility] [employer] 16:50 Condition: stable 16:50 Instructed on the need for admit, Demonstrated understanding of instructions. Signatures: Dispatcher [employer] EDMS Krishan Casillas jb1 Anselmo Osman MD MD cha Quilty, Betty bq Martinez, Amelia as Williams, Irene, RN RN iw Calderon, Audri, RN RN aa5 Corrections: (The following items were deleted from the chart) 12:08 12:00 Inserted saline lock: 20 gauge in right antecubital area, using aseptic aa5 technique. Blood collected. aa5 12:08 12:00 Initial lab(s) drawn, by me, sent to lab. aa5 aa5 14:12 14:06 Dilaudid 1 mg IVP in left forearm aa5 aa5 14:23 13:05 Reassessment: Patient is alert, oriented x 3, equal unlabored respirations, skin aa5 warm/dry/pink. Pt states "the pain is a little bit better" . aa5 16:17 11:15 Pain: Complains of pain in left lower quadrant and right lower quadrant and left aa5 lower back Pain currently is 10 out of 10 on a pain scale. Quality of pain is described as sharp, Is continuous, aa5 17:04 17:03 Patient left the ED. aa5 aa5
--- NOTE | 2019-09-02 15:28 | P.HP ---
Certification for Inpatient Patient admitted to: Inpatient With expected LOS: >2 Midnights Practitioner: I am a practitioner with admitting privileges, knowledge of patient current condition, hospital course, and medical plan of care. Services: Services provided to patient in accordance with Admission requirements found in Title 42 Section 412.3 of the Code of Federal Regulations Patient History Date of Service: 09/02/19 Reason for admission: Painful urination, abdominal pain History of Present Illness: 49-year-old woman with a history of colovesicular fistula presented to the ED with a complaint of dysuria and increased urinary frequency of about 2 days duration, followed by lower abdominal pain this morning. She also reports nausea and constipation. No diarrhea. She reports low back pain and tenesmus. CT abdomen and pelvis done in the ED reports mild sigmoid diverticulitis. UA suggest no significant evidence of UTI. Patient follows with Dr. Knight who is planning repair of the colovesicular fistula. Dr. Kinght was informed by the ED physician and he recommended admission to the hospitalist service for treatment of acute diverticulitis. He will follow in consult. Allergies No Known Allergies Allergy (Verified 01/04/19 23:35) Home Medications: Dextroamphetamine/Amphetamine [Adderall 5 mg Tablet] 5 mg PO BID 09/02/19 - Past Medical/Surgical History Diabetic: No -: Colovesicular fistula -: Recurrent UTI -: hysterectomy -: tubal ligation -: gallbladder -: ankle surgery - Family History Father Notes: Colon Ulcers Mother -: Diabetes Notes: Diverticulitis - Social History Alcohol use: Yes CD- Drugs: No Caffeine use: Yes Review of Systems Other: Except as documented, all other systems reviewed and negative. Physical Examination - Physical Exam General: Alert, In no apparent distress, Oriented x3 HEENT: Atraumatic, Mucous membr. moist/pink, Sclerae nonicteric Neck: Supple, JVD not distended Respiratory: Clear to auscultation bilaterally Cardiovascular: No edema, Normal pulses, Regular rate/rhythm, Normal S1 S2 Capillary refill: <2 Seconds Gastrointestinal: Normal bowel sounds, Non-distended, No rebound, No guarding, Tenderness (Lower abdomen) Musculoskeletal: No swelling, No erythema Integumentary: No rashes, No erythema Neurological: Normal speech, Normal strength at 5/5 x4 extr - Studies Laboratory Data (last 24 hrs) 09/02/19 11:50: Creatinine 0.97 09/02/19 11:50: WBC 13.2 H, Hgb 14.9, Hct 44.8, Plt Count 307 09/02/19 11:50: Sodium 140, Potassium 3.9, BUN 11, Creatinine 0.97, Glucose 106 , Total Bilirubin 0.6, AST 24, ALT 37, Alkaline Phosphatase 98, Lipase 76 Assessment and Plan - Problems (Diagnosis) (1) Acute diverticulitis Current Visit: Yes Status: Acute (2) Colovesical fistula Current Visit: Yes Status: Acute - Plan Admit to general medical floor Start IV Levaquin and Flagyl IV morphine p.r.n. for pain Follow cultures Consult to Dr. Knight Ice chips for now. May advance diet in a.m. IV hydration. - Advance Directives Does patient have a Living Will: No Does patient have a Durable POA for Healthcare: No
[2019-09-02] MEDS ORDERED: ACETAMINOPHEN 500 MG TAB PO PRN (16:59)
[2019-09-02] MEDS: HEPARIN 5000 UNIT/ML 1 ML VIAL SQ SCH (17:25)
[2019-09-02] MEDS: METRONIDAZOLE 500mg IVPB 500 MG/100 ML BAG IV SCH (17:25)
[2019-09-02] MEDS: NA CHLORIDE 0.9% 1,000 ML IV SCH (17:25)
[2019-09-02] MEDS: Levofloxacin 750mg IV 750 MG/150 ML BAG IV SCH (17:25)
[2019-09-02 17:39] VITALS: BMI 38.2
[2019-09-02] MEDS: MORPHINE 4 MG/ML SYR IV PRN ×2 (17:48→22:41)
[2019-09-02] MEDS: ONDANSETRON 4 MG/2 ML VIAL IV PRN ×2 (17:49→22:49)
[2019-09-02] MEDS ORDERED: INFLUENZA VACCINE (for 3y+) 0.5 ML DOSE IMVAC ONE (21:00)
[2019-09-03] MEDS: METRONIDAZOLE 500mg IVPB 500 MG/100 ML BAG IV SCH ×3 (00:53→17:04)
[2019-09-03] MEDS: HEPARIN 5000 UNIT/ML 1 ML VIAL SQ SCH ×2 (00:53→08:24)
[2019-09-03] MEDS: NA CHLORIDE 0.9% 1,000 ML IV SCH ×4 (02:59→17:03)
[2019-09-03] MEDS: MORPHINE 4 MG/ML SYR IV PRN (05:45)
[2019-09-03 05:53] LABS: Absolute Lymphocytes (CBC) 1.9 K/uL (0.7-4.9); Basophils % 0.4 % (0-1.3); Hematocrit 37.9 % (36.0-45.0); Lymphocytes % 21.4 % (15.3-44.8); MPV 8.7 fL (7.6-11.3); RBC Red Blood Cell Count 4.27 M/uL (3.86-4.86)
[2019-09-03 06:00] LABS: Magnesium 1.9 mg/dL (1.8-2.4); Potassium 3.7 mmol/L (3.5-5.1)
[2019-09-03 06:12] VITALS: O2SAT 96
[2019-09-03] MEDS ORDERED: KCL 20 MEQ/100 mL IVPB 20 MEQ/100 ML BAG IV SCH (08:00)
[2019-09-03] MEDS: ONDANSETRON 4 MG/2 ML VIAL IV PRN (08:36)
--- NOTE | 2019-09-03 13:35 | CON ---
Date of Consultation: 09/03/2019 Brief History Of Present Illness: Patient is a 49-year-old female known to me from previous admissions with a history of chronic diverticulitis and colovesical fistula. She has been treated w ith antibiotics and I referred her to Dr. Gucci Maurice for sigmoid colectomy and takedown of colovesical f istula. However, she had not had the option to go and get this performed at this point. She comes i n with recurrent UTI symptoms on this particular occasion and had minimal abdominal pain to the left lower quadrant, which was resolved essentially at this point. She has been doing well otherwise, oth er than the urinary tract symptoms of frequency, burning, irritation. Past Medical History: Significant for: 1.Sigmoid diverticulitis. 2.Colovesical fistula. 3.Recurrent urinary tract infection secondary to a colovesical fistula. Past Surgical History: Includes hysterectomy, tubal ligation, cholecystectomy, ankle surgery. Allergies: NO KNOWN DRUG ALLERGIES. Home Medications: Include Adderall. She denies smoking, alcohol, or recreational drug use. Review of Systems: 10-point review of systems other than HPI, denies. Physical Examination: Vital Signs: At time of my examination, her vital signs were BMI of 38.3. Her blood pressure 102/60 , pulse is 88, respiratory rate 18, temperature 99.2. General: She is awake, alert, and oriented. Psychiatric: She is appropriate and conversive. HEENT: She is normocephalic. Sclerae anicteric. Mucous membranes are moist. Oropharynx clear. Neck: Supple. No JVD. Chest: Normal expansion and excursion. Cardiovascular: Regular rate and rhythm. Pulmonary: Clear to auscultation bilaterally. Abdomen: Soft, nontender, nondistended. No rebound. No guarding. No focal peritonitis. Left lowe r quadrant is completely benign on abdominal exam. Extremities: No clubbing, cyanosis, or edema. Skin: Warm and dry. Laboratory Data: Reveals a white blood cell count of 8.9, hemoglobin 12.8, hematocrit of 37.9, plate let count is 243. Sodium 142, potassium 3.7, chloride 109, carbon dioxide 27, BUN 10, creatinine 0.8 , glucose is 122. She had 1+ leukocyte esterase and 2+ blood on admission and a negative urine pregn luis test. She additionally had a CT scan performed of the abdomen and pelvis which was officially r ead as mild sigmoid acute diverticulitis present. Colovesical fistula identified between the sigmoid colon, and the anterior superior margin of the urinary bladder and fatty liver. Assessment And Plan: This is a 49-year-old female who presents with colovesical fistula secondary to chronic diverticulitis. 1.IV fluid hydration. 2.Antibiotic coverage. 3.I have explained that we now have the capability of performing this procedure at this particular f acility which would be a laparoscopic, possible open sigmoid colectomy, takedown of colovesical fistu la, possible bladder repair and indicated procedures. Patient therefore will be discharged and I demetrio l discuss the surgical planning in clinic and we will plan for an appropriate time for her to have th is procedure performed. Patient agrees to proceed as indicated. MANDY/MOHAMUD Voice ID: [id number] Report ID: [id number]
[2019-09-03] MEDS ORDERED: MORPHINE 2 MG/ML SYR IV PRN (14:33)
[2019-09-03] MEDS: Levofloxacin 750mg IV 750 MG/150 ML BAG IV SCH (17:04)
--- NOTE | 2019-09-03 19:11 | PN ---
Date of Progress Note: 09/03/2019 Subjective: Patient seen and examined. Chart reviewed and case discussed with RN and Dr. Knight. Patient is still having some minimal abdominal discomfort. Does have some urinary symptoms. Medications: List reviewed. Physical Examination: Vital Signs: Temperature 97, heart rate 95, blood pressure 133/80, respirations 20, O2 95% on room air. General: Awake, alert, oriented x3. Ill-appearing female, obese, in some mild distress due to pain. CV: S1, S2. Regular rate and rhythm. Peripheral pulses present. Respiratory: Moving air well bilaterally. No wheezing or stridor. Gastrointestinal: Abdomen is soft. Mild tenderness to palpation. No rebound or guarding. Positive bowel sounds. Extremities: No clubbing, cyanosis, or edema. Neurologic: Nonfocal. Laboratory Data: Sodium 142, potassium 3.7, chloride 109, CO2 of 27, BUN 10, creatinine 0.84, glucose 122, calcium 8.2, phosphorus 3, magnesium 1.9. WBC 8.9 , H and H 12.8 and 37.9, platelets 243, neutrophils 69%. Blood cultures are pending. Urine culture growing out 100,000 colony-forming units of 3+ gram- negative rods. Assessment: A 49-year-old female with: 1. Acute diverticulitis. We will continue with IV antibiotics. Patient tolerating ice chips. We will start on clear liquid diet and advance to full liquids by tonight. Continue with pain control. Appreciate Dr. Knight's input. Recommend surgery as an outpatient. 2. Colovesicular fistula. 3. Acute cystitis without hematuria secondary to gram-negative rods. Final sensitivity and ID are pending. White blood cell count has improved. Continue IV antibiotics. Likely related to the colovesicular fistula. 4. Obesity, BMI 38. 5. Fatty liver disease Plan: Continue IV antibiotics, IV fluids, and pain medications. We will start on clear liquids and advance as tolerated. Likely discharge in a.m. We will follow up on urine cultures. /MOHAMUD Voice ID: [id number] Report ID: [id number] [facility]IE[facility] MEDICAL CENTERJustyna
[2019-09-03 20:07] LABS: Hematocrit 37.7 % (36.0-45.0)
[2019-09-04] MEDS: METRONIDAZOLE 500mg IVPB 500 MG/100 ML BAG IV SCH ×2 (00:07→08:11)
[2019-09-04 05:58] LABS: Absolute Lymphocytes (CBC) 1.9 K/uL (0.7-4.9); Basophils % 0.7 % (0-1.3); Hematocrit 39.4 % (36.0-45.0); Lymphocytes % 20.8 % (15.3-44.8); MPV 8.8 fL (7.6-11.3); RBC Red Blood Cell Count 4.37 M/uL (3.86-4.86)
[2019-09-04 06:27] LABS: Potassium 3.8 mmol/L (3.5-5.1)
[2019-09-04] MEDS: NA CHLORIDE 0.9% 1,000 ML IV SCH ×2 (08:11→08:59)
[2019-09-04] MEDS ORDERED: POTASSIUM 25 MEQ EFFERV TAB PO ONE (09:00)
[2019-09-04] MEDS: Meropenem 1,000 MG in NA CHLORIDE 0.9% 100 ML IV SCH ×2 (11:24→16:35)
[2019-09-04] MEDS ORDERED: Meropenem 1000 MG/VIAL IV SCH (17:00)
[2019-09-04] MEDS ORDERED: HYDROCODONE/APAP 7.5/325 MG TAB PO PRN (17:51)
--- NOTE | 2019-09-04 20:18 | PN ---
Date of Progress Note: 09/04/2019 Subjective: Patient seen and examined, chart reviewed, and case discussed with RN. at the b edside, treatment plan explained, and all questions answered. Patient understands that she likely ne eds a PICC line for long-term IV antibiotics. Medications: List reviewed. Objective: Vital Signs: Temperature 97.3, heart rate 86, blood pressure 127/70, respirations 20, O2 98% on room air. General: Awake, alert, oriented x3. Ill-appearing female, obese, BMI 38. CV: S1, S2. Regular rate and rhythm. Peripheral pulses present. Respiratory: Moving air well bilaterally. No wheezing or stridor. Gastrointestinal: Abdomen is soft. Minimal tenderness to palpation. No rebound or guarding. Posit hernán bowel sounds. Extremities: No clubbing, cyanosis, or edema. Neuro: Nonfocal. Laboratory Data: Sodium 142, potassium 3.8, chloride 109, CO2 of 27, BUN 6, creatinine 0.81, glucose 109, calcium 8. WBC 8.9, H and H 13.2 and 39.4, platelets 246, neutrophils 70%. Blood cultures: N o growth to date. Urine cultures growing out Proteus mirabilis. Assessment: A 49-year-old female with: 1.Acute diverticulitis. Continue IV antibiotics, switch over to meropenem. We will stop Levaquin a nd Flagyl as an outpatient. Has Proteus, ESBL producing. Patient tolerating her diet. GI was consu lted yesterday due to GI bleed. Patient to follow up with Dr. Knight as an outpatient for surgery f or the colovesicular fistula. 2.Colovesicular fistula. Appreciate Dr. Knight's input. Plan is for outpatient correction. 3.Acute cystitis without hematuria secondary to Proteus, ESBL producing. We will switch IV antibiot ics to meropenem. Obtain PICC line for long-term IV antibiotics and ID consultation. 4.Gastrointestinal bleed, likely secondary to diverticulitis. GI has been consulted. 5.Obesity, BMI of 38. 6.Fatty liver disease. Counseled. Plan: Discharge in the next 24 to 48 hours once clinically stable and long-term IV antibiotics have been set up. SA/MODL Voice ID: [id number] Report ID: [id number]
--- NOTE | 2019-09-04 20:40 | RAD REPORT ---
EXAM DESCRIPTION: RAD - Chest Single View - 09/04/2019 8:34 pm CLINICAL HISTORY: Device placement PICC line placement . IMPRESSION: PICC line with its tip in the mid superior vena cava
[2019-09-04] MEDS: LACTOBACILLUS/ACIDOPHILUS TAB PO SCH (21:08)
[2019-09-05] MEDS: NA CHLORIDE 0.9% 1,000 ML IV SCH ×3 (00:29→14:59)
[2019-09-05] MEDS: Meropenem 1,000 MG in NA CHLORIDE 0.9% 100 ML IV SCH ×2 (00:29→08:32)
[2019-09-05 05:45] LABS: Absolute Lymphocytes (CBC) 1.9 K/uL (0.7-4.9); Hematocrit 37.2 % (36.0-45.0); Lymphocytes % 24.2 % (15.3-44.8); MPV 8.6 fL (7.6-11.3); RBC Red Blood Cell Count 4.18 M/uL (3.86-4.86)
[2019-09-05 05:58] LABS: BUN Blood Urea Nitrogen 7 mg/dL (7-18); Bicarbonate 26 mmol/L (21-32); Glucose Level 108 mg/dL (74-106); Potassium 3.8 mmol/L (3.5-5.1); Sodium Level 144 mmol/L (136-145)
[2019-09-05] MEDS: LACTOBACILLUS/ACIDOPHILUS TAB PO SCH (08:32)
[2019-09-05] MEDS ORDERED: POTASSIUM CL SA 10 MEQ TAB PO ONE (15:00)
--- NOTE | 2019-09-05 17:15 | CON ---
History Of Present Illness: This is a 49-year-old female with significant history of diverticulitis, coming in with urinary tract infection. The patient on a recent CT scan shows that she has fistula formation from sigmoid colon to bladder. She is growing Proteus mirabilis, which is ESBL positive, b eing treated with meropenem which was started yesterday. Patient denies any headache, nausea, vomiti ng, chest pain, abdominal pain, constipation, or diarrhea. Patient had burning urination prior to ho spitalization and nausea. No other significant symptoms. Past Medical History: Includes diverticulitis for which patient has been treated multiple times, rec urrent urinary tract infection, hysterectomy, tubal ligation, gallbladder surgery, ankle surgery. Social History: Nonsmoker, nondrinker. Family History: Noncontributory. Medications: Meropenem. See MARs for other medications. Allergies: NO KNOWN DRUG ALLERGIES. Review of Systems: A 10-point review was performed. Physical Examination: General: This is a 49-year-old female, sitting in bed, not in any acute distress vital signs: [place] rature 99, pulse 83, respirations 15, blood pressure 126/59. No positive signs at this time on [facility]. Laboratory Data: WBC 9.7, hemoglobin 12.4, platelets 216. White blood cell count on initial admissi on was 13.2. Chemistry shows sodium 144, potassium 3.8, chloride 110, bicarb 26, BUN 7, creatinine 0 .6, glucose 108, albumin level 3.9. Microdata: E coli, Proteus mirabilis, ESBL, currently being on meropenem. Assessment And Plan: Urinary tract infection secondary to Escherichia coli, Proteus mirabilis, exten ded-spectrum beta-lactamase in a 49-year-old female with significant finding of fistula formation bet ween sigmoid colon and bladder. Continue total treatment of 7 days. Repeat urinalysis prior to stop ping meropenem. Follow up with primary care and surgical team. We will follow the patient closely. Thank you Dr. Forrester for consult. OLIVA/MOHAMUD Voice ID: [id number] Report ID: [id number]
[2019-09-05 17:41] VITALS: BP 136/63; TEMP 97
[2019-09-05] MEDS ORDERED: CIPROFLOXACIN HCL 500 MG TAB PO SCH (21:00)
--- NOTE | 2019-09-06 02:11 | DS ---
Date of Discharge: 09/05/2019 Consultants: 1.Dr. Knight, General Surgery. 2.Dr. Baig with GI. 3.Dr. Howard with Infectious Disease. Procedures: None. Admitting Diagnoses: 1.Acute diverticulitis. 2.Colovesicular fistula. Discharge Diagnoses: 1.Acute diverticulitis, improving. 2.Colovesicular fistula. 3.Acute cystitis without hematuria secondary to Proteus extended spectrum beta-lactamases producing. 4.Lower GI bleed secondary to diverticulitis. 5.Obesity, BMI 38. 6.Fatty liver disease. Hospital Course: Patient is a 49-year-old female with past medical history of colovesicular fistula, comes in with dysuria and increased urinary frequency. The patient's CT scan showed mild sigmoid di verticulitis. Patient was admitted to the hospital for further evaluation. She was started on IV an tibiotics. Her white blood cell count improved. She did well. She did have abnormal UA, which ende d up growing Proteus ESBL producing. Patient was switched over to meropenem. PICC line was placed a s patient will need long-term IV antibiotics for 4 weeks with meropenem. She will need to have weekl y labs including CBC, CRP, ESR, and CMP to be followed by her PCP and to have dose adjusted renally i f necessary. Patient was also seen by her primary surgeon, Dr. Knight, who has been planning the re pair for the colovesicular fistula. She will follow up with him as an outpatient once treatment has been completed for repair. Patient was also seen by Dr. Baig, GI, who recommended outpatient colon oscopy. Patient did have GI bleed while she was in the hospital. This is likely secondary to her di verticulitis. Her hemoglobin levels did not change significantly and were stable. She has a hemoglo bin of 12.4 on discharge. Patient was then doing well, she was ambulating, tolerating her diet. No further nausea, vomiting. No further GI bleed. She was set up with home health with IV infusions at home. will be assisting the patient as well, will be taught by the infusion company. Cecy laguerre was then discharged home in a stable condition. Activity: As tolerated. Medications: As per medication reconciliation list. Diet: Heart healthy. Followup: Follow up with PCP in 2-3 days. Follow up with GI, Dr. Baig, in 2 weeks. Follow up wit h surgeon, Dr. Knight in 2 weeks. Return to ER for worsening condition. Physical Examination: General: Awake, alert, and oriented x3, not in any acute distress. CV: S1, S2. Regular rate and rhythm. Peripheral pulses present. Respiratory: Moving air well bilaterally, no wheezing. Gastrointestinal: Abdomen is soft, nontender, nondistended. Positive bowel sounds. Extremities: No clubbing, cyanosis, edema. Neurologic: Nonfocal. Total time spent discharging patient was 35 minutes. /MODFernanda Voice ID: [id number] Report ID: [id number]
== END 2019-09-05 18:06 | disposition home or self-care (01) | DRG 378 ==
LOC: ER 10:52 → ERHOLD 14:55 → 2ND 16:28
PROVIDERS: ADMIT Internal Medicine; ATTEND Internal Medicine
PROC: 02HV33Z Insertion of Infusion Device into Superior Vena Cava, Percutaneous Approach (ICD-10-PCS; principal; 2019-09-04)
DX: K57.33 Diverticulitis of large intestine without perforation or abscess with bleeding (principal); N32.1 Vesicointestinal fistula; N30.00 Acute cystitis without hematuria; Z16.12 Extended spectrum beta lactamase (ESBL) resistance; E66.9 Obesity, unspecified; Z68.38 Body mass index [BMI] 38.0-38.9, adult; K76.0 Fatty (change of) liver, not elsewhere classified; B96.4 Proteus (mirabilis) (morganii) as the cause of diseases classified elsewhere; Z23 Encounter for immunization
CPT/HCPCS: 36415; 36569; 71045; 74177; 80048; 80076; 81003; 81025; 83690; 83735; 84100; 85014; 85018; 85025; 87040; 87077; 87086; 87088; 87186; 90471; 94760; 96365; 96367; 96375; 99285; J0696; J0744; J1170; J1644; J2270; J2405; J3010; J7030; Q2035; Q9967

== ENCOUNTER 2020-03-24 08:13 | Emergency (ER) | payer OTHER ==
[2020-03-24 08:47] LABS: Absolute Lymphocytes (CBC) 2.4 K/uL (0.7-4.9); Basophils % 1.1 % (0-1.3); Hematocrit 41.8 % (36.0-45.0); Lymphocytes % 18.1 % (15.3-44.8); MPV 8.7 fL (7.6-11.3); RBC Red Blood Cell Count 4.87 M/uL (3.86-4.86)
[2020-03-24] MEDS ORDERED: MORPHINE 4 MG/ML SYR ONE (08:49)
[2020-03-24] MEDS ORDERED: ONDANSETRON 4 MG/2 ML VIAL ONE (08:49)
[2020-03-24] MEDS ORDERED: NA CHLORIDE 0.9% 1,000 ML ONE (08:50)
[2020-03-24 09:06] LABS: ALT/SGPT 39 U/L (12-78); AST/SGOT 22 U/L (15-37); Albumin 3.4 g/dL (3.4-5.0); Alkaline Phosphatase 175 U/L (45-117); BUN Blood Urea Nitrogen 16 mg/dL (7-18); Bicarbonate 25 mmol/L (21-32); Bilirubin Direct < 0.1 mg/dL (0-0.2); Bilirubin Total 0.1 mg/dL (0.2-1.0); Glucose Level 184 mg/dL (74-106); Lipase 150 U/L (73-393); Potassium 3.9 mmol/L (3.5-5.1); Protein, Total 7.3 g/dL (6.4-8.2); Sodium Level 141 mmol/L (136-145)
--- NOTE | 2020-03-24 09:07 | RAD REPORT ---
EXAM DESCRIPTION: CT - Stone Protocol - 03/24/2020 8:56 am CLINICAL HISTORY: Flank pain. FLANK PAIN COMPARISON: Abdomen Pelvis W Contrast dated 09/02/2019 TECHNIQUE: Axial images were obtained without oral or IV contrast. Lack of contrast limits solid org an and vascular assessment. The [id number] spans the entirety of the system partially obscuring uppermost abdomen and lung bases. Coronal reformatted images were obtained and reviewed. All CT scans are performed using dose optimization technique as appropriate and may include automated exposure control or mA/KV adjustment according to patient size. FINDINGS: The lower lung roman are clear. Cholecystectomy clips. Imaged portions of the liver and spleen show no suspicious findings on non-contrast imaging. The panc reas and adrenal glands are normal. No pathologic lymphadenopathy in the abdomen or pelvis. No urinary tract stones or obstructive uropathy. No bowel obstruction, free air, free fluid or abscess. Normal appendix noted.26 mm area of epiploic a ppendagitis suspected left flank. Postsurgical changes are present in the sigmoid colon. Colonic dive rticulosis noted without diverticulitis. No significant bony abnormality. IMPRESSION: No urinary tract stones or obstructive uropathy. 26 mm area of epiploic appendagitis left flank.
--- OUTSIDE RECORDS SUMMARY | 2020-03-24 09:18 | XMS REPORT | Clinical Summary ---
:1970 Author Organization [facility] Address [address] [place] [address] Care Team Providers Name Role Phone Asked, Pcp Primary Care Provider Unavailable Allergies No Known Active Allergies Medications Medication Sig Dispensed Refills Start Date End Date Status Lactobacillus Take by mouth. 0 A ctive acidophilus (Probiotic) 10 billion cell capsule dextroamphetamine-amphet Take 10 mg by 0 Active amine (ADDERALL) 10 mg mouth daily. tablet Active Problems Not on file Encounters Date Type Specialty Care Team Description 12/12/2019 Lab Lab Yolanda Aldana Surger y follow-up MD examination 12/12/2019 Orders Only General Surgery Yolanda Aldana Sur gery follow-up MD examination (Pr imary Dx) 12/12/2019 Travel 12/12/2019 Orders Only General Surgery Alagugurusamy, Pre-op exa mination JANETH Tello (Prim luli Dx) 09/14/2019 Travel after 03/24/2019 Social History Tobacco Use Types Packs/Day Years Used Date Former Smoker Smokeless Tobacco: Never Used Alcohol Use Drinks/Week oz/Week Comments Yes occasionally Sex Assigned at Date Recorded Not on file Last Filed Vital Signs Not on file Plan of Treatment Health Maintenance Due Date Last Done Comments CERVICAL CANCER SCREENING 01/29/1993 INFLUENZA VACCINE 03/04/2020 Procedures Procedure Name Priority Date/Time Associated Comments Diagnosis URINE CULTURE Routine 12/12/2019 11:47 Results fo r this AM CDT procedure are i n the results section. MANUAL DIFFERENTIAL Routine 12/12/2019 10:40 Resu lts for this AM CDT procedure are i n the results section. URINALYSIS SCREEN AND Routine 12/12/2019 10:40 Re sults for this MICROSCOPY, WITH AM CDT procedure a re in REFLEX TO CULTURE the result s section. CBC WITH PLATELET AND Routine 12/12/2019 10:40 Re sults for this DIFFERENTIAL AM CDT procedure are i n the results section. after 03/24/2019 Results Urine culture (12/12/2019 11:47 AM CDT) Urine culture Mixed marilyn <=10-3 col/cc [facility] isolate Comment: HOSPITAL Specimen Information Specimen Source: Urine Specimen Site: Clean catch Specimen Urine Performing Organization Address City/[facility] Phon e Number [facility] DEPARTMENT OF PATHOLOGY AND [address] [place], [place] [phone] [address] [address] Urinalysis screen and microscopy, with reflex to culture (12/12/2019 10:40 AM CDT) Specimen site Clean catch [facility] Color, UA Straw [facility] Appearance, UA Hazy [facility] Specific gravity, UA 1.017 1.001 - 1.035 [facility] pH, UA 5.0 5.0 - 8.5 [facility] Protein, UA Negative Negative [facility] Glucose, UA Negative Negative [facility] Ketones, UA Negative Negative [facility] Bilirubin, UA Negative Negative [facility] Blood, UA Negative Negative [facility] Nitrite, UA Negative Negative [facility] Urobilinogen, UA <2.0 <2.0 [facility] Leukocyte esterase, Trace (A) Negative [facility] Epithelial cells, UA 9 /HPF [facility] WBC, UA 16 (H) 0 - 4 /HPF [facility] RBC, UA 3 0 - 5 /HPF [facility] Bacteria, UA None seen None seen [facility] Yeast, UA None seen [facility] Yeast with None seen [facility] pseudohyphae, HOSPITAL Specimen Urine Performing Organization Address City/[facility] Phon e Number [facility] DEPARTMENT OF PATHOLOGY AND [address] [place] [address] [phone] [address] Manual differential (12/12/2019 10:40 AM CDT) Manual differential PERFORMED [facility] Neutrophils 57.0 39.0 - 69.0 % [facility] Lymphocytes 28.0 25.0 - 45.0 % [facility] Monocytes 10.0 0.0 - 10.0 % [facility] Eosinophils 4.0 0.0 - 5.0 % [facility] Basophils 1.0 0.0 - 1.0 % [facility] Metamyelocytes 0 % [facility] Promyelocytes 0 % [facility] Platelet slide review Kelly slt incr [facility] Anisocytosis Moderate [facility] Ovalocytes Moderate [facility] Enlarged platelets Moderate (A) [facility] Giant platelets Occasional [facility] Specimen Performing Organization Address City/State/RUST Code Phon e Number [facility] DEPARTMENT OF PATHOLOGY AND [address] [place] [phone] [address] CBC with platelet and differential (12/12/2019 10:40 AM CDT) Pathologist Sig nature WBC 11.45 (H) 4.50 - 11.00 k/uL [facility] RBC 4.33 4.20 - 5.50 m/uL [facility] HGB 12.2 12.0 - 16.0 g/dL [facility] HCT 39.1 37.0 - 47.0 % [facility] MCV 90.3 82.0 - 100.0 fL [facility] MCH 28.2 27.0 - 34.0 pg [facility] MCHC 31.2 31.0 - 37.0 g/dL [facility] RDW - SD 42.2 37.0 - 55.0 fL [facility] MPV 10.4 8.8 - 13.2 fL [facility] Platelet count 430 (H) 150 - 400 k/uL [facility] Nucleated RBC 0.00 /100 WBC [facility] Neutrophils 57.0 39.0 - 69.0 % [facility] Lymphocytes 28.0 25.0 - 45.0 % [facility] Monocytes 10.0 0.0 - 10.0 % [facility] Eosinophils 4.0 0.0 - 5.0 % [facility] Basophils 1.0 0.0 - 1.0 % [facility] Specimen Performing Organization Address City/State/ZIP Code Phon e Number [facility] DEPARTMENT OF PATHOLOGY AND [address], [place] [phone] GENOMIC MEDICINE [facility] [address] [place] [address] after 03/24/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
--- OUTSIDE RECORDS SUMMARY | 2020-03-24 09:19 | XMS REPORT | Continuity of Care Document ---
:1970 Author Organization [employer] Care Team Providers Name Role Phone [employer] Unavailable Un available Problems Problem Status Onset Classification Date Comments Sourc e Date Reported Diverticulitis of 01/05/2017 M H [place] intestine, part 7 Land unspecified, without perforation or abscess without bleeding Urinary tract 01/05/2017 [place] infection, site 7 [place] not specified Acute upper 10/12/2016 [place] respiratory 7 [place] infection, unspecified FEVER Active [place] 7 [place] Cough 10/11/2016 [place] 7 [place] Nicotine 10/11/2016 [place] dependence, 7 [place] unspecified, uncomplicated Viral infection, 10/11/2016 [place] unspecified 7 [place] FEVER, DIARRHEA Active S [place] 7 [place] Medications Medication Details Route Status Patient Ordering Order Source Instructions Provider Date Acetaminophen 300 1 - 2 tab, Active MH MG / Codeine PO, Q4H, PRN 017 [place] Phosphate 30 MG Pain, X 3 [place] Oral Tablet day, # 20 [Tylenol with tab, 0 Codeine #3] Refill(s) ciprofloxacin 500 500 mg = 1 Active MH mg oral tablet tab, PO, 017 [place] Q12H, X 10 [place] day, # 20 tab, 0 Refill(s) Metronidazole 500 500 mg = 1 Active MH MG Oral Tablet tab, PO, Q8H, 017 [place] [Flagyl] X 10 day, # [place] 30 tab, 0 Refill(s) 200 ML Notes: Do not Inactive Ciprofloxacin 2 refrigerate 017 [place] MG/ML Injection Land Flagyl Notes: (Same No Longer MH as: Flagyl) Active 017 [place] Avoid [place] alcohol. sodium chloride 1,000 mL, No Longer MH 0.9% 1000 ml INJ Rate: 100 Active 017 [place] 1,000 mL ml/hr, Infuse [place] over: 10 hr, Route: IV, Dosing Weight 82.045 kg, Total Volume: 1,000, Start date: 01/01/17 14:08:00 CDT, Duration: 30 day, Stop date: 01/31/17 14:07:00 CDT tramadol Notes: Not to No Longer hydrochloride 50 exceed Active 017 [place] MG Oral Tablet 400mg/day. Land (Same As: Ultram) Morphine Notes: (Same No Longer as:MORPhine Active 017 [place] Sulfate) Land Zofran Notes: (Same No Longer as: Zofran) Active 017 [place] MEDICATION WASTE Product Size: 4 mg Product Wasted: ___ mg Tylenol Notes: Do not No Longer exceed 4 Active 017 [place] gm/day. [place] (Same as: Tylenol) Dilaudid 1 mg, Route: Inactive IVP, ONCE, 017 [place] Dosing Weight [place] 82.045, kg, Priority: STAT, Start date: 01/01/17 13:13:00 CDT, Stop date: 01/01/17 13:13:00 CDT Flagyl 500 mg, Inactive Route: IVPB, 017 [place] ONCE, Dosing [place] Weight 82.045, kg, Priority: STAT, Start date: 01/01/17 13:05:00 CDT, Duration: 1 doses or times, Stop date: 01/01/17 13:05:00 CDT, ABX Indication: Intra-abdomin al Infection Cipro Notes: Do not Inactive refrigerate 017 [place] Metronidazole 500 500 mg = 1 No Longer M H MG Oral Tablet tab, PO, Q8H, Active 017 [place] [Flagyl] X 10 day, # [place] 30 tab, 0 Refill(s) Ondansetron 4 mg, Route: Inactive IVP, ONCE, 017 [place] Dosing Weight [place] 82.045, kg, Priority: STAT, Start date: 01/01/17 12:11:00 CDT, Stop date: 01/01/17 12:11:00 CDT Ketorolac 30 mg, Route: Inactive IVP, ONCE, 017 [place] Dosing Weight [place] 82.045, kg, Priority: STAT, Start date: 01/01/17 12:11:00 CDT, Stop date: 01/01/17 12:11:00 CDT Sodium Chloride 1,000 mL, Inactive 0.154 MEQ/ML 2,000 ml/hr, 017 [place] Injectable Infuse Over: [place] Solution 30 minutes, Route: IV, ONCE, Priority: STAT, Dosing Weight 82.045 kg, Start date: 01/01/17 12:11:00 CDT, Duration: 1 doses or times, Stop date: 01/01/17 12:11:00 CDT Saline Flush 0.9% Notes: (Same No Longer as: BD Active 017 [place] Posiflush) Land Tylenol Notes: Do not Inactive exceed 4 017 [place] gm/day. Land (Same as: Tylenol) 12 HR Loratadine 1 tab, PO, Active 5 MG / Q12H, X 7 017 [place] Pseudoephedrine day, # 14 [place] sulfate 120 MG tab, 0 Extended Release Refill(s) Tablet [Claritin-D] ibuprofen 600 mg 600 mg = 1 Active oral tablet tab, PO, Q8H, 017 [place] PRN Pain or Land Fever, Take with food, X 10 day, # 30 tab, 0 Refill(s) acetaminophen 500 500 mg = 1 Active mg oral tablet tab, PO, Q4H, 017 [place] PRN Pain, X [place] 10 day, # 60 tab, 0 Refill(s) Albuterol 0.833 Notes: (Same Inactive MG/ML / as: Duoneb) 017 [place] Ipratropium [place] 0.167 MG/ML Inhalant Solution Ibuprofen Notes: (Same Inactive as: Motrin) 017 [place] "Do Not Land Crush" Take with food. 200 ACTUAT 2 puff, Active Albuterol 0.09 INHALATION, 017 [place] MG/ACTUAT Metered Q6H, PRN Land Dose Inhaler Cough, # 9 gm, 0 Refill(s) Albuterol 0.83 2.49 mg, Inactive MG/ML Inhalant Route: NEB, 017 [place] Solution Drug form: Land SOLN, ONCE, Dosing Weight 89.364, kg, Priority: STAT, Start date: 10/08/16 22:00:00 CDT, Stop date: 10/08/16 22:00:00 CDT Ketorolac 4 days Inactive MEDICATION 017 [place] WASTE [place] Product Size: 30 mg Product Wasted: ___ mg Zofran ODT Notes: (Same Inactive as: Zofran 017 [place] ODT) Land Ibuprofen 600 mg, Inactive Route: PO, 017 [place] Drug form: Land TAB, ONCE, Dosing Weight 89.364, kg, Priority: STAT, Start date: 10/08/16 21:40:00 CDT, Stop date: 10/08/16 21:40:00 CDT Allergies, Adverse Reactions, Alerts No Known Medication Allergies Immunizations No Data Provided for This Section Results Order Name Results Value Reference Date Interpretation Comments Robyn rce Range CHEM PANEL Magnesium Lvl 1.8 1.8 - 2.4 01/02 [place] CHEM PANEL Phosphorus 3.0 2.5 - 4.5 01/02 [place] CHEM PANEL eGFR 101 01/02 Result Comment: [...] Potassium Lvl 3.7 3.5 - 5.1 01/02 [place] CHEM PANEL Chloride Lvl 110 95 - 109 07/02 MH /2016 [place] CHEM PANEL Creatinine Lvl 0.73 0.50 - 07/02 MH 1.40 /2016 [place] CHEM PANEL Sodium Lvl 143 135 - 145 07/ /2016 [place] CHEM PANEL CO2 29 24 - 32 07/ /2016 [place] CHEM PANEL AGAP 7.7 10.0 - 07/02 MH 20.0 /2016 [place] CHEM PANEL Calcium Lvl 7.5 8.5 - 10.5 07/ /2016 [place] CHEM PANEL Glucose Lvl 97 70 - 99 07/ /2016 [place] CHEM PANEL BUN 9 7 - 22 07/ /2016 [place] HEMATOLOGY Platelet 188 133 - 450 07/ /2016 [place] HEMATOLOGY RDW 12.6 11.5 - 07/ MH 14.5 /2016 [place] HEMATOLOGY MPV 9.0 7.4 - 10.4 07/ /2016 [place] HEMATOLOGY Hgb 11.4 12.0 - 07/ MH 16.0 /2016 [place] HEMATOLOGY MCV 90.2 80.0 - 07/02 MH 98.0 /2017 [place] HEMATOLOGY Hct 34.3 36.0 - 07/ MH 48.0 /2017 [place] HEMATOLOGY WBC 9.0 3.7 - 10.4 07/ MH /2016 [place] HEMATOLOGY RBC 3.80 4.20 - 07/02 MH 5.40 /2016 [place] HEMATOLOGY MCH 30.0 27.0 - 07/02 MH 31.0 /2016 [place] HEMATOLOGY MCHC 33.2 32.0 - 07/ MH 36.0 /2017 [place] HEMATOLOGY Lymphocytes 24.8 20.0 - 07/02 MH 40.0 /2016 [place] HEMATOLOGY Segs 66.6 45.0 - 07/02 MH 75.0 /2017 [place] HEMATOLOGY Monocytes 6.4 2.0 - 12.0 07/ MH /2016 [place] HEMATOLOGY Eosinophils 1.3 0.0 - 4.0 07/ MH /2016 [place] HEMATOLOGY Basophils 0.9 0.0 - 1.0 07/02 MH /2016 [place] HEMATOLOGY Segs-Bands # 6.0 1.5 - 8.1 07/ /2016 [place] HEMATOLOGY Basophils # 0.1 0.0 - 0.2 07/ [place] HEMATOLOGY Monocytes # 0.6 0.0 - 0.8 / [place] HEMATOLOGY Eosinophils # 0.1 0.0 - 0.5 / [place] HEMATOLOGY Lymphocytes # 2.2 1.0 - 5.5 01/02 [place] CHEM PANEL Lactic Acid 1.6 0.5 - 2.2 01/01 MH Lvl /2016 [place] CHEM PANEL Lipase Lvl 102 73 - 393 01/01 [place] CHEM PANEL eGFR 77 01/01 Result Comment: The [place] eGFR is Land [...] Bili Total 0.8 0.2 - 1.3 01/01 [place] CHEM PANEL AST 11 0 - 37 01/01 [place] CHEM PANEL ALT 22 0 - 65 01/01 [place] CHEM PANEL Alk Phos 82 39 - 136 01/01 [place] CHEM PANEL CO2 27 24 - 32 01/01 [place] CHEM PANEL Albumin Lvl 3.8 3.5 - 5.0 01/01 [place] CHEM PANEL Total Protein 7.9 6.4 - 8.4 01/01 [place] CHEM PANEL Calcium Lvl 9.4 8.5 - 10.5 01/01 [place] CHEM PANEL Potassium Lvl 3.7 3.5 - 5.1 01/01 [place] CHEM PANEL Chloride Lvl 104 95 - 109 01/01 [place] CHEM PANEL Sodium Lvl 140 135 - 145 07 [place] CHEM PANEL Glucose Lvl 111 70 - 99 07 /2016 [place] CHEM PANEL Creatinine Lvl 0.91 0.50 - 07/ MH 1.40 /2016 [place] CHEM PANEL BUN 12 7 - 22 01/01 [place] CHEM PANEL A/G Ratio 0.9 0.7 - 1.6 01/01 [place] CHEM PANEL AGAP 12.7 10.0 - 07/ MH 20.0 /2016 [place] CHEM PANEL Globulin 4.1 2.7 - 4.2 07 [place] CHEM PANEL B/C Ratio 13 6 - 25 01/01 [place] HEMATOLOGY Segs 80.5 45.0 - 07 MH 75.0 /2016 [place] HEMATOLOGY Eosinophils 0.3 0.0 - 4.0 01/01 [place] HEMATOLOGY Lymphocytes 13.9 20.0 - 07 MH 40.0 [place] HEMATOLOGY Monocytes 5.1 2.0 - 12.0 01/01 [place] HEMATOLOGY Plt Morph Normal 01/01 MH (01/01/17 12:16 PM) [place] HEMATOLOGY RBC Morph Normal 07 MH (01/01/17 12:16 PM) /2016 [place] HEMATOLOGY Basophils # 0.0 0.0 - 0.2 01/01 [place] HEMATOLOGY Eosinophils # 0.1 0.0 - 0.5 01/01 [place] HEMATOLOGY Basophils 0.2 0.0 - 1.0 01/01 [place] HEMATOLOGY Segs-Bands # 13.7 1.5 - 8.1 01/01 [place] HEMATOLOGY Lymphocytes # 2.4 1.0 - 5.5 01/01 [place] HEMATOLOGY Monocytes # 0.9 0.0 - 0.8 01/01 [place] HEMATOLOGY MPV 9.1 7.4 - 10.4 01/01 [place] HEMATOLOGY Platelet 272 133 - 450 01/01 [place] HEMATOLOGY Hct 44.3 36.0 - 07/ MH 48.0 [place] HEMATOLOGY MCV 89.6 80.0 - 07 MH 98.0 [place] HEMATOLOGY MCH 29.6 27.0 - 07 MH 31.0 [place] HEMATOLOGY RDW 12.7 11.5 - 01/01 MH 14.5 /2016 [place] HEMATOLOGY MCHC 33.1 32.0 - 01/01 MH 36.0 /2016 [place] HEMATOLOGY WBC 17.0 3.7 - 10.4 01/01 [place] HEMATOLOGY Hgb 14.7 12.0 - 01/01 MH 16.0 /2016 [place] HEMATOLOGY RBC 4.95 4.20 - 01/01 MH 5.40 /2016 [place] URINE AND UA Protein Negative Negative 01/01 [facility] mg/dL mg/dL [place] URINE AND UA Ketones Negative Negative 01/01 [facility] mg/dL mg/dL [place] URINE AND UA Glucose Negative Negative 01/01 [facility] mg/dL mg/dL [place] URINE AND UA Color Yellow Yellow 01/01 [place] *NA* /2016 [place] (01/01/17 12:16 PM) [place] URINE AND UA Turbidity Slight Clear 01/01 [facility] *ABN* /2016 [place] (01/01/17 12:16 PM) [place] URINE AND UA pH 6.0 5.0 - 8.0 01/01 [facility] [place] URINE AND UA Spec Grav 1.016 <=1.030 01/01 [facility] [place] URINE AND UA <=1.0 0.1 - 1.0 01/01 [facility] Urobilinogen mg/dL [place] URINE AND UA RBC 1 0 - 2 01/01 [facility] [place] URINE AND UA WBC 6 0 - 5 01/01 [facility] [place] URINE AND UA Hyal Cast 1 0 - 2 01/01 [facility] [place] URINE AND UA Mucus Few /LPF None Seen 01/01 [facility] /LPF /2016 [place] URINE AND UA Bili Negative Negative 01/01 [facility] *NA* /2016 [place] (01/01/17 12:16 PM) [place] URINE AND UA Blood Negative Negative 01/01 [place] (01/01/17 12:16 PM) [place] URINE AND UA Leuk Est Trace Negative 01/01 [facility] *ABN* /2016 [place] (01/01/17 12:16 PM) [place] URINE AND UA Nitrite Negative Negative 01/01 [facility] (01/01/17 12:16 PM) [place] URINE AND UA Sq Epi Moderate Few /LPF 01/01 MH STOOL /LPF /2016 [place] URINE AND UA 2.0 0.1 - 1.0 10/09 [facility] Urobilinogen /2016 [place] URINE AND UA Sq Epi Many /LPF Few /LPF 10/09 [facility]OOL /2016 [place] URINE AND UA Nitrite Negative Negative 10/09 [facility] (10/09/16 5:21 AM) [place] URINE AND UA WBC 5 0 - 5 10/09 [facility]OL [place] URINE AND UA Leuk Est Negative Negative 10/09 [facility] (10/09/16 5:21 AM) [place] URINE AND UA Mucus Few /LPF None Seen 10/09 [facility] /LPF [place] URINE AND UA Spec Grav 1.030 <=1.030 10/09 STOOL [place] URINE AND UA RBC 4 0 - 2 10/09 [facility] [place] URINE AND UA Glucose Negative Negative 10/09 [facility] mg/dL mg/dL [place] URINE AND UA Blood Small Negative 10/09 [facility] *ABN* /2016 [place] (10/09/16 5:21 AM) [place] URINE AND UA Bili Negative Negative 10/09 [facility] *NA* /2016 [place] (10/09/16 5:21 AM) [place] URINE AND UA Ketones Negative Negative 10/09 [facility] mg/dL mg/dL [place] URINE AND UA Protein 30 mg/dL Negative 10/09 [facility] mg/dL [place] URINE AND UA pH 5.0 5.0 - 8.0 10/09 STOOL [place] URINE AND UA Turbidity Marked Clear 10/09 [facility] *ABN* /2016 [place] (10/09/16 5:21 AM) [place] URINE AND UA Color Dark Yellow Yellow 10/09 [facility] *NA* /2016 [place] (10/09/16 5:21 AM) [place] URINE CHEM U Preg Negative Negative 10/09 (10/09/16 5:21 AM) [place] VIRAL - Influ B Negative Negative 10/09 SEROLOGY (10/08/16 9:33 PM) [place] VIRAL - Influ A Negative Negative 10/09 SEROLOGY (10/08/16 9:33 PM) [place] Pathology Reports No Data Provided for This Section Diagnostic Reports Report Value Date Source Renal Stone CT EXAM: CT ABDOMEN/PELVIS WITHOUT CONTRAST (RENAL STONE) 01/01/2017 [place] DATE: 01/01/2017 12:11 PM CDT . CLINICAL INDICATION: Constan t left flank pain radiating to the pelvis, vomiting TECHNIQUE: Volumetric acquis ition of abdomen from the level of the domes of the diaphragm to the symphysis pubis using 5mm collimation without the use of intravenous or oral contrast as per our renal CT protocol. Axial and coronal images were reviewe d. This exam was performed acco rding to our departmental dose-optimization protocol, which includes automated exposure control, adjustment of the mA and/or kV according to patient size and/or use of iterative reconstruction technique. DLP - 626 mGy-cm COMPARISON: Unavailable FINDINGS: Kidneys: Unremarkable kidneys and ureters Urinary bladder: Unremarkable. GI tract: -- Rectum: Unremarkable. -- Colon: Inflammatory thic kening of the distal descending colon syncope sigmoid [...] ureters Chest 1view DX CLINICAL HISTORY PROVIDED: C ough and fever - 46-year-old female presents with fever and cough. 10/09/2016 [place] : 1970. PROCEDURE: Frontal chest radiograph has been obtained. COMPARISON: No prior chest imaging available. FINDINGS: Cardiac silhouette: Within normal limits. Remaining mediastinal and Yany: Within normal l imits. Pulmonary consolidation: None. Pleural effusion: None. Pneumothorax: None. Bones: No acute abnormality. IMPRESSION: 1. No acute cardiopulmonary process. Consultation Notes No Data Provided for This Section Discharge Summaries No Data Provided for This Section History and Physicals No Data Provided for This Section Vital Signs Vital Sign Value Date Comments Source Temperature Oral (F) 98.9 F 01/02/2017 Elisa Crawley Systolic (mm Hg) 118 01/02/2017 [facility] [place] Diastolic (mm Hg) 75 01/02/2017 MH [place] Heart Rate 82 01/02/2017 MH [place] Respitory Rate 16 01/02/2017 MH [place] Heart Rate 80 01/02/2017 MH [place] Respitory Rate 16 01/02/2017 [place] Temperature Oral (F) 97.9 F 01/02/2017 [facility] [place] Systolic (mm Hg) 93 01/02/2017 [facility] [place] Diastolic (mm Hg) 60 01/02/2017 MH [place] and Temperature Oral (F) 98.1 F 01/02/2017 [facility] [place] Respitory Rate 16 01/02/2017 MH [place] Heart Rate 80 01/02/2017 MH [place] Systolic (mm Hg) 96 01/02/2017 [facility] [place] Diastolic (mm Hg) 59 01/02/2017 [place] and Height 160.02 cm 01/01/2017 [place] BMI Calculated 31.95 01/01/2017 MH [place] Weight 81.818 01/01/2017 MH [place] Weight 82.045 01/01/2017 [place] BMI Calculated 32.04 01/01/2017 MH [place] Height 160.02 cm 01/01/2017 [place] Temperature Oral (F) 100.0 F 10/09/2016 [facility] [place] Systolic (mm Hg) 115 10/09/2016 [facility] [place] Diastolic (mm Hg) 89 10/09/2016 [place] and Respitory Rate 18 10/09/2016 [place] Heart Rate 99 10/09/2016 MH [place] Systolic (mm Hg) 129 10/09/2016 [facility] [place] Diastolic (mm Hg) 99 10/09/2016 [place] and Temperature Oral (F) 100.7 F 10/09/2016 [facility] [place] Weight 89.148 10/09/2016 MH [place] Heart Rate 102 10/09/2016 MH [place] Respitory Rate 18 10/09/2016 MH [place] Respitory Rate 18 10/09/2016 [place] Heart Rate 99 10/09/2016 MH [place] Systolic (mm Hg) 115 10/09/2016 [facility] [place] Diastolic (mm Hg) 62 10/09/2016 [place] and Temperature Oral (F) 99.2 F 10/09/2016 [place] Height 160.02 cm 10/09/2016 [place] BMI Calculated 34.9 10/09/2016 [place] Weight 89.364 10/09/2016 [place] Systolic (mm Hg) 110 10/09/2016 [place] Diastolic (mm Hg) 65 10/09/2016 [place] and Temperature Oral (F) 99.6 F 10/09/2016 [place] Respitory Rate 20 10/09/2016 [place] Heart Rate 109 10/09/2016 [place] Encounters Location Location Encounter Encounter Reason Attending ADM DC Stat us Source Details Type Number For Provider Date [facility] [id number] Bob 10/09 10/09 Jason Whittaker /2016 [facility] [place] [facility] [id number] [place] 10/09 10/09 Jason Hutchinson /2016 [place] [facility] [id number] Casie Devine 01/01 01/02 Jasonedwin Mckenna /2016 [facility] [place] Procedures Procedure Code Date Perfomer Comments Source Cholecystectomy 48008027 [place] Hysterectomy [id number] [place] Assessment and Plan Assessment and Plan Date Source Extracted from:Title: Discharge Summary * 01/02/2017 [place] Author: Casie Harrison MD Date: 01/02/17 Discharge Plan Discharge Summary Plan Discharge Status: improved. Discharge instructions given: to patient. Discharge disposition: discharge to home self care. Prescriptions: written and given to patient. Course Improving. Education and Follow-up Counseled: patient. Extracted from:Title: Admission H&P * Author: Casie Harrison MD Date: 01/01/17 Impression and Plan 1. Acute diverticulitis. clear liq diet, IV fluids, cipro a nd flagyl IV. 2. Acute LLQ abdominal pain. 2/2 above. 3. Leukocytosis. repeat labs in AM 4. Tobacco use d/o. counselled Plan of Care No Data Provided for This Section Social History Social History Date Source Social History TypeResponse 01/01/2017 [place] Agust[place] d Substance Abuse Use: None. Alcohol Current, Frequency: 1-2 times per week. Smoking Status Current every day smoker; Type: Cigarett es; Ready to change: No; Concerns about tobacco use in household: No; Exposure to Tobacco Smoke pt smokes; Cigarette Smoking Last 365 Days No; Reg Smoking Cessation Counseling Yes Family History No Data Provided for This Section Advance Directives No Data Provided for This Section Functional Status No Data Provided for This Section
--- OUTSIDE RECORDS SUMMARY | 2020-03-24 09:21 | XMS REPORT | Continuity of Care Document ---
:1970 Author Organization [facility] t Address [address] [place] [address] Care Team Providers Name Role Phone Asked, Pcp Primary Care Physician Unavailable Gatito Aldana MD Attending Clinician Anastacia iVllanueva Attending Clinician [phone] Bala Lopez Attending Clinician Mohan Hutchinson Attending Clinician Jorge Whittaker Attending Clinician Bala Lopez Admitting Clinician Payers Payer Name Policy Type Policy Effective Expiration Source Number Date Date [facility] [id number] 2019 [place] CHOICE/CHOICE 00:00:00 [facility]oration[facility] [id number]-Prese ntHMO/PPO Problems Condition Condition Condition Status Onset Resolution Last Treating Co mments Source Name Details Category Date Date Treatment Clinician Date FEVER Diagnosis Active 2016-10-09 Mem oria 10-09 05:55:00 l FEVER 00:00: [place] 00 Active 10/09/2016 [place] FEVER, Diagnosis Active 2016-10-08 Mem oria DIARRHEA 10-08 22:25:00 l FEVER, 00:00: [place] DIARRHEA 00 Active 10/08/2016 [place] Diverticul Problem 2017-01-05 2017-01-05 Memoria itis of 01-01 00:22:16 00:22:16 l intestine, 05:00: Will saenz part Diverticul 00 unspecifie itis of d, without intestine, perforatio part n or unspecifie abscess d, without without perforatio bleeding n or abscess without bleeding 7 01/05/2017 [place] Urinary Problem 2017-01-05 2017-01-05 Memoria tract 01-01 00:22:16 00:22:16 l infection, Urinary 05:00: Her garces site not tract 00 specified infection, site not specified 01/01/2017 01/05/2017 [place] Acute Problem 2016-10-12 2016-10-12 M emoria upper 10-09 01:22:16 01:22:16 l respirator Acute 05:00: Eunice nn y upper 00 infection, respirator unspecifie y d infection, unspecifie d 10/09/2016 10/12/2016 [place] Cough Problem 2016-10-11 2016-10-11 M emoria 10-08 04:49:19 04:49:19 l Cough 05:00: [place] 00 10/08/2016 10/11/2016 [place] Nicotine Problem 2016-10-11 2016-10-11 Memoria dependence 10-08 04:49:19 04:49:19 l , Nicotine 05:00: Will saenz unspecifie dependence 00 d, , uncomplica unspecifie yessica d, uncomplica yessica 10/08/2016 10/11/2016 [place] Viral Problem 2016-10-11 2016-10-11 M emoria infection, 10-08 04:49:19 04:49:19 l unspecifie Viral 05:00: Eunice nn d infection, 00 unspecifie d 10/08/2016 10/11/2016 [place] Allergies, Adverse Reactions, Alerts Allergy Allergy Status Severity Reaction(s) Onset Inactive Treating Comm ents Source Name Type Date Date Clinician No Known DA Active [facility] Allergie 11-19 [place] [facility] 00:00: Health 00 [facility] Social History Social Habit Start Date Stop Date Quantity Comments Source Sex Assigned At [place] [facility] Tobacco use and 2019-09-26 2019-09-26 Never used [place] exposure 00:00:00 00:00:00 [facility] Alcohol intake 2019-09-26 2019-09-26 Current drinker of Mateusz carranza 00:00:00 00:00:00 alcohol (finding) [facility] Alcohol Comment 2019-09-26 2019-09-26 occasionally [place] 00:00:00 00:00:00 [facility] Social History 2017-01-01 2017-01-01 [facility] ermann 21:02:16 21:02:16 Smoking Status Start Date Stop Date Source Former smoker 2019-09-26 00:00:00 2019-09-26 00:00:00 [place] [facility] Medications Ordered Filled Start Stop Current Ordering Indication Dosage Frequency Signature Comments Components Source Medication Medication Date Date Medication? Clinician (SIG) Name Name Lactobacill Yes Take by Sujatha moralesdany 09-25 mouth. Methodi acidophilus 14:22: st (Probiotic) 50 10 billion cell capsule dextroamphe Yes 10mg QD Take 10 mg [place] tamine-amph 09-25 by mouth Meth jessica etamine 14:22: daily. st (ADDERALL) 50 10 mg tablet Acetaminoph Yes 1 - 2 tab, Memoria en 300 MG / 02 PO, Q4H, l Codeine 16:51: PRN Pain, Eunice nn Phosphate 00 X 3 day, # 30 MG Oral 20 tab, 0 Tablet Refill(s) [Tylenol with Codeine #3] ciprofloxac Yes 500 mg = 1 Memoria in 500 mg -02 tab, PO, l oral tablet 16:50: Q12H, X 10 [place] 00 day, # 20 tab, 0 Refill(s) Metronidazo Yes 500 mg = 1 Memoria le 500 MG 7-02 tab, PO, l Oral Tablet 16:50: Q8H, X 10 H ermann [Flagyl] 00 day, # 30 tab, 0 Refill(s) 200 ML No Notes: Do Memori a Ciprofloxac 01-02 not l in 2 MG/ML 08:00: refrigerat H ermann Injection 00 e Flagyl No Notes: Memoria 7-02 (Same as: l 03:00: Flagyl) [place] Avoid alcohol. sodium No 1,000 mL, Memori a chloride 01-01 Rate: 100 l 0.9% 1000 19:08: ml/hr, Will n ml INJ 00 Infuse 1,000 mL over: 10 hr, Route: IV, Dosing Weight 82.045 kg, Total Volume: 1,000, Start date: 01/01/17 14:08:00 CDT, Duration: 30 day, Stop date: 01/31/17 14:07:00 CDT tramadol No Notes: Not Mem oria hydrochlori 01-01 to exceed l de 50 MG 19:06: 400mg/day. Her garces Oral Tablet 00 (Same As: Ultram) Morphine No Notes: Memoria 01-01 (Same l 19:06: as:MORPhin Jason 00 e Sulfate) Zofran No Notes: Memoria 01-01 (Same as: l 19:06: Zofran) [place] MEDICATION WASTE Product Size: 4 mg Product Wasted: ___ mg Tylenol No Notes: Do Memor ia 01-01 not exceed l 19:06: 4 gm/day. [place] 00 (Same as: Tylenol) Dilaudid No 1 mg, Memoria 01-01 Route: l 18:13: IVP, ONCE, Jason 00 Dosing Weight 82.045, kg, Priority: STAT, Start date: 01/01/17 13:13:00 CDT, Stop date: 01/01/17 13:13:00 CDT Flagyl No 500 mg, Memoria 01-01 Route: l 18:05: IVPB, [place] 00 ONCE, Dosing Weight 82.045, kg, Priority: STAT, Start date: 01/01/17 13:05:00 CDT, Duration: 1 doses or times, Stop date: 01/01/17 13:05:00 CDT, ABX Indication : Intra-abdo flako Infection Cipro No Notes: Do Memoria 01-01 not l 18:05: refrigerat Jason 00 e Metronidazo No 500 mg = 1 Memoria le 500 MG 7-01 tab, PO, l Oral Tablet 18:00: Q8H, X 10 H ermann [Flagyl] 00 day, # 30 tab, 0 Refill(s) Ondansetron No 4 mg, Memor ia 01-01 Route: l 17:11: IVP, ONCE, Dosing Weight 82.045, kg, Priority: STAT, Start date: 01/01/17 12:11:00 CDT, Stop date: 01/01/17 12:11:00 CDT Ketorolac No 30 mg, Memori a 01-01 Route: l 17:11: IVP, ONCE, Dosing Weight 82.045, kg, Priority: STAT, Start date: 01/01/17 12:11:00 CDT, Stop date: 01/01/17 12:11:00 CDT Sodium No 1,000 mL, Memori a Chloride 01-01 2,000 l 0.154 17:11: ml/hr, MEQ/ML 00 Infuse Injectable Over: 30 Solution minutes, Route: IV, ONCE, Priority: STAT, Dosing Weight 82.045 kg, Start date: 01/01/17 12:11:00 CDT, Duration: 1 doses or times, Stop date: 01/01/17 12:11:00 CDT Saline No Notes: Memoria Flush 0.9% 01-01 (Same as: l 17:11: BD Posiflush) Tylenol No Notes: Do Memor ia 10-09 not exceed l 10:55: 4 gm/day. (Same as: Tylenol) 12 HR Yes 1 tab, PO, Memori a Loratadine -08 Q12H, X 7 l 5 MG / 10:55: day, # 14 Will n Pseudoephed 00 tab, 0 rine Refill(s) sulfate 120 MG Extended Release Tablet [Claritin-D ] ibuprofen Yes 600 mg = 1 Me moria 600 mg oral 4-08 tab, PO, l tablet 10:55: Q8H, PRN Pain or Fever, Take with food, X 10 day, # 30 tab, 0 Refill(s) acetaminoph Yes 500 mg = 1 Memoria en 500 mg 4-08 tab, PO, l oral tablet 10:55: Q4H, PRN He rmann 00 Pain, X 10 day, # 60 tab, 0 Refill(s) Albuterol No Notes: Memori a 0.833 MG/ML 10-09 (Same as: l / 10:37: Duoneb) [place] Ipratropium 00 [place] 0.167 MG/ML Inhalant Solution Ibuprofen No Notes: Memori a 10-09 (Same as: l 10:37: Motrin) Jason 00 "Do Not Crush" Take with food. 200 ACTUAT Yes 2 puff, Thaddeus rogelio Albuterol 10-09 INHALATION l 0.09 03:04: , Q6H, PRN [place] MG/ACTUAT 00 Cough, # 9 Metered gm, 0 Dose Refill(s) Inhaler Albuterol No 2.49 mg, Thaddeus rogelio 0.83 MG/ML 10-09 Route: l Inhalant 03:00: NEB, Drug Herm edwin Solution 00 form: SOLN, ONCE, Dosing Weight 89.364, kg, Priority: STAT, Start date: 10/08/16 22:00:00 CDT, Stop date: 10/08/16 22:00:00 CDT Ketorolac No 4 days Memor ia 10-09 l 02:43: MEDICATION Jason 00 WASTE Product Size: 30 mg Product Wasted: ___ mg Zofran ODT No Notes: Memor ia 10-09 (Same as: l 02:40: Zofran [place] 00 ODT) Ibuprofen No 600 mg, Memor ia 10-09 Route: PO, l 02:40: Drug form: Jason 00 TAB, ONCE, Dosing Weight 89.364, kg, Priority: STAT, Start date: 10/08/16 21:40:00 CDT, Stop date: 10/08/16 21:40:00 CDT Vital Signs Vital Name Observation Time Observation Value Comments Source Temperature Oral (F) 2017-01-02 16:12:00 98.9 F [facility] [place] Systolic (mm Hg) 2017-01-02 16:12:00 Thaddeus rial [place] Diastolic (mm Hg) 2017-01-02 16:12:00 Mem orial [place] Heart Rate 2017-01-02 16:12:00 [facility] Respitory Rate 2017-01-02 16:12:00 Memori al Jason Heart Rate 2017-01-02 12:32:00 [facility] Respitory Rate 2017-01-02 12:32:00 Memori al [place] Temperature Oral (F) 2017-01-02 12:32:00 97.9 F [facility] Systolic (mm Hg) 2017-01-02 12:32:00 Thaddeus rial [place] Diastolic (mm Hg) 2017-01-02 12:32:00 Mem orial [place] Temperature Oral (F) 2017-01-02 08:44:00 98.1 F [facility] Respitory Rate 2017-01-02 08:44:00 Memori al [place] Heart Rate 2017-01-02 08:44:00 [facility] [place] Systolic (mm Hg) 2017-01-02 08:44:00 Thaddeus rial [place] Diastolic (mm Hg) 2017-01-02 08:44:00 Mem orial [place] Height 2017-01-01 23:15:00 160.02 cm [facility] [place] BMI Calculated 2017-01-01 23:15:00 Memori al [place] Weight 2017-01-01 23:15:00 [facility] [place] Weight 2017-01-01 16:56:00 [facility] BMI Calculated 2017-01-01 16:56:00 Memori al Jason Height 2017-01-01 16:56:00 160.02 cm [facility] [place] Temperature Oral (F) 2016-10-09 11:13:00 100.0 F [facility] Systolic (mm Hg) 2016-10-09 11:13:00 Thaddeus rial Jason Diastolic (mm Hg) 2016-10-09 11:13:00 Mem orial Jason Respitory Rate 2016-10-09 11:13:00 Memori al [place] Heart Rate 2016-10-09 11:13:00 [facility] [place] Systolic (mm Hg) 2016-10-09 10:13:00 Thaddeus rial [place] Diastolic (mm Hg) 2016-10-09 10:13:00 Mem orial Jason Temperature Oral (F) 2016-10-09 10:13:00 100.7 F [facility] Weight 2016-10-09 10:13:00 [facility] [place] Heart Rate 2016-10-09 10:13:00 [facility] [place] Respitory Rate 2016-10-09 10:13:00 Memori al [place] Respitory Rate 2016-10-09 03:25:00 Memori al Jason Heart Rate 2016-10-09 03:25:00 [facility] [place] Systolic (mm Hg) 2016-10-09 03:25:00 Thaddeus rial Jason Diastolic (mm Hg) 2016-10-09 03:25:00 Mem orial Jason Temperature Oral (F) 2016-10-09 03:25:00 99.2 F [facility] Height 2016-10-09 02:23:00 160.02 cm [facility] [place] BMI Calculated 2016-10-09 02:23:00 Memori al Jason Weight 2016-10-09 02:23:00 [facility] Systolic (mm Hg) 2016-10-09 02:23:00 Thaddeus rial [place] Diastolic (mm Hg) 2016-10-09 02:23:00 Mem orial Jason Temperature Oral (F) 2016-10-09 02:23:00 99.6 F [facility] Respitory Rate 2016-10-09 02:23:00 Memori al Jason Heart Rate 2016-10-09 02:23:00 [facility] [place] Procedures Procedure Date / Time Performing Clinician Source Performed URINE CULTURE 2019-12-12 11:47:00 Jemima Aldana CBC WITH PLATELET AND 2019-12-12 10:40:00 Jemima Aldana DIFFERENTIAL URINALYSIS SCREEN AND 2019-12-12 10:40:00 Jemima Aldana MICROSCOPY, WITH REFLEX TO CULTURE MANUAL DIFFERENTIAL 2019-12-12 10:40:00 Jemima Aldana Cholecystectomy [facility] Hysterectomy [facility] Plan of Care Planned Activity Planned Date Details Comments Source Future Scheduled 2020-03-04 INFLUENZA VACCINE Ju saenz [facility] Test 00:00:00 [code = INFLUENZA VACCINE] Future Scheduled 1993-01-29 Screening for [facility] Me [facility]odist Test 00:00:00 malignant neoplasm of cervix (procedure) [code = 000417077] Encounters Start End Encounter Admission Attending Care Care Encounter Source Date/Time Date/Time Type Type Clinicians Facility Department ID 2019-12-12 2019-12-12 Outpatient [facility] [id number] [place] 00:00:00 00:00:00 JEMIMA [address] 2019-12-12 2019-12-12 Outpatient [facility] [id number] [place] 00:00:00 00:00:00 JEMIMA [address] 2017-01-01 2017-01-02 Outpatient Bala SL [facility] [id number] 11:55:00 14:00:00 Jessica Benton Casie Devine 2016-10-09 2016-10-09 Outpatient [place] SL [id number] 05:05:00 06:15:00 Kenton Preston 2016-10-08 2016-10-08 [place] [id number] 21:19:00 22:29:00 Bob 00 Jorge Results Test Description Test Time Test Comments Results Result Comments Source Urine culture 2019-12-13 14:29:22 Test Item Value Reference Range Interpretation Comme nts Urine culture isolate Mixed marilyn <=10-3 Specimen InformationSpecimen (test code = 84159-2) col/cc Source : UrineSpecimen Site: Clean catch [facility] with platelet and [id number] 12:32:36 Test Item Value Reference Range Interpretation Comments WBC (test code = 95085-2) 11.45 4.50- 11.00 k/uL H RBC (test code = 50409-0) 4.33 m/uL 4.2-5.5 HGB (test code = 718-7) 12.2 g/dL 12-16 HCT (test code = 4544-3) 39.1 % 37-47 MCV (test code = 787-2) 90.3 fL 82-100 MCH (test code = 785-6) 28.2 pg 27-34 MCHC (test code = 786-4) 31.2 g/dL 31-37 RDW - SD (test code = 71004-6) 42.2 fL 37-55 MPV (test code = 48980-5) 10.4 fL 8.8-13.2 Platelet count (test code = 430 150- 400 k/uL H 48979-5) Nucleated RBC (test code = 0.00 /100 WBC 67739-3) Neutrophils (test code = 80792-1) 57.0 % 39-69 Lymphocytes (test code = 08649-9) 28.0 % 25-45 Monocytes (test code = 39220-1) 10.0 % 0-10 Eosinophils (test code = 37244-3) 4.0 % 0-5 Basophils (test code = 22161-0) 1.0 % 0-1 Lab Interpretation (test code = Abnormal 40624-0) [place] [facility] [id number] 12:32:36 Test Item Value Reference Range Interpretation Comments Manual differential (test code = PERFORMED 17503-1) Neutrophils (test code = 57.0 % 39-69 16021-1) Lymphocytes (test code = 28.0 % 25-45 01696-9) Monocytes (test code = 81488-9) 10.0 % 0-10 Eosinophils (test code = 4.0 % 0-5 58804-5) Basophils (test code = 85899-0) 1.0 % 0-1 Metamyelocytes (test code = 0 % 740-1) Promyelocytes (test code = 0 % 783-1) Platelet slide review (test code Kelly slt incr = 88258-7) Anisocytosis (test code = 702-1) Moderate Ovalocytes (test code = 774-0) Moderate Enlarged platelets (test code = Moderate A 13504-6) Giant platelets (test code = Occasional 5908-9) Lab Interpretation (test code = Abnormal 65373-1) [place] [facility] screen and microscopy, with reflex to culture 2019-12-12 11:49:05 Test Item Value Reference Range Interpretation Comments Specimen site (test code = Clean catch 4461398) Color, UA (test code = 5778-6) Straw Appearance, UA (test code = Hazy 5767-9) Specific gravity, UA (test code = 1.017 1.001-1.035 5811-5) pH, UA (test code = 5803-2) 5.0 5.0-8.5 Protein, UA (test code = 83486-4) Negative Negative Glucose, UA (test code = 11346-7) Negative Negative Ketones, UA (test code = 2514-8) Negative Negative Bilirubin, UA (test code = Negative Negative 5770-3) Blood, UA (test code = 5794-3) Negative Negative Nitrite, UA (test code = 5802-4) Negative Negative Urobilinogen, UA (test code = <2.0 <2.0 83752-3) Leukocyte esterase, UA (test code Trace Negative A = 5799-2) Epithelial cells, UA (test code = 9 /HPF 5787-7) WBC, UA (test code = 5821-4) 16 0- 4 /HPF H RBC, UA (test code = 90548-4) 3 0- 5 /HPF Bacteria, UA (test code = None seen None seen 20330-8) Yeast, UA (test code = 88816-8) None seen Yeast with pseudohyphae, UA (test None seen code = 89272-3) Lab Interpretation (test code = Abnormal 65705-9) [place] [facility] [id number] 18:08:00 RUN DATE: 11/29/19 [place] [facility] - LAB PAGE 1 RUN TIME: 1808 Specimen Inquiry RUN USER: INTERFACE PATIENT: JACOBY STRICKLAND LOC: P.5N POD B U #: [id number] AGE/SX: 49/F ROOM: [facility] RE11/23/19REG DR: Jemima Aldana MD : 74 BED: 1 DIS: 11/28/19 STATUS: DIS IN TLOC: SPEC #: [id number] RECD: 11/27/19 STATUS: EDELMIRA LOMELI #: [id number] JUAN: 11/23/[address] [facility] [address]: Jemima Aldana MD ENTERED: 11/27/19 SP TYPE: SURG OTHR DR: ORDERED: PATHGM3/2, PATHGM5, PATH SPEC, H E STAIN/2 HISTOLOGY: TISSUE ID BLK PCS CARMEN LEV / PROCEDURE DISPOSITION ____ ___ ___ ___ ___ COLON SEG NTUMRA 15 1 FISTULA/FISSURE B 1 1 TISSUES: A. COLON SEGMENTAL [id number] - Sigmoid Colon With Anastomotic Rings B. FISTULA/FISSURE - Colovesical Fistula CLINICAL HISTORY Colovesical Fistula FINAL DIAGNOSIS A-SIGMOID COLON AND ANASTOMOTIC RINGS, SEGMENTAL RESECTION: - Diverticulitis with associated acute and chronic inflammation and fibrosis. - Diverticulosis. - Acute serositis. - Serosal fibrous adhesions. - Resection margins, viable. - Anastomotic rings, viable. B-COLOVESICAL FISTULA, EXCISION: - Fibrous tissue with acute and chronic inflammation. - Negative for malignancy. GROSS DESCRIPTION The specimen is received in two parts in formalin-filled containers labeled with at least two patient identifiers and specimen source. A-SIGMOID COLON AND ANASTOMOTIC RINGS: The specimen consists of two unoriented and undesignated segments of bowel (12.5 cm in length x 2 cm in circumference; 21 cm in length x 1.5 cm circumference), an irregular piece of fibrofatty tissue (17 x 4 x 1 cm), and two undesignated anastomotic rings (1.8 x 1.8 x 1 cm; 2.5 x 2.3 x 1.3 cm). The shorter segment of bowel demonstrates a round and non-hemorr hagic full thickness defect (1.2 x 1 cm), that is 4 cm from the nearest resection margin. There isan additional area of james-brown serosal discoloration and adhesions (4 x 3 cm), that is 1 cm from the nearest resection margin, at the opposite side. This area is possibly associated with a diverticulum. Multiple diverticuli are seen within this segment of CONTINUED ON NEXT PAGE RUN DATE: 11/29/19 [facility] - LAB PAGE 2 RUN TIME: 1808 Specimen Inquiry RUN USER: INTERFACE SPEC #: [id number] PATIENT: EMJACOBY KOFI #[id number] (Continued) GROSS DESCRIPTION (Continued) bowel. The larger segment of bowel demonstrates a large area of serosal defect that extends through the muscularis propria and into the submucosa without entering the lumen, encompassing the entire length of thespecimen. Possible diverticuli are also identified in this segment. No masses are seen. The separately received fibroadipose tissue and anastomotic rings are grossly unremarkable. SECTION CODE: A1-A2: Entire anastomotic ring #1 A3-A5: Entire anastomotic ring #2 A6: Margin of shorter segment of bowel, signs sales representative sections A7: Opposite margin of shorter segment of bowel,one section A8-A10: Area of james-brown serosal discoloration and adhesions with possible diverticulum A11: Section from full thickness defect A12: Section with diverticuli A13: Marginof larger segment of bowel, signs sales representative sections A14: Opposite margin of larger segment of ronnie l A15: Possible diverticuli in larger segment of bowel B-FISTULA TRACT: The specimen consists of consists of an irregular piece of james-brown soft tissue measuring 1 x 0.9 x 0.5 cm. The specimen is bisected and entirely submitted in cassette B. MICROSCOPIC DESCRIPTION Microscopic examination is performed. Signed SIGNATURE ON FILE Sravanthi Lopez 11/29/19 1808 END OF REPORT PROCALCITONIN (PCT)2019-11-28 14:01:00 Test Item Value Reference Range Interpretation Comments PROCALCITONIN (PCT) 0.04 NG/ML 0.00-0.09 N INTERPRE TATIVE DATA:HIGH (test code = PROCAL) ACUITY INFECTIONS ALGORITHM:(i.e. high risk, severe se psis, ICU) If PCT concentration < 0.25 ng/mL or drops by 90%, stoppingantibio tic therapy is stro ngly encouraged. If PCT concentration < 0.50 ng/mL or drops by 80%, stoppingantibio tic therapy is enco uraged. If PCT concentr ation >0.50 ng/mL, st opping antibioticthera py is discouraged. I f PCT concentration > 1.00 ng/mL, stopping antibioticthera py is strongly discou raged. Consider contin uing antibiotics if clinically unstable. _ MODERATE ACUI TY INFECTIONS ALGORITHM:(hosp italized non-ICU patient s with respiratory tractinfections or sepsis) If PC T concentration < 0.10 ng/mL or drops by 90%, stoppingantibio tic therapy is stro ngly encouraged. If PCT concentration < 0.25 ng/mL or drops by 80%, stoppingantibio tic therapy is enco uraged. If PCT concentr ation >0.25 ng/mL, st opping antibioticthera py is discouraged. I f PCT concentration > 0.50 ng/mL, stopping antibioticthera py is strongly discou raged. Consider contin uing antibiotics if clinically unst able. Spec Comments: USE AM LAB DRAWComments to Phleb: USE AM LAB DRAWBASIC METABOLIC [id number] 05:23:00 Test Item Value Reference Range Interpretation Comments SODIUM (test code 140 MMOL/L 136-143 N = NA) POTASSIUM (test 4.0 MMOL/L 3.5-5.1 N code = K) CHLORIDE (test 104 MMOL/L 98-107 N code = CL) CARBON DIOXIDE 26 mmol/L 24-31 N (test code = CO2) GLUCOSE (test code 144 mg/dL 70-104 H = GLU) BLOOD UREA 10.2 MG/DL 7.0-21.0 N NITROGEN (test code = BUN) GLOMERULAR >=60 max >60 The estimated FILTRATION RATE estimate glomerular (test code = GFR) filtration rate is computed usingpatient ra ce, age (>18), sex, and serum creatinin e. If anyof the neede d data elements a re missing the Laboratory chilo ot compute an estimation of t he glomerular filtration rate . CREATININE (test 0.5 mg/dL 0.8-1.5 L code = CREAT) CALCIUM (test code 7.6 mg/dL 8.8-10.2 L = CA) CBC W/AUTO [id number] 04:49:00 Test Item Value Reference Range Interpretation Comments WHITE BLOOD CELL (test code = 9.0 x10 3/uL 4.8-10.8 N WBC) RED BLOOD CELL (test code = 3.10 x10 6/uL 4.20-5.40 L RBC) HEMOGLOBIN (test code = HGB) 8.9 g/dL 14.5-20 L HEMATOCRIT (test code = HCT) 28.4 % 37.0-47.0 L MEAN CELL VOLUME (test code = 91.6 fL 81.0-99.0 N MCV) MEAN CELL HGB (test code = MCH) 28.7 pg 27-31 N MEAN CELL HGB CONCENTRATION 31.3 G/DL 33-36.5 L (test code = MCHC) RED CELL DISTRIBUTION WIDTH 12.6 % 12.9-16.9 L (test code = RDW) PLATELET COUNT (test code = 253 150-440 N PLT) MEAN PLATELET VOLUME (test code 10.1 fL 8.9-12.4 N = MPV) NEUTROPHIL % (test code = NT%) 68.4 % 42.2-75.2 N LYMPHOCYTE % (test code = LY%) 20.2 % 20.5-51.1 L MONOCYTE % (test code = MO%) 6.8 % 1.7-9.3 N EOSINOPHIL % (test code = EO%) 3.9 % 0.0-7.0 N BASOPHIL % (test code = BA%) 0.3 % 0-2.5 N NEUTROPHIL # (test code = NT#) 6.15 x10 3/uL 1.80-7.70 N LYMPHOCYTE # (test code = LY#) 1.82 x10 3/uL 1.00-4.80 N MONOCYTE # (test code = MO#) 0.61 x10 3/uL 0.00-0.80 N EOSINOPHIL # (test code = EO#) 0.35 x10 3/uL 0.00-0.45 N BASOPHIL # (test code = BA#) 0.03 x10 3/uL 0.0-0.20 N - CT PELVIS [id number] 17:25:00Patient Name: JACOBY STRICKLAND Unit No: [id number] EXAMS: CPT CODE: [id number] CT PELVIS W/CONTRAST 36737 CT PELVIS ( with intravenous contrast ) Location Code: B2 CLINICAL INDICATIONS: Palma leakage, colovesical fistula TECHNIQUE: Volumetric acquisition of the pelvis after the administration of intravenous contrast. Axial and coronal images were interpreted. Dose lowering technique with automatic exposure control utilized. COMPARISON: None available. FINDINGS: Visualized loops of small bowel are within normal limits. There is mild inflammatory stranding in the pelvis adjacent to a surgically anastomosed loop of sigmoid colon. Mild diverticular disease in the descending colon noted. Mild induration within the presacral soft tissues noted with mild fluid seen. No rim-enhancing wall noted. No fluid collections in the anterior upper mid pelvis seen. Urinary bladder is decompressed with a [place] catheter. There are small foci of free air within the bladder seen. There is a loop of distal ileum adjacent to the bladder (images 49- 54) that appears to the have a small communication with the anterior wall of the bladder. Mild subcutaneous emphysema within the left lateral abdominal wall. Aorta tapers normally without aneurysmal dilatation. Visualized osseous structures demonstrate no significant abnormality IMPRESSION: 1. Findings are suspicious for a fistulous communication between a loop of distal ileum and the anterior wall of the bladder. Small foci of gas within the bladder noted. 2. Mild induration within the pelvis noted. Prior surgical anastomosis of the sigmoid colon seen. Surgical drain seen. No fluid collections. 3. Induration within the presacral soft tissues, po ssibly with phlegmon, seroma or resolving hematoma. This does not appear to have a thick wall to suggest an abscess. [id number] Reported and signed by: Phil Figueredo M.D. Name: JACOBY STRICKLAND [facility] Phys: Jemima Romero MD [id number] : 1970 Age: 49 Sex: [place] [address] Loc: P.0574 1 Exam Date: 11/27/2019 Status: ADM IN PH: FAX: PAGE 1 Signed Report (CONTINUED) Patient Name: JACOBY STRICKLAND Unit No: [id number] EXAMS: CPT CODE: [id number] CT PELVIS W/CONTRAST 00320 <Continued> CC: Jemima Aldana MD Technologist: Dez Malagon; Brit Myles CTDI: 43.22 DLP: 1341 Trscr Dt/Tm: 11/27/2019 (1725) by:[email or web address] Date/Time: 11/27/2019 (1729) Name: JACOBY STRICKLAND [facility] Phys: Jemima Romero MD [address] : 1970 Age: 49 Sex: [place] [address] Loc: P.0574 1 Exam Date: 11/27/2019 Status: ADM IN PH: FAX: PAGE 2 Signed ReportCBC W/AUTO [id number] 10:19:00 Test Item Value Reference Range Interpretation Comments WHITE BLOOD CELL (test code = 13.0 x10 3/uL 4.8-10.8 H WBC) RED BLOOD CELL (test code = 3.39 x10 6/uL 4.20-5.40 L RBC) HEMOGLOBIN (test code = HGB) 10.0 g/dL 14.5-20 L HEMATOCRIT (test code = HCT) 31.2 % 37.0-47.0 L MEAN CELL VOLUME (test code = 92.0 fL 81.0-99.0 N MCV) MEAN CELL HGB (test code = 29.5 pg 27-31 N MCH) MEAN CELL HGB CONCENTRATION 32.1 G/DL 33-36.5 L (test code = MCHC) RED CELL DISTRIBUTION WIDTH 12.8 % 12.9-16.9 L (test code = RDW) PLATELET COUNT (test code = 211 150-440 N PLT) MEAN PLATELET VOLUME (test 10.1 fL 8.9-12.4 N code = MPV) NEUTROPHIL % (test code = NT%) 79.0 % 42.2-75.2 H LYMPHOCYTE % (test code = LY%) 12.3 % 20.5-51.1 L MONOCYTE % (test code = MO%) 6.2 % 1.7-9.3 N EOSINOPHIL % (test code = EO%) 1.8 % 0.0-7.0 N BASOPHIL % (test code = BA%) 0.2 % 0-2.5 N NEUTROPHIL # (test code = NT#) 10.29 x10 3/uL 1.80-7.70 H LYMPHOCYTE # (test code = LY#) 1.61 x10 3/uL 1.00-4.80 N MONOCYTE # (test code = MO#) 0.81 x10 3/uL 0.00-0.80 H EOSINOPHIL # (test code = EO#) 0.24 x10 3/uL 0.00-0.45 N BASOPHIL # (test code = BA#) 0.03 x10 3/uL 0.0-0.20 N BASIC METABOLIC [id number] 05:09:00 Test Item Value Reference Range Interpretation Comments SODIUM (test code 138 MMOL/L 136-143 N = NA) POTASSIUM (test 3.9 MMOL/L 3.5-5.1 N code = K) CHLORIDE (test 103 MMOL/L 98-107 N code = CL) CARBON DIOXIDE 21 mmol/L 24-31 L (test code = CO2) GLUCOSE (test code 157 mg/dL 70-104 H = GLU) BLOOD UREA 5.1 MG/DL 7.0-21.0 L NITROGEN (test code = BUN) GLOMERULAR >=60 max >60 The estimated FILTRATION RATE estimate glomerular (test code = GFR) filtration rate is computed usingpatient ra ce, age (>18), sex, and serum creatinin e. If anyof the neede d data elements a re missing the Laboratory chilo ot compute an estimation of t he glomerular filtration rate . CREATININE (test 0.6 mg/dL 0.8-1.5 L code = CREAT) CALCIUM (test code 7.8 mg/dL 8.8-10.2 L = CA) [id number] 05:06:00 Test Item Value Reference Range Interpretation Comments MAGNESIUM (test code = MAG) 1.6 mg/dL 1.4-2.6 N Coronavirus 2019 nCoV [id number] 22:30:00 Test Item Value Reference Range Interpretation Comments Coronavirus 2019 nCoV Bedside (test Negative NEGATIVE code = [id number]) Emergent procedure? YESLACTIC [id number] 22:26:00 Test Item Value Reference Range Interpretation Comments LACTIC ACID (test code = LACT) 5.9 mg/dL 4.5-18.0 N CBC W/AUTO [id number] 22:16:00 Test Item Value Reference Range Interpretation Comments WHITE BLOOD CELL (test code = 13.2 x10 3/uL 4.8-10.8 H WBC) RED BLOOD CELL (test code = 3.34 x10 6/uL 4.20-5.40 L RBC) HEMOGLOBIN (test code = HGB) 9.8 g/dL 14.5-20 L HEMATOCRIT (test code = HCT) 30.9 % 37.0-47.0 L MEAN CELL VOLUME (test code = 92.5 fL 81.0-99.0 N MCV) MEAN CELL HGB (test code = 29.3 pg 27-31 N MCH) MEAN CELL HGB CONCENTRATION 31.7 G/DL 33-36.5 L (test code = MCHC) RED CELL DISTRIBUTION WIDTH 12.9 % 12.9-16.9 N (test code = RDW) PLATELET COUNT (test code = 206 150-440 N PLT) MEAN PLATELET VOLUME (test 9.9 fL 8.9-12.4 N code = MPV) NEUTROPHIL % (test code = NT%) 78.7 % 42.2-75.2 H LYMPHOCYTE % (test code = LY%) 12.9 % 20.5-51.1 L MONOCYTE % (test code = MO%) 6.3 % 1.7-9.3 N EOSINOPHIL % (test code = EO%) 1.4 % 0.0-7.0 N BASOPHIL % (test code = BA%) 0.2 % 0-2.5 N NEUTROPHIL # (test code = NT#) 10.35 x10 3/uL 1.80-7.70 H LYMPHOCYTE # (test code = LY#) 1.70 x10 3/uL 1.00-4.80 N MONOCYTE # (test code = MO#) 0.83 x10 3/uL 0.00-0.80 H EOSINOPHIL # (test code = EO#) 0.18 x10 3/uL 0.00-0.45 N BASOPHIL # (test code = BA#) 0.03 x10 3/uL 0.0-0.20 N - XR CHEST 1 [id number] 22:05:00Patient Name: JACOBY STRICKLAND KOFI Unit No: [id number] EXAMS: CPT CODE: [id number] XR CHEST 1 V 19677 Exam: Chest portable erect Location: H 12 History: Fever Comparison: None. Findings: A left perihilar infiltrate is present. The remainder of the lungs is clear. The pulmonary vasculature is normal. The heart size is normal. The mediastinal silhouette is unremarkable. The bony thorax is intact. Impression: Left perihilar pneumonia. at 2205 Reported and signed by: JOSEPH GORDON M.D. CC: Jemima Aldana MD; Butch Shaikh MD Technologist: Mary Jo Morocho Fluoro Time: DAP (Gy m2): Air Kerma (mGy): Trscr Dt/Tm: 11/25/2019 (2204) by:Aby Printed Date/Time: 11/25/2019 (2207) Name: STRICKLANDJACOBY [facility] Phys: Butch Marie MD [address] : 1970 Age: 49 Sex: F [address]: [id number] Loc: P.0574 1 Exam Date: 11/25/2019 Status: ADM IN PH: FAX: PAGE 1 Signed ReportBASIC METABOLIC [id number] 05:53:00 Test Item Value Reference Range Interpretation Comments SODIUM (test code 140 MMOL/L 136-143 N = NA) POTASSIUM (test 3.9 MMOL/L 3.5-5.1 N code = K) CHLORIDE (test 106 MMOL/L 98-107 N code = CL) CARBON DIOXIDE 22 mmol/L 24-31 L (test code = CO2) GLUCOSE (test code 137 mg/dL 70-104 H = GLU) BLOOD UREA 7.0 MG/DL 7.0-21.0 N NITROGEN (test code = BUN) GLOMERULAR >=60 max >60 The estimated FILTRATION RATE estimate glomerular (test code = GFR) filtration rate is computed usingpatient ra ce, age (>18), sex, and serum creatinin e. If anyof the neede d data elements a re missing the Laboratory chilo ot compute an estimation of t he glomerular filtration rate . CREATININE (test 0.6 mg/dL 0.8-1.5 L code = CREAT) CALCIUM (test code 7.7 mg/dL 8.8-10.2 L = CA) [id number] 05:53:00 Test Item Value Reference Range Interpretation Comments MAGNESIUM (test code = MAG) 1.7 mg/dL 1.4-2.6 N CBC W/AUTO [id number] 05:18:00 Test Item Value Reference Range Interpretation Comments WHITE BLOOD CELL (test code = 11.7 x10 3/uL 4.8-10.8 H WBC) RED BLOOD CELL (test code = 3.46 x10 6/uL 4.20-5.40 L RBC) HEMOGLOBIN (test code = HGB) 10.3 g/dL 14.5-20 L HEMATOCRIT (test code = HCT) 32.8 % 37.0-47.0 L MEAN CELL VOLUME (test code = 94.8 fL 81.0-99.0 N MCV) MEAN CELL HGB (test code = MCH) 29.8 pg 27-31 N MEAN CELL HGB CONCENTRATION 31.4 G/DL 33-36.5 L (test code = MCHC) RED CELL DISTRIBUTION WIDTH 13.1 % 12.9-16.9 N (test code = RDW) PLATELET COUNT (test code = 210 150-440 N PLT) MEAN PLATELET VOLUME (test code 10.2 fL 8.9-12.4 N = MPV) NEUTROPHIL % (test code = NT%) 74.5 % 42.2-75.2 N LYMPHOCYTE % (test code = LY%) 18.3 % 20.5-51.1 L MONOCYTE % (test code = MO%) 5.6 % 1.7-9.3 N EOSINOPHIL % (test code = EO%) 0.9 % 0.0-7.0 N BASOPHIL % (test code = BA%) 0.3 % 0-2.5 N NEUTROPHIL # (test code = NT#) 8.70 x10 3/uL 1.80-7.70 H LYMPHOCYTE # (test code = LY#) 2.14 x10 3/uL 1.00-4.80 N MONOCYTE # (test code = MO#) 0.65 x10 3/uL 0.00-0.80 N EOSINOPHIL # (test code = EO#) 0.11 x10 3/uL 0.00-0.45 N BASOPHIL # (test code = BA#) 0.04 x10 3/uL 0.0-0.20 N LACTIC [id number] 03:25:00 Test Item Value Reference Range Interpretation Comments LACTIC ACID (test code = LACT) 10.0 mg/dL 4.5-18.0 N BASIC METABOLIC [id number] 06:47:00 Test Item Value Reference Range Interpretation Comments SODIUM (test code 136 MMOL/L 136-143 N = NA) POTASSIUM (test 3.9 MMOL/L 3.5-5.1 N code = K) CHLORIDE (test 103 MMOL/L 98-107 N code = CL) CARBON DIOXIDE 24 mmol/L 24-31 N (test code = CO2) GLUCOSE (test code 181 mg/dL 70-104 H = GLU) BLOOD UREA 9.1 MG/DL 7.0-21.0 N NITROGEN (test code = BUN) GLOMERULAR >=60 max >60 The estimated FILTRATION RATE estimate glomerular (test code = GFR) filtration rate is computed usingpatient ra ce, age (>18), sex, and serum creatinin e. If anyof the neede d data elements a re missing the Laboratory chilo ot compute an estimation of t he glomerular filtration rate . CREATININE (test 0.7 mg/dL 0.8-1.5 L code = CREAT) CALCIUM (test code 8.1 mg/dL 8.8-10.2 L = CA) [id number] 06:47:00 Test Item Value Reference Range Interpretation Comments MAGNESIUM (test code = MAG) 1.8 mg/dL 1.4-2.6 N CBC W/AUTO [id number] 06:46:00 Test Item Value Reference Range Interpretation Comments WHITE BLOOD CELL (test code = 14.3 x10 3/uL 4.8-10.8 H WBC) RED BLOOD CELL (test code = 3.85 x10 6/uL 4.20-5.40 L RBC) HEMOGLOBIN (test code = HGB) 11.3 g/dL 14.5-20 L HEMATOCRIT (test code = HCT) 35.7 % 37.0-47.0 L MEAN CELL VOLUME (test code = 92.7 fL 81.0-99.0 N MCV) MEAN CELL HGB (test code = 29.4 pg 27-31 N MCH) MEAN CELL HGB CONCENTRATION 31.7 G/DL 33-36.5 L (test code = MCHC) RED CELL DISTRIBUTION WIDTH 13.0 % 12.9-16.9 N (test code = RDW) PLATELET COUNT (test code = 263 150-440 N PLT) MEAN PLATELET VOLUME (test 10.5 fL 8.9-12.4 N code = MPV) NEUTROPHIL % (test code = NT%) 81.3 % 42.2-75.2 H LYMPHOCYTE % (test code = LY%) 11.8 % 20.5-51.1 L MONOCYTE % (test code = MO%) 6.3 % 1.7-9.3 N EOSINOPHIL % (test code = EO%) 0.1 % 0.0-7.0 N BASOPHIL % (test code = BA%) 0.1 % 0-2.5 N NEUTROPHIL # (test code = NT#) 11.62 x10 3/uL 1.80-7.70 H LYMPHOCYTE # (test code = LY#) 1.69 x10 3/uL 1.00-4.80 N MONOCYTE # (test code = MO#) 0.90 x10 3/uL 0.00-0.80 H EOSINOPHIL # (test code = EO#) 0.01 x10 3/uL 0.00-0.45 N BASOPHIL # (test code = BA#) 0.02 x10 3/uL 0.0-0.20 N URINALYSIS [id number] 22:35:00 Test Item Value Reference Range Interpretation Comments UA COLOR (test code = YELLOW DISCRIPT YELLOW COLU) UA APPEARANCE (test code SLIGHTLY CLOUDY CLEAR A = APPU) DISCRIPT UA GLUCOSE DIPSTICK (test NEGATIVE mg/dL NEGATIVE code = DGLUU) UA BILIRUBIN DIPSTICK NEGATIVE NEGATIVE (test code = BILU) UA KETONE DIPSTICK (test NEGATIVE mg/dL NEGATIVE code = KETU) UA SPECIFIC GRAVITY (test 1.025 1.005-1.030 code = SGU) UA BLOOD DIPSTICK (test SMALL NEGATIVE A code = ALPESH) UA PH DIPSTICK (test code 6.0 5.0-9.0 = CHAVO) UA PROTEIN DIPSTICK (test NEGATIVE mg/dL NEGATIVE code = PROU) UA UROBILINOGEN DIPSTICK 0.2 mg/dL 0.2-1.0 (test code = URO) UA NITRITE DIPSTICK (test NEGATIVE NEGATIVE code = SHELBIE) UA LEUKOCYTE ESTERASE TRACE NEGATIVE A DIPSTICK (test code = LEUU) UA [id number] 22:35:00 Test Item Value Reference Range Interpretation Comments UA WBC (test code = WBCU) 3-5 #WBC/HPF 0-2 A UA RBC (test code = RBCU) 3-5 #RBC/HPF 0-2 A UA BACTERIA (test code = OCCASIONAL /HPF NONE-TRACE A BACU) UA SQUAMOUS CELLS (test code OCCASIONAL /LPF NONE-TRACE = SQU) URINALYSIS [id number] 22:32:00 Test Item Value Reference Range Interpretation Comments UA COLOR (test code = YELLOW DISCRIPT YELLOW COLU) UA APPEARANCE (test code SLIGHTLY CLOUDY CLEAR A = APPU) DISCRIPT UA GLUCOSE DIPSTICK (test NEGATIVE mg/dL NEGATIVE code = DGLUU) UA BILIRUBIN DIPSTICK NEGATIVE NEGATIVE (test code = BILU) UA KETONE DIPSTICK (test NEGATIVE mg/dL NEGATIVE code = KETU) UA SPECIFIC GRAVITY (test 1.025 1.005-1.030 code = SGU) UA BLOOD DIPSTICK (test SMALL NEGATIVE A code = ALPESH) UA PH DIPSTICK (test code 6.0 5.0-9.0 = CHAVO) UA PROTEIN DIPSTICK (test NEGATIVE mg/dL NEGATIVE code = PROU) UA UROBILINOGEN DIPSTICK 0.2 mg/dL 0.2-1.0 (test code = URO) UA NITRITE DIPSTICK (test NEGATIVE NEGATIVE code = SHELBIE) UA LEUKOCYTE ESTERASE TRACE NEGATIVE A DIPSTICK (test code = LEUU) UA [id number] 22:32:00 Test Item Value Reference Range Interpretation Comments UA WBC (test code = WBCU) #WBC/HPF 0-2 UA RBC (test code = RBCU) #RBC/HPF 0-2 UA BACTERIA (test code = BACU) /HPF NONE-TRACE UA SQUAMOUS CELLS (test code = SQU) /LPF NONE-TRACE URINALYSIS [id number] 22:32:00 Test Item Value Reference Range Interpretation Comments UA COLOR (test code = YELLOW DISCRIPT YELLOW COLU) UA APPEARANCE (test code SLIGHTLY CLOUDY CLEAR A = APPU) DISCRIPT UA GLUCOSE DIPSTICK (test NEGATIVE mg/dL NEGATIVE code = DGLUU) UA BILIRUBIN DIPSTICK NEGATIVE NEGATIVE (test code = BILU) UA KETONE DIPSTICK (test NEGATIVE mg/dL NEGATIVE code = KETU) UA SPECIFIC GRAVITY (test 1.025 1.005-1.030 code = SGU) UA BLOOD DIPSTICK (test SMALL NEGATIVE A code = ALPESH) UA PH DIPSTICK (test code 6.0 5.0-9.0 = CHAVO) UA PROTEIN DIPSTICK (test NEGATIVE mg/dL NEGATIVE code = PROU) UA UROBILINOGEN DIPSTICK 0.2 mg/dL 0.2-1.0 (test code = URO) UA NITRITE DIPSTICK (test NEGATIVE NEGATIVE code = SHELBIE) UA LEUKOCYTE ESTERASE TRACE NEGATIVE A DIPSTICK (test code = LEUU) UA [id number] 22:32:00 Test Item Value Reference Range Interpretation Comments UA WBC (test code = WBCU) #WBC/HPF 0-2 UA RBC (test code = RBCU) #RBC/HPF 0-2 UA BACTERIA (test code = BACU) /HPF NONE-TRACE UA SQUAMOUS CELLS (test code = SQU) /LPF NONE-TRACE COMPREHENSIVE METABOLIC [id number] 11:05:00 Test Item Value Reference Range Interpretation Comments SODIUM (test code = 139 MMOL/L 136-143 N NA) POTASSIUM (test 4.2 MMOL/L 3.5-5.1 N code = K) CHLORIDE (test code 102 MMOL/L 98-107 N = CL) CARBON DIOXIDE 26 mmol/L 24-31 N (test code = CO2) GLUCOSE (test code 125 mg/dL 70-104 H = GLU) BLOOD UREA NITROGEN 10.6 MG/DL 7.0-21.0 N (test code = BUN) GLOMERULAR >=60 max >60 The estimated FILTRATION RATE estimate glomerular (test code = GFR) filtration rate is computed usingpatient ra ce, age (>18), sex, and serum creatinin e. If anyof the ne eded data elements a re missing the Laboratory chilo ot compute an estimation of t he glomerular filtration rate . CREATININE (test 0.7 mg/dL 0.8-1.5 L code = CREAT) TOTAL PROTEIN (test 7.9 g/dL 6.3-8.3 N code = PROT) ALBUMIN (test code 4.2 G/DL 3.5-5.0 N = ALB) CALCIUM (test code 8.6 mg/dL 8.8-10.2 L = CA) BILIRUBIN TOTAL 0.4 mg/dL 0.2-1.0 N (test code = BILT) SGOT/AST (test code 24 IU/L 10-34 N = AST) SGPT/ALT (test code 30 U/L 10-36 N = ALT) ALKALINE 91 U/L 32-104 N PHOSPHATASE (test code = ALKP) RECOLLECTNovel Coronavirus 2019 [id number] 11:20:00 Test Item Value Reference Range Interpretation Comments Novel Coronavirus 2019 Inhouse (test Negative Negative code = COVNONPUI) Testing Criteria: Preprocedure ScreeningTHROMBOPLASTIN TIME PARTIAL 2019-11-20 10:09:00 Test Item Value Reference Range Interpretation Comments THROMBOPLASTIN TIME 32.5 SECONDS 26.0-35.9 N INTERPRE TATIVE PARTIAL (test code = : erapeut PTT) range: Unfractionated heparin:47 - 71 seconds Argatroban:1.5 to 3 times the basel ine PTT CBC W/AUTO [id number] 10:02:00 Test Item Value Reference Range Interpretation Comments WHITE BLOOD CELL (test code = 9.0 x10 3/uL 4.8-10.8 N WBC) RED BLOOD CELL (test code = 4.50 x10 6/uL 4.20-5.40 N RBC) HEMOGLOBIN (test code = HGB) 13.2 g/dL 14.5-20 L HEMATOCRIT (test code = HCT) 41.6 % 37.0-47.0 N MEAN CELL VOLUME (test code = 92.4 fL 81.0-99.0 N MCV) MEAN CELL HGB (test code = MCH) 29.3 pg 27-31 N MEAN CELL HGB CONCENTRATION 31.7 G/DL 33-36.5 L (test code = MCHC) RED CELL DISTRIBUTION WIDTH 13.2 % 12.9-16.9 N (test code = RDW) PLATELET COUNT (test code = 263 150-440 N PLT) MEAN PLATELET VOLUME (test code 10.0 fL 8.9-12.4 N = MPV) NEUTROPHIL % (test code = NT%) 66.1 % 42.2-75.2 N LYMPHOCYTE % (test code = LY%) 25.8 % 20.5-51.1 N MONOCYTE % (test code = MO%) 5.1 % 1.7-9.3 N EOSINOPHIL % (test code = EO%) 1.9 % 0.0-7.0 N BASOPHIL % (test code = BA%) 0.7 % 0-2.5 N NEUTROPHIL # (test code = NT#) 5.93 x10 3/uL 1.80-7.70 N LYMPHOCYTE # (test code = LY#) 2.31 x10 3/uL 1.00-4.80 N MONOCYTE # (test code = MO#) 0.46 x10 3/uL 0.00-0.80 N EOSINOPHIL # (test code = EO#) 0.17 x10 3/uL 0.00-0.45 N BASOPHIL # (test code = BA#) 0.06 x10 3/uL 0.0-0.20 N CHEM [id number] 11:26:001.8[facility] [id number] 11:26:003.0 [facility] HermannCHEM [id number] 11:26:26722Mzgqpnwz HermannCHEM PANEL 2017-01-02 11:26:003.7[facility] [id number] 11:26:68222Wbdxmmnr [facility]CHE[facility] ZBRXZ8725-05-21 11:26:000.73[facility] [id number] 11:26:45032Djtlzzxr [facility]annCHE[facility] [id number] 11:26:0029[facility]annCHE[facility] VHNMM3379-10-55 11:26:007.7[facility] MFBZV8729-78-04 11:26:007.5 [facility] [id number] 11:26:0097[facility]annCHEM PANEL 2017-01-02 11:26:009[facility] GhkwjzrYIFOTRQMHI4702-54-51 11:26:09592Wqvtyzzg KdlhzihNRCSSROEXR1219-84-85 11:26:0012.6[facility] RyfcvzkXBNSRSVUAV0322-86-17 11:26:009.0[facility] PyqrgbyKDFROLWKJL0913-67-01 11:26:0011.4[facility] HYTFZUKISS4624-79-95 11:26:0090.2[facility] NvdvxodMQZISMSXFN3145-85-20 11:26:00 34.3[facility] LjomxioURWFPPNSNG3021-66-29 11:26:009.0[facility]annHEMATOLOGY 2017-01-02 11:26:003.80[facility] IoxdlijAVDIGXUEUZ4672-70-43 11:26:00 Test Item Value Reference Range Interpretation Comments MCH (test code = MCH) 30.0 pg 27.0-31.0 [facility] FprfeafUUPMIAIKUJ3441-11-70 11:26:0033.2[facility]annHEMATOLOGY 2017-01-02 11:26:0024.8[facility] HteclwgQXUKVSWTMO6279-28-09 11:26:0066.6[facility] FdevthqEUYPVZHKMM6857-82-68 11:26:006.4[facility] OtykpbiIPYPMXHWRE0683-92-36 11:26:001.3[facility] LgimgjhKINPLPYCWM6729-33-77 11:26:000.9[facility] ERKDMSOQGU6664-09-67 11:26:006.0[facility] RchctzgHJLSUYHWUJ3814-68-99 11:26:000.1 [facility] VbrbacxSGGIUWQTGL4223-78-89 11:26:000.6[facility]annHEMATOLOGY 2017-01-02 11:26:000.1[facility] XreqetsYBFNHROBTF6827-44-36 11:26:002.2[facility]annCHEM DMSCG8454-83-19 20:20:001.6[facility]annCHE[facility] AHXEW0198-57-14 17:16:12687Ndduceca HermannCHEM GSCRT8556-84-98 17:16:0077[facility]ann[facility] CNYKI3049-70-80 17:16:000.8[facility]annCHE[facility] DTSNS7975-20-26 17:16:0011 [facility] YGGKJ3902-96-30 17:16:0022[facility]annCHEM PANEL 2017-01-01 17:16:0082[facility]annCHE[facility] KEKPL9245-28-27 17:16:0027[facility]annCHE[facility] NLUWY6330-83-01 17:16:003.8[facility]annCHE[facility] HZNRT7040-11-06 17:16:007.9[facility]annCHE[facility] LHMDH8082-81-74 17:16:009.4[facility]annCHE[facility] LWVHV9325-66-75 17:16:003.7[facility]annCHE[facility] BDYDR9359-27-70 17:16:86216 [facility]ann[facility] ISVJA8036-25-43 17:16:45383Xmxkacfc HermannCHEM PANEL 2017-01-01 17:16:50231Rillqenn HermannCHEM MRLHE3571-54-32 17:16:000.91[facility] ELPYW1248-89-28 17:16:0012[facility]CHE[facility] SEOJF1467-74-14 17:16:000.9[facility]CHE[facility] XJNIY9386-63-85 17:16:0012.7[facility] RLWVM0091-34-72 17:16:004.1[facility]annCHE[facility] BNMLS0459-90-62 17:16:0013 [facility] FgvtgauPNZOLWADVL0372-22-86 17:16:0080.5[facility]annHEMATOLOGY 2017-01-01 17:16:000.3[facility] WwbuttxILRGXUTEGQ5324-94-52 17:16:0013.9[facility] TsoqpwnBOPSIQCLIA0996-00-62 17:16:005.1[facility] OxmjbslFRLGGMPLZY6079-13-41 17:16:00Normal (01/01/17 12:16 PM)[facility] AzpmqdzUBLJFNDHOR4274-29-81 17:16:00 Normal (01/01/17 12:16 PM)[facility] FfqsyriPWZVVRUYRB8205-82-90 17:16:000.0[facility] OsthodoTKTZCIUALC1491-99-63 17:16:000.1[facility] AabiyheSHEEUYMDTK4024-33-57 17:16:000.2[facility] MkohcwoZECFEWKTNB1867-99-11 17:16:0013.7[facility] JYILUYWRSK6503-88-74 17:16:002.4[facility] FwusggnUKINWGISBK5608-76-20 17:16:000.9 [facility] RuwzkamQPDTWDCDTS9002-28-19 17:16:009.1[facility] HermannHEMATOLOGY 2017-01-01 17:16:51387Fdakacte EnznphiPMYXQOHDON5278-82-90 17:16:0044.3[facility] DfjawoyYEDMJVNWIB4353-86-45 17:16:0089.6[facility] YsnxnxbIUTFRYJLXS5531-87-63 17:16:00 Test Item Value Reference Range Interpretation Comments MCH (test code = MCH) 29.6 pg 27.0-31.0 [facility] IkrhbhoBYAVXMWRBO0545-55-98 17:16:0012.7[facility] 2017-01-01 17:16:0033.1[facility] TgihxirEDHAIYBNQH7481-39-77 17:16:0017.0[facility] FqcgbgeOLKHXOLNCV5797-29-41 17:16:0014.7[facility] PxwysrhFZSMIHAEKQ4200-24-64 17:16:004.95[facility] OOHAB7217-70-40 17:16:00Yellow *NA*(01/01/17 12:16 PM)[facility] DJPAY7523-32-73 17:16:00Slight *ABN*(01/01/17 12:16 PM)[facility] VLRFV7924-19-89 17:16:006.0[facility] PVYBD0627-11-23 17:16:001.016[facility] BOZQA7339-51-38 17:16:001[facility] KXSMD4263-41-65 17:16:006[facility] AND NFCJQ9458-63-84 17:16:001[facility] [id number] 17:16:00Negative *NA*(01/01/17 12:16 PM)[facility] [id number] 17:16:00Negative (01/01/17 12:16 PM)[facility] [id number] 17:16:00Trace *ABN*(01/01/17 12:16 PM)[facility] DHZUL5600-26-67 17:16:00Negative (01/01/17 12:16 PM)[facility] QENKM1205-17-87 10:21:002.0[facility] EEMJI0388-35-34 10:21:00Negative (10/09/16 5:21 AM)[facility] PCXTL7078-05-98 10:21:005[facility] EPMHP0597-93-01 10:21:00Negative (10/09/16 5:21 AM)[facility] KHBSI8742-55-60 10:21:001.030[facility] HXITG8432-23-50 10:21:004 [facility] LPXKE2299-31-58 10:21:00Small *ABN*(10/09/16 5:21 AM) [facility] XIFME6129-45-10 10:21:00Negative *NA*(10/09/16 5:21 AM) [facility] FVLSI5037-69-15 10:21:005.0[facility] NFHKL7800-91-39 10:21:00Marked *ABN*(10/09/16 5:21 AM)[facility] YEFXW8839-34-02 10:21:00Dark Yellow *NA*(10/09/16 5:21 AM)[facility] [id number] 10:21:00Negative (10/09/16 5:21 AM)[facility]OLOGY 2016-10-09 02:33:00Negative (10/08/16 9:33 PM)[facility] 2016-10-09 02:33:00Negative (10/08/16 9:33 PM)[facility]
[2020-03-24] MEDS ORDERED: LIDOCAINE 4% PATCH ONE (09:32)
[2020-03-24] MEDS ORDERED: KETOROLAC 30 MG/ML INJ ONE (09:32)
--- NOTE | 2020-03-24 10:03 | EDPHYS ---
Physician Documentation [facility] Name: Catherine Herring Age: 50 yrs Sex: Female : 1970 Arrival Date: 03/24/2020 Time: 08:15 Bed 5 Private MD: ED Physician Anish Tavares HPI: 03/24 08:25 This 50 yrs old Female presents to ER via Unassigned with complaints of Back pm1 Pain. 08:25 The patient presents with pain that is acute, with no known mechanism of injury. The pm1 symptoms are located in the right mid back. Onset: The symptoms/episode began/occurred this morning. The pain does not radiate. Associated signs and symptoms: Pertinent negatives: abdominal pain, dysuria, fever, hematuria, nausea, numbness, tingling, vomiting. The problem was sustained from unknown cause. Modifying factors: The patient symptoms are alleviated by nothing, the patient symptoms are aggravated by movement. Severity of symptoms: in the emergency department the symptoms are actually worse. The patient has experienced a previous episode, many years ago, symptoms are a little different, pain is more to the right flank area. The patient has not recently seen a physician. Historical: - Allergies: 08:29 No Known Allergies; iw - PMHx: 08:27 Diverticulitis; iw - PSHx: 08:27 Partial hysterectomy; Tubal ligation; Cholecystectomy; iw ROS: 08:29 Constitutional: Negative for fever, chills, and weight loss, Cardiovascular: Negative pm1 for chest pain, palpitations, and edema, Respiratory: Negative for shortness of breath, cough, wheezing, and pleuritic chest pain, Abdomen/GI: Negative for abdominal pain, nausea, vomiting, diarrhea, and constipation. 08:29 : Negative for injury, bleeding, discharge, and swelling, MS/Extremity: Negative for injury and deformity, Skin: Negative for injury, rash, and discoloration, Neuro: Negative for headache, weakness, numbness, tingling, and seizure. 08:29 Back: Positive for pain with movement, flank pain, on the right, Negative for injury or acute deformity, decreased range of motion. Exam: 08:29 Constitutional: This is a well developed, well nourished patient who is awake, alert, pm1 and in no acute distress. Head/Face: Normocephalic, atraumatic. 08:29 Respiratory: Lungs have equal breath sounds bilaterally, clear to auscultation and percussion. No rales, rhonchi or wheezes noted. No increased work of breathing, no retractions or nasal flaring. Abdomen/GI: Soft, non-tender, with normal bowel sounds. No distension or tympany. No guarding or rebound. No evidence of tenderness throughout. 08:29 Skin: Warm, dry with normal turgor. Normal color with no rashes, no lesions, and no evidence of cellulitis. MS/ Extremity: Pulses equal, no cyanosis. Neurovascular intact. Full, normal range of motion. 08:29 Cardiovascular: Exam negative for acute changes, Rate: normal, Rhythm: regular, Pulses: no pulse deficits are appreciated, Edema: is not appreciated. 08:29 Back: pain, that is mild, of the right mid back, normal spinal alignment noted, vertebral tenderness, is not appreciated, muscle spasm, is appreciated in the right mid back. 08:29 Neuro: Exam negative for acute changes, Orientation: is normal, Mentation: is normal, Motor: is normal, moves all fours, Sensation: is normal, no obvious gross deficits. Vital Signs: 08:43 BP 130 / 88; Pulse 100; Resp 22; Temp 97.8; Pulse Ox 96% on R/A; Pain 10/10; em 09:24 BP 126 / 77; Pulse 90; Resp 18; Pulse Ox 97% on R/A; Pain 7/10; em MDM: 08:20 Patient medically screened. pm1 10:02 Data reviewed: vital signs. Data interpreted: Pulse oximetry: on room air is 97 %. pm1 Interpretation: normal. Counseling: I had a detailed discussion with the patient and/or guardian regarding: the historical points, exam findings, and any diagnostic results supporting the discharge/admit diagnosis, lab results, radiology results, the need for outpatient follow up, to return to the emergency department if symptoms worsen or persist or if there are any questions or concerns that arise at home. 03/24 08:25 Order name: Basic Metabolic Panel; Complete Time: 09:09 pm1 03/24 08:25 Order name: CBC with Diff; Complete Time: 09: pm1 03/24 08:25 Order name: CT Stone Protocol; Complete Time: 09: pm1 03/24 08:25 Order name: Hepatic Function; Complete Time: 09:09 pm1 03/24 08:25 Order name: Lipase; Complete Time: 09:09 pm1 03/24 10:21 Order name: Urine Dipstick--Ancillary (enter results) bd 03/24 08:25 Order name: IV Saline Lock; Complete Time: 08:43 pm1 03/24 08:25 Order name: Labs collected and sent; Complete Time: 08:43 pm1 03/24 08:25 Order name: Urine Dipstick-Ancillary (obtain specimen); Complete Time: 10:15 pm1 Administered Medications: 08:30 Drug: NS 0.9% 1000 ml Route: IV; Rate: 1000 ml; Site: right antecubital; em 10:33 Follow up: IV Status: Completed infusion; IV Intake: 1000ml em 08:30 Drug: Zofran (Ondansetron) 4 mg Route: IVP; Site: right antecubital; em 09:19 Follow up: Response: No adverse reaction em 08:32 Drug: morphine 4 mg Route: IVP; Site: right antecubital; em 09:19 Follow up: Response: No adverse reaction; Pain is unchanged, physician notified em 09:27 Drug: TORadol 30 mg Route: IVP; Site: right antecubital; em 10:02 Follow up: Response: No adverse reaction; Marked relief of symptoms; Pain is decreased em 09:27 Drug: Lidoderm 5 % (700 mg/patch) 1 patches Route: Topical; Site: affected area; em 10:02 Follow up: Response: No adverse reaction; Marked relief of symptoms; Pain is decreased em Disposition: 13:15 Co-signature as Attending Physician, Anish Tavares MD. rn Disposition: 03/24/20 10:02 Discharged to Home. Impression: Low back pain. - Condition is Stable. - Discharge Instructions: Back Pain, Adult, Musculoskeletal Pain, Back Injury Prevention, [id number]. - Prescriptions for Tylenol- Codeine #3 300-30 mg Oral Tablet - take 2 tablets by ORAL route every 6 hours As needed; 20 tablet. Lidoderm 5 % Topical adhesive patch,medicated - apply 1 patch by TRANSDERMAL route once daily As needed apply for up to 12 hours on and 12 hours off within 24 hour period; 30 Transdermal Patch. Diclofenac Sodium 75 mg Oral Tablet Sustained Release - take 1 tablet by ORAL route 2 times per day; 30 tablet. - Medication Reconciliation Form, Thank You Letter, Antibiotic Education, Prescription Opioid Use form. - Follow up: Emergency Department; When: As needed; Reason: Worsening of condition. Follow up: Private Physician; When: 2 - 3 days; Reason: Recheck today's complaints, Continuance of care, Re-evaluation by your physician. - Problem is new. - Symptoms have improved. Signatures: Dispatcher [employer] EDTom Brody RN RN em Williams, Irene, RN RN iw Nieto, Roman, MD MD rn Marinas, Patrick, [employer] pm1 Corrections: (The following items were deleted from the chart) 10:34 10:02 03/24/2020 10:02 Discharged to Home. Impression: Low back pain. Condition is em Stable. Forms are Medication Reconciliation Form, Thank You Letter, Antibiotic Education, Prescription Opioid Use. Follow up: Emergency Department; When: As needed; Reason: Worsening of condition. Follow up: Private Physician; When: 2 - 3 days; Reason: Recheck today's complaints, Continuance of care, Re-evaluation by your physician. Problem is new. Symptoms have improved. pm1
--- NOTE | 2020-03-24 10:03 | ER ---
Nurse's Notes [facility] Name: Catherine Herring Age: 50 yrs Sex: Female : 1970 Arrival Date: 03/24/2020 Time: 08:15 Bed 5 Private MD: Diagnosis: Low back pain Presentation: 03/24 08:24 Chief complaint: Patient states: mid back pain radiates to right since waking this iw morning. Coronavirus screen: At this time, the client does not indicate any symptoms associated with coronavirus-19. Ebola Screen: Patient negative for fever greater than or equal to 101.5 degrees Fahrenheit, and additional compatible Ebola Virus Disease symptoms Patient denies exposure to infectious person. Patient denies travel to an Ebola-affected area in the 21 days before illness onset. No symptoms or risks identified at this time. 08:24 Method Of Arrival: Ambulatory iw 08:26 Initial Sepsis Screen: Does the patient meet any 2 criteria? No. Patient's initial iw sepsis screen is negative. Does the patient have a suspected source of infection? No. Patient's initial sepsis screen is negative. Risk Assessment: Do you want to hurt yourself or someone else? Patient reports no desire to harm self or others. Onset of symptoms was March 24, 2020. 08:26 Acuity: RIVERA 3 iw Triage Assessment: 08:30 General: Appears distressed, uncomfortable, obese, Behavior is cooperative, appropriate bp for age, anxious. Pain: Complains of pain in back and right low back. EENT: No deficits noted. Neuro: No deficits noted. Cardiovascular: No deficits noted. Respiratory: No deficits noted. GI: No signs and/or symptoms were reported involving the gastrointestinal system. : No signs and/or symptoms were reported regarding the genitourinary system. Derm: No deficits noted. Musculoskeletal: Circulation, motion, and sensation intact. Range of motion: intact in all extremities. Historical: - Allergies: 08: No Known Allergies; iw - PMHx: 08:27 Diverticulitis; iw - PSHx: 08:27 Partial hysterectomy; Tubal ligation; Cholecystectomy; iw Screenin:25 Abuse screen: Denies threats or abuse. Nutritional screening: No deficits noted. em Tuberculosis screening: No symptoms or risk factors identified. Fall Risk None identified. Assessment: 08:25 General: Appears in no apparent distress. uncomfortable, Behavior is calm, cooperative, em appropriate for age, Denies fever. Pain: Complains of pain in left low back and right low back Pain does not radiate. Pain currently is 10 out of 10 on a pain scale. Pain began this morning. Neuro: Level of Consciousness is awake, alert, obeys commands, Oriented to person, place, time, situation, Appropriate for age. Cardiovascular: Capillary refill < 3 seconds Patient's skin is warm and dry. Respiratory: Airway is patent Respiratory effort is even, unlabored, Respiratory pattern is regular, symmetrical. GI: Patient currently denies abdominal pain, nausea, vomiting. : Denies burning with urination. Derm: Skin is intact, is healthy with good turgor, Skin is pink, warm \T\ dry. Musculoskeletal: Capillary refill < 3 seconds, Range of motion: intact in all extremities. 09:19 Reassessment: Patient appears in no apparent distress at this time. Patient and/or em family updated on plan of care and expected duration. Pain level reassessed. Patient is alert, oriented x 3, equal unlabored respirations, skin warm/dry/pink. rates pain 7/10, appears uncomfortable. 10:02 Reassessment: Patient appears in no apparent distress at this time. Patient and/or em family updated on plan of care and expected duration. Pain level reassessed. Patient is alert, oriented x 3, equal unlabored respirations, skin warm/dry/pink. rates pain 4/10 Patient states feeling better. Vital Signs: 08:43 BP 130 / 88; Pulse 100; Resp 22; Temp 97.8; Pulse Ox 96% on R/A; Pain 10/10; em 09:24 BP 126 / 77; Pulse 90; Resp 18; Pulse Ox 97% on R/A; Pain 7/10; em ED Course: 08:15 Patient arrived in ED. ds1 08:20 Garo Cedeno NP is PHCP. pm1 08:20 Anish Tavares MD is Attending Physician. pm1 08:21 Misael Huerta, TESS is Primary Nurse. bp 08:25 Patient has correct armband on for positive identification. Bed in low position. Call em light in reach. 08:27 Triage completed. iw 08:30 Initial lab(s) drawn, by me, sent to lab. Inserted saline lock: 22 gauge in right em antecubital area, using aseptic technique. Blood collected. 08:56 CT Stone Protocol In Process Unspecified. EDMS 10:22 No provider procedures requiring assistance completed. em 10:34 IV discontinued, intact, bleeding controlled, No redness/swelling at site. Pressure em dressing applied. Administered Medications: 08:30 Drug: NS 0.9% 1000 ml Route: IV; Rate: 1000 ml; Site: right antecubital; em 10:33 Follow up: IV Status: Completed infusion; IV Intake: 1000ml em 08:30 Drug: Zofran (Ondansetron) 4 mg Route: IVP; Site: right antecubital; em 09:19 Follow up: Response: No adverse reaction em 08:32 Drug: morphine 4 mg Route: IVP; Site: right antecubital; em 09:19 Follow up: Response: No adverse reaction; Pain is unchanged, physician notified em 09:27 Drug: TORadol 30 mg Route: IVP; Site: right antecubital; em 10:02 Follow up: Response: No adverse reaction; Marked relief of symptoms; Pain is decreased em 09:27 Drug: Lidoderm 5 % (700 mg/patch) 1 patches Route: Topical; Site: affected area; em 10:02 Follow up: Response: No adverse reaction; Marked relief of symptoms; Pain is decreased em Intake: 10:33 IV: 1000ml; Total: 1000ml. em Outcome: 10:02 Discharge ordered by . pm1 10:34 Discharged to home ambulatory, with family. em 10:34 Condition: good 10:34 Discharge instructions given to patient, family, Instructed on discharge instructions, follow up and referral plans. medication usage, Demonstrated understanding of instructions, follow-up care, medications, Prescriptions given X 3. 10:34 Patient left the ED. em Signatures: Dispatcher [employer] EDMS Tom Merino RN RN em Clara Mckeon ds1 Regine Whittaker RN RN iw Garo Cedeno NP BUSINESS INTELLIGENCE ARCHITECT pm1 Miseal Huerta RN RN bp
[2020-03-24 10:34] LABS: Urine Blood NEGATIVE (NEG); Urine Glucose NEGATIVE (NEG); Urine Protein NEGATIVE (NEG); Urine pH 5.5 (5.0-7.0)
[2020-03-24 10:42] VITALS: TEMP 97.8
[2020-03-24 10:43] VITALS: BP 126/77; O2SAT 97
== END 2020-03-24 10:34 | disposition home or self-care (01) ==
LOC: ER 08:13
DX: M54.5 Low back pain (principal)
CPT/HCPCS: 96361; 85025; 80048; 36415; 80076; 81003; 83690; 76377; 74176; 96375; 96374; 99284; J7030; J2405

== ENCOUNTER 2024-08-03 16:11 | Emergency (ER) | payer BC, OTHER ==
--- NOTE | 2024-08-03 17:22 | RAD REPORT ---
EXAM: Chest Single View HISTORY: COPD;Cough COMPARISON: 09/04/2019 FINDINGS: LUNGS/PLEURA: The lungs are clear. No pleural effusions or pneumothorax. No pulmonary edema. MEDIASTINUM: The mediastinal silhouette is within normal limits. CARDIAC: The cardiac silhouette is within normal limits. UPPER ABDOMEN: No significant abnormality. BONES: No acute abnormality. LINES/TUBES/OTHER: N/A IMPRESSION: No evidence of acute cardiopulmonary disease.
[2024-08-03] MEDS ORDERED: ONDANSETRON 4 MG/2 ML VIAL ONE (18:23)
[2024-08-03] MEDS ORDERED: NA CHLORIDE 0.9% 1,000 ML ONE (18:23)
[2024-08-03] MEDS ORDERED: KETOROLAC 30 MG/ML INJ ONE (18:23)
[2024-08-03 18:34] LABS: Absolute Basophils 0.1 K/uL (0-0.5); Absolute Eosinophils 0.1 K/uL (0-0.5); Absolute Lymphocytes (CBC) 2.1 K/uL (0.7-4.9); Absolute Monocytes 0.7 K/uL (0.1-1.3); Absolute Neutrophil 5.1 K/uL (1.8-8.0); Eosinophils % 1.8 % (0-4.4); Hematocrit 46.3 % (36.0-45.0); Hemoglobin 15.4 g/dL (12.0-15.0); MCH 30.6 pg (27.0-35.0); MCHC 33.4 g/dL (32.0-36.0); MCV 91.7 fL (80-100); MPV 8.6 fL (7.6-11.3); Monocytes % 8.2 % (3.3-12.3); Nucleated Red Blood Cells % 0.3 % (0-0); Platelets 257 thou/uL (152-406); RBC Red Blood Cell Count 5.05 M/uL (3.86-4.86); Red Cell Distribution Width 13.6 % (12.1-15.2)
[2024-08-03 18:40] LABS: Specific Gravity > 1.030 (1.005-1.030); Sqamous Epithelial <5 /HPF (None Seen); Urine Bacteria None Seen /HPF (<20); Urine Bilirubin NEGATIVE (Negative); Urine Blood Negative (Negative); Urine Clarity Clear (Clear); Urine Color Yellow (Yellow); Urine Culture Reflex Order NOT NEEDED; Urine Glucose NEGATIVE (Negative); Urine Ketones 1+ (Negative); Urine Microscopic Reflex YN ORDER UMIC; Urine Mucus 1+ /HPF (None Seen); Urine Nitrite NEGATIVE (Negative); Urine Protein TRACE (Negative); Urine RBC <5 /HPF (None Seen); Urine Urobilinogen 1+ (Normal); Urine WBC <5 /HPF (<5); Urine Yeast (Budding) Trace /HPF (None Seen)
[2024-08-03 18:53] LABS: ALT/SGPT 32 U/L (13-56); AST/SGOT 22 U/L (15-37); Albumin 3.8 g/dL (3.4-5.0); Alkaline Phosphatase 122 U/L (45-117); Anion Gap 10.9 mEq/L (5.0-15.0); BUN Blood Urea Nitrogen 13 mg/dL (7-18); Bicarbonate 26 mEq/L (21-32); Bilirubin Total 0.2 mg/dL (0.2-1.0); Globulin 3.7 g/dL (2.3-3.5); Glomerular Filtration Rate 87 ml/min (=/>90); Glucose Level 109 mg/dL (74-106); Lipase 38 U/L (13-75); Potassium 3.9 mEq/L (3.5-5.1); Protein, Total 7.5 g/dL (6.4-8.2); Sodium Level 142 mEq/L (136-145)
[2024-08-03 18:54] LABS: SARS-CoV-2 Antigen CONTROL BLUE LINE VIS/BG OK; SARS-CoV-2 Antigen Rapid Res Negative (Negative)
[2024-08-03 18:55] LABS: Troponin High Sensitivity < 3.0 pg/mL (<58.9)
--- NOTE | 2024-08-03 20:26 | ER ---
Nurse's Notes [facility] Name: Catherine Herring Age: 54 yrs Sex: Female : 1970 Arrival Date: 08/03/2024 Time: 16:11 Bed DX1 Private MD: Diagnosis: Viral infection, unspecified Presentation: 08/03 16:24 Chief complaint: Patient states: ALFONSO started yesterday. Has abdominal cramps, ALFONSO, cough, ll1 body aches, chills started getting worse today. Coronavirus screen: Client denies travel out of the [place] in the last 14 days. chills, cough unrelated to allergies, headache, muscle pain, nausea, sore throat, vomiting. Client presents with at least one sign or symptom that may indicate coronavirus-19. Standard/surgical mask placed on the client. Ebola Screen: Patient denies travel to an Ebola-affected area in the 21 days before illness onset. Initial Sepsis Screen: Does the patient meet any 2 criteria? No. Patient's initial sepsis screen is negative. Does the patient have a suspected source of infection? No. Patient's initial sepsis screen is negative. Risk Assessment: Do you want to hurt yourself or someone else? Patient reports no desire to harm self or others. Onset of symptoms was August 02, 2024. 16:24 Method Of Arrival: Ambulatory ll1 16:24 Acuity: RIVERA 3 ll1 Triage Assessment: 16:24 General: Appears uncomfortable, Behavior is calm, cooperative, appropriate for age. ll1 General: Reports chills for fatigue for. Pain: Complains of pain in abdomen Quality of pain is described as crampy. Respiratory: Reports cough that is pain with cough. GI: Reports nausea, vomiting. Historical: - Allergies: 16:23 No Known Allergies; ll1 - PMHx: 16:23 Diverticulitis; ll1 - PSHx: 16:23 colon resection (Diverticulitis); ll1 - Immunization history:: Adult Immunizations up to date. - Infectious Disease History:: Denies. - Social history:: Smoking status: Patient/guardian denies using tobacco. Screenin:03 [facility] ED Fall Risk Assessment (Adult) History of falling in the last 3 months, lg3 including since admission No falls in past 3 months (0 pts) Confusion or Disorientation No (0 pts) Intoxicated or Sedated No (0 pts) Impaired Gait No (0 pts) Mobility Assist Device Used No (0 pt) Altered Elimination No (0 pt) Score/Fall Risk Level 0 - 2 = Low Risk Oriented to surroundings, Maintained a safe environment, Educated pt \T\ family on fall prevention, incl call for assistance when getting out of bed, Assessed \T\ reinforced patient's understanding of fall precautions. Abuse screen: Denies threats or abuse. Denies injuries from another. Nutritional screening: No deficits noted. Tuberculosis screening: No symptoms or risk factors identified. Assessment: 21:03 General: Appears in no apparent distress. comfortable, Behavior is calm, cooperative. lg3 Pain: Complains of pain in head and abdomen Pain does not radiate. Pain began 1 day ago. Neuro: No deficits noted. Macias Agitation-Sedation Scale (RASS): 0 - Alert and Calm Level of Consciousness is awake, alert, obeys commands, Oriented to person, place, time, situation, Reports headache. Cardiovascular: No deficits noted. Heart tones S1 S2 present Capillary refill < 3 seconds Clubbing of nail beds is absent JVD is absent Patient's skin is warm and dry. Respiratory: No deficits noted. Reports cough that is Airway is patent Respiratory effort is even, unlabored, Respiratory pattern is regular, symmetrical. GI: No deficits noted. Abdomen is round non-distended, Reports lower abdominal pain, upper abdominal pain, nausea. : No signs and/or symptoms were reported regarding the genitourinary system. EENT: No deficits noted. Reports nasal congestion. Derm: No deficits noted. No signs and/or symptoms reported regarding the dermatologic system. Skin is intact, is healthy with good turgor, Skin is dry, Skin is normal, Skin temperature is warm. Musculoskeletal: No deficits noted. Circulation, motion, and sensation intact. Range of motion: intact in all extremities. Vital Signs: 16:24 BP 127 / 76; Pulse 110; Resp 17; Temp 97.1; Pulse Ox 98% ; Weight 75.3 kg; Height 5 ft. ll1 3 in. ; 20:31 BP 114 / 67; Pulse 86; Resp 18; Temp 98.2; Pulse Ox 97% on R/A; hw 21:03 BP 117 / 74; Pulse 81; Resp 16 S; Temp 97.6(O); Pulse Ox 98% on R/A; lg3 16:24 Body Mass Index 29.41 (75.30 kg, 160.02 cm) ll1 ED Course: 16:14 Patient arrived in ED. sj2 16:15 Shante Monahan PA-C is PHCP. sb4 16:15 Sindhu Mcneil MD is Attending Physician. sb4 16:23 Arm band placed on. ll1 16:26 Triage completed. ll1 17:10 Chest Single View XRAY In Process Unspecified. EDMS 18:26 Initial lab(s) drawn, by me, sent to lab. COVID swab sent to lab. Flu and/or RSV swab hb sent to lab. Strep swab sent to lab. Inserted saline lock: 20 gauge in left antecubital area, using aseptic technique. Blood collected. Flushed with 10 mL NS. 18:34 Strep Sent. hb 18:34 Troponin High Sensitivity Sent. hb 18:34 CBC with Diff Sent. hb 18:34 CMP Sent. hb 18:34 Lipase Sent. hb 18:34 Urinalysis w/ reflexes Sent. hb 18:34 Flu Sent. hb 18:34 SARS RAPID Sent. hb 21:03 Patient has correct armband on for positive identification. lg3 21:03 No provider procedures requiring assistance completed. IV discontinued, intact, lg3 bleeding controlled, No redness/swelling at site. Pressure dressing applied. Patient maintains SpO2 saturation greater than 95% on room air. Administered Medications: 18:34 Drug: NS 0.9% IV 1000 ml IV at 1 bolus Per protocol; to be given as a bolus over 60 hb minutes Route: IV; Rate: 1 bolus; Site: left antecubital; 21:06 Follow up: Response: No adverse reaction; IV Status: Completed infusion; IV Intake: lg3 1000ml 18:34 Drug: Ketorolac IVP 15 mg IVP once Route: IVP; Site: left antecubital; hb 21:06 Follow up: Response: No adverse reaction; Marked relief of symptoms lg3 18:34 Drug: Ondansetron IVP 4 mg IVP once; over 2 minutes Route: IVP; Site: left antecubital; hb 21:06 Follow up: Response: No adverse reaction; Marked relief of symptoms lg3 Medication: 21:03 VIS not applicable for this client. lg3 Intake: 21:06 IV: 1000ml; Total: 1000ml. lg3 Outcome: 20:25 Discharge ordered by . sb4 21:03 Discharged to home ambulatory, lg3 21:03 Condition: stable 21:03 Discharge instructions given to patient, Instructed on discharge instructions, follow up and referral plans. medication usage, Demonstrated understanding of instructions, follow-up care, medications, Prescriptions given X 4, 21:07 Patient left the ED. lg3 Signatures: Dispatcher [employer] EDMS Tea Reilly RN RN Christina Aparicio RN RN lg3 Dashawn Brown, RN RN ll1 Shante Monahan, PA-C PA-C sb4 Quin Emery Sonceria sj2 Corrections: (The following items were deleted from the chart) 21:06 21:03 Client placed on continuous cardiac and pulse oximetry monitoring. NIBP lg3 monitoring applied. lg3
--- NOTE | 2024-08-03 20:26 | EDPHYS ---
Physician Documentation [facility] Name: Catherine Herring Age: 54 yrs Sex: Female : 1970 Arrival Date: 08/03/2024 Time: 16:11 Bed DX1 Private MD: ED Physician Sindhu Mcneil HPI: 08/03 16:44 This 54 yrs old Female presents to ER via Ambulatory with complaints of sb4 Vomiting, Flu Symptoms, Painful Cough. 16:44 flu like symptoms x 24 hours. headache, cough, sore throat, nausea, and vomiting. sb4 denies sick contacts. denies any fever. denies chronic medical problems. Historical: - Allergies: 16:23 No Known Allergies; ll1 - PMHx: 16:23 Diverticulitis; ll1 - PSHx: 16:23 colon resection (Diverticulitis); ll1 - Immunization history:: Adult Immunizations up to date. - Infectious Disease History:: Denies. - Social history:: Smoking status: Patient/guardian denies using tobacco. ROS: 16:44 Constitutional: Negative for fever, chills, and weight loss, sb4 16:44 ENT: Positive for sinus congestion, sore throat, 16:44 Respiratory: Positive for cough, 16:44 Abdomen/GI: Positive for nausea and vomiting, 16:44 Neuro: Positive for headache, 16:44 All other systems are negative, Exam: 16:44 Head/Face: Normocephalic, atraumatic. Eyes: Extra-ocular motions intact. Periorbital sb4 areas with no swelling, redness, or edema. ENT: Mucous membranes moist. Cardiovascular: Regular rate and rhythm with a normal S1 and S2. Respiratory: No increased work of breathing, no retractions or nasal flaring. Abdomen/GI: Soft, non-tender, no distension. Skin: Warm, dry with normal turgor. Normal color with no rashes, no lesions, and no evidence of cellulitis. 16:44 Constitutional: The patient appears in no acute distress, alert, awake, obviously ill, 16:44 ENT: TM's: are normal, no evidence of bulging, no dullness, no erythema, Posterior pharynx: is normal, no acute changes, Airway: normal, no evidence of obstruction, 16:44 Respiratory: Breath sounds: are clear throughout, Vital Signs: 16:24 BP 127 / 76; Pulse 110; Resp 17; Temp 97.1; Pulse Ox 98% ; Weight 75.3 kg; Height 5 ft. ll1 3 in. ; 20:31 BP 114 / 67; Pulse 86; Resp 18; Temp 98.2; Pulse Ox 97% on R/A; hw 21:03 BP 117 / 74; Pulse 81; Resp 16 S; Temp 97.6(O); Pulse Ox 98% on R/A; lg3 16:24 Body Mass Index 29.41 (75.30 kg, 160.02 cm) ll1 MDM: 16:16 Medical Screening Exam initiated sb4 20:31 Data reviewed: vital signs, nurses notes, lab test result(s), radiologic studies, and sb4 as a result, I will discharge patient. Counseling: I had a detailed discussion with the patient and/or guardian regarding the historical points, exam findings, and any diagnostic results supporting the discharge/admit diagnosis, lab results, radiology results, the need for outpatient follow up, for definitive care, to return to the emergency department if symptoms worsen or persist or if there are any questions or concerns that arise at home. 08/03 16:31 Order name: SARS RAPID; Complete Time: 18:55 sb4 08/03 16:31 Order name: Flu; Complete Time: 18:55 sb4 08/03 16:31 Order name: CBC with Diff; Complete Time: 18:55 sb4 08/03 16:31 Order name: CMP; Complete Time: 18:55 sb4 08/03 16:31 Order name: Lipase; Complete Time: 18:55 sb4 08/03 16:31 Order name: Urinalysis w/ reflexes; Complete Time: 18:44 sb4 08/03 16:31 Order name: Troponin High Sensitivity; Complete Time: 18:55 sb4 08/03 16:31 Order name: Strep; Complete Time: 18:55 sb4 08/03 18:56 Order name: Throat Culture [facility] 08/03 16:31 Order name: Chest Single View XRAY; Complete Time: 17:22 sb4 08/03 16:31 Order name: IV Saline Lock; Complete Time: 18:27 sb4 08/03 16:31 Order name: Labs collected and sent; Complete Time: 18:27 sb4 08/03 19:01 Order name: PO challenge; Complete Time: 20:42 sb4 08/03 19:01 Order name: Vital Signs; Complete Time: 20:38 sb4 Administered Medications: 18:34 Drug: NS 0.9% IV 1000 ml IV at 1 bolus Per protocol; to be given as a bolus over 60 hb minutes Route: IV; Rate: 1 bolus; Site: left antecubital; 21:06 Follow up: Response: No adverse reaction; IV Status: Completed infusion; IV Intake: lg3 1000ml 18:34 Drug: Ketorolac IVP 15 mg IVP once Route: IVP; Site: left antecubital; hb 21:06 Follow up: Response: No adverse reaction; Marked relief of symptoms lg3 18:34 Drug: Ondansetron IVP 4 mg IVP once; over 2 minutes Route: IVP; Site: left antecubital; hb 21:06 Follow up: Response: No adverse reaction; Marked relief of symptoms lg3 Disposition Summary: 08/03/24 20:25 Discharge Ordered Notes: Location: Home sb4 Problem: new sb4 Symptoms: have improved sb4 Condition: Stable sb4 Diagnosis - Viral infection, unspecified sb4 Followup: sb4 - With: Emergency Department - When: As needed - Reason: Trouble breathing, Worsening of condition Discharge Instructions: - Discharge Summary Sheet sb4 - Viral Illness, Adult sb4 Forms: - Patient Portal Instructions sb4 - Leadership Thank You Letter sb4 Prescriptions: - ondansetron 4 mg Oral Tablet,disintegrating - take 1 tablet ORAL route every 6 hours as needed for nausea and vomiting; 10 sb4 tablet; Refills: 0, Product Selection Permitted - Ibuprofen 800 mg Oral Tablet - take 1 tablet ORAL route every 8 hours As needed take with food; 30 tablet; sb4 Refills: 0, Product Selection Permitted - Prednisone 20 mg Oral Tablet - take 1 tablet ORAL route once daily for 5 days; 5 tablet; Refills: 0, Product sb4 Selection Permitted - Tessalon Perles 100 mg Oral Capsule - take 1 capsule ORAL route every 8 hours As needed; 15 capsule; Refills: 0, sb4 Product Selection Permitted Signatures: Dispatcher [employer] Tea Bridges RN RN hb Able, Lacie, RN RN lg3 Dashawn Brown RN RN ll1 Shante Monahan PA-C PA-C sb4 Corrections: (The following items were deleted from the chart) 16:32 16:32 SARS-COV-2 Antigen Rapid+I.LAB.BRZ ordered. EDMS EDMS 16:32 16:32 Influenza Screen (A \T\ B)+BA.LAB.BRZ ordered. EDMS EDMS 16:32 16:32 CBC+H.LAB.BRZ ordered. EDMS EDMS 16:32 16:32 COMPREHENSIVE METABOLIC PANEL+C.LAB.BRZ ordered. EDMS EDMS 16:32 16:32 LIPASE+C.LAB.BRZ ordered. EDMS EDMS 16:32 16:32 Urinalysis+U.LAB.BRZ ordered. EDMS EDMS 16:32 16:32 Troponin High Sensitivity+C.LAB.BRZ ordered. EDMS EDMS 16:32 16:32 Group A Streptococcus Rapid Sc+BA.LAB.BRZ ordered. EDMS EDMS
[2024-08-03 21:32] VITALS: BP 117/74; TEMP 97.6; O2SAT 98
== END 2024-08-03 21:07 | disposition home or self-care (01) ==
LOC: ER 16:11
DX: B34.9 Viral infection, unspecified (principal); R11.2 Nausea with vomiting, unspecified; Z11.52 Encounter for screening for COVID-19
CPT/HCPCS: 96361; 87070; 85025; 81001; 36415; 87081; 84484; 83690; 80053; 87804 ×2; 71045; 96375; 96374; 99284; 87811; J2405; J7030